=== PATIENT | female | born 1935 | race Caucasian/White ===

== ENCOUNTER 2024-04-04 09:19 | Outpatient (CLI) | payer MEDICARE, OTHER, SELFPAY | END 2024-04-04 09:20 | disposition home or self-care (01) | LOC: NFLDREF 04-08 02:47 | PROVIDERS: PCP Internal Medicine; Visit Provider Internal Medicine | DX: E78.5 Hyperlipidemia, unspecified (principal); I10 Essential (primary) hypertension | CPT/HCPCS: 80053; 80061 ==

== ENCOUNTER 2024-04-14 15:39 | Emergency (ER) | payer MEDICARE, OTHER, SELFPAY ==
--- OUTSIDE RECORDS SUMMARY | 2024-04-14 15:43 | XMS_ITS | Encounter Summary ---
Author Organization [facility] [employer] Formerly [facility] work Address [address] [place] [address] Care Team Providers Care Administrative Staff Supervisor Name Role Phone Marv Mcclendon MD Primary Care Provider + Encounter Details Date Type Department Care Team (Late st Contact Info) Description 06/25/2010 Logician Conversion V [facility] INFO MGT [address] [place] [phone] Social History Tobacco Use Types Packs/Day Years Used Date Smoking Tobacco: Never Assessed Comments Unknown Sex and Gender Information Value Date Recorded Sex Assigned at Not on file Legal Sex Female 12:19 PM EST Gender Identity Not on file Sexual Orientation Not on file documented as of this encounter Last Filed Vital Signs Vital Sign Reading Time Taken Comments Blood Pressure - - Pulse 60 06/25/2010 11:28 AM EDT Temperature - - Respiratory Rate - - Oxygen Saturation - - Inhaled Oxygen Concentration - - Weight 97.5 kg (215 lb) 06/25/2010 11:28 AM EDT Height - - Body Mass Index 35.78 01/30/2010 10:50 AM EST documented in this encounter Plan of Treatment Not on file documented as of this encounter Visit Diagnoses Not on filedocumented in this encounter Care Teams Administrative Staff Supervisor Relationship Specialty Start Date End Date Marv Mcclendon MD [address] [place] [address] PCP - General Internal Medicine 10/11/11 documented as of this encounter
--- OUTSIDE RECORDS SUMMARY | 2024-04-14 15:43 | XMS_ITS | Encounter Summary ---
Author Organization [facility] [employer] [facility] work Address [address] [place] [address] Care Team Providers Care Supervisor Chassis Assembly Name Role Phone Marv Mcclendon MD Primary Care Provider + Encounter Details Date Type Department Care Team (Late st Contact Info) Description 06/12/2011 Logician Conversion V [facility] INFO MGT [address] [place] [phone] Social History Tobacco Use Types Packs/Day Years [...] Taken Comments Blood Pressure - - Pulse 63 06/12/2011 11:32 AM EDT Temperature - - Respiratory Rate - - Oxygen Saturation - - Inhaled Oxygen Concentration - - Weight 96.7 kg (213 lb 1.6 oz) 06/12/2011 11:32 AM EDT Height - - Body Mass Index 35.46 01/30/2010 10:50 AM EST documented in this encounter Plan of Treatment Not on file documented as of this encounter Visit Diagnoses Not on filedocumented in this encounter Care Teams Supervisor Chassis Assembly Relationship Specialty Start Date End Date Marv Mcclendon MD [address] [place] [address] PCP - General Internal Medicine 10/11/11 documented as of this encounter
--- OUTSIDE RECORDS SUMMARY | 2024-04-14 15:44 | XMS_ITS | Encounter Summary ---
Author Organization [facility] [employer] [facility] work Address [address] [place] [address] Care Team Providers Care Health Care Facilities Inspector Name Role Phone Marv Mcclendon MD Primary Care Provider + Encounter Details Date Type Department Care Team (Late st Contact Info) Description 12/18/2010 Logician Conversion V [facility] INFO MGT [address] [place] [phone] Social History Tobacco Use Types Packs/Day Years [...] Taken Comments Blood Pressure - - Pulse 72 12/18/2010 8:19 AM EDT Temperature - - Respiratory Rate - - Oxygen Saturation - - Inhaled Oxygen Concentration - - Weight 94.3 kg (208 lb) 12/18/2010 8:19 AM EDT Height - - Body Mass Index 34.61 01/30/2010 10:50 AM EST documented in this encounter Plan of Treatment Not on file documented as of this encounter Visit Diagnoses Not on filedocumented in this encounter Care Teams Health Care Facilities Inspector Relationship Specialty Start Date End Date Marv Mcclendon MD [address] [place] [address] PCP - General Internal Medicine 10/11/11 documented as of this encounter
--- OUTSIDE RECORDS SUMMARY | 2024-04-14 15:44 | XMS_ITS | Encounter Summary ---
Author Organization [facility] Formerly [facility] work Address [address] [place] [address] Care Team Providers Care Manager Infrastructure Name Role Phone Marv Mcclendon MD Primary Care Provider + Encounter Details Date Type Department Care Team (Late st Contact Info) Description 01/30/2010 Logician Conversion V [facility] INFO MGT [address] [place] [phone] Social History Tobacco Use Types Packs/Day Years [...] Taken Comments Blood Pressure - - Pulse 98 01/30/2010 10:50 AM EST Temperature - - Respiratory Rate - - Oxygen Saturation - - Inhaled Oxygen Concentration - - Weight 99.3 kg (219 lb) 01/30/2010 10:50 AM EST Height 165.1 cm (5' 5) 01/30/2010 10:50 AM EST Body Mass Index 36.44 01/30/2010 10:50 AM EST documented in this encounter Plan of Treatment Not on file documented as of this encounter Visit Diagnoses Not on filedocumented in this encounter Care Teams Manager Infrastructure Relationship Specialty Start Date End Date Marv Mcclendon MD [address] [place] [address] PCP - General Internal Medicine 10/11/11 documented as of this encounter
--- OUTSIDE RECORDS SUMMARY | 2024-04-14 15:45 | XMS_ITS | Encounter Summary ---
Author Organization [facility] work Address [address] [place] [address] Care Team Providers Care Miller Helper Name Role Phone Marv Mcclendon MD Primary Care Provider + Reason for Visit * Reason Comments Medication Refill Encounter Details Date Type Department Care Team (Late st Contact Info) Description 01/25/2016 Refill [facility] [address] [place] [phone] Saira Norwood NP [address] [place] [address] [place] [phone] Medication Refill Social History Tobacco Use Types Packs/Day Years Used Date Smoking Tobacco: Never Smokeless Tobacco: Never Alcohol Use Standard Drinks/Week Comments Yes 0 (1 standard drink = 0.6 oz pur e alcohol) 1 drink a day Comments No Sex and Gender Information Value Date Recorded Sex Assigned at Not on file Legal Sex Female 12:19 PM EST Gender Identity Not on file Sexual Orientation Not on file documented as of this encounter Plan of Treatment Not on file documented as of this encounter Visit Diagnoses Diagnosis Essential hypertension, benign documented in this encounter Care Teams Miller Helper Relationship Specialty Start Date End Date Marv Mcclendon MD [address] [facility] [place] [address] PCP - General Internal Medicine 10/11/11 documented as of this encounter
--- OUTSIDE RECORDS SUMMARY | 2024-04-14 15:45 | XMS_ITS | Encounter Summary ---
Author Organization [employer] work Address [address] [place] [address] [place] [address] Care Team Providers Care Conveyor Feeder Offbearer Name Role Phone Marv Mcclendon MD Primary Care Provider + Encounter Details Date Type Department Care Team (Latest Contact Info) Description 01/26/2018 IHIE Encounter HILLARY Ochoa Doctor No Address on File Social History Tobacco Use Types Packs/Day Years [...] on file documented as of this encounter Procedure Notes * Doctor Don - 01/26/2018 6:27 PM ESTAssociated Order(s): HIE LABORATORY RESULT This final report originated from an external system. Edits and Signatures are only valid in the legal medical record. IHIE: Ammonia ORDERED BY: DANGELO TORREZ (BiiCode) Lab Result Units Range Ammonia 27 umol/L 18-72 * Doctor Don - 01/26/2018 6:27 PM ESTAssociated Order(s): HIE LABORATORY RESULT This final report originated from an external system. Edits and Signatures are only valid in the legal medical record. IHIE: TSH ORDERED BY: DANGELO [employer] (BiiCode) Lab Result Units Range TSH 0.40 uIU/mL 0.30-4.20 * Doctor Don - 01/26/2018 6:27 PM ESTAssociated Order(s): HIE LABORATORY RESULT This final report originated from an external system. Edits and Signatures are only valid in the legal medical record. IHIE: Vit B12 ORDERED BY: DANGELO [employer] (BiiCode) Lab Result Units Range Vitamin B12 Lvl 385 pg/mL 213-816 documented in this encounter Plan of Treatment Not on file documented as of this encounter Procedures Procedure Name Priority Date/Time Associated Diagnosis Comments HIE LABORATORY RESULT 01/26/2018 6:27 PM EST HIE LABORATORY RESULT 01/26/2018 6:27 PM EST HIE LABORATORY RESULT 01/26/2018 6:27 PM EST documented in this encounter Results * HIE LABORATORY RESULT (01/26/2018 6:27 PM EST) Narrative Procedure Note [facility] mattie - 01/26/2018 6:27 PM EST This final report originated from an external system. Edits and Signatures are only valid in the legal medical record. IHIE: Vit B12 ORDERED BY: DANGELO TORREZ (BiiCode) Lab Result Units Range Vitamin B12 Lvl 385 pg/mL 213-816 Doctor [employer] [id number] Final Result * HIE LABORATORY RESULT (01/26/2018 6:27 PM EST) Narrative Procedure Note [employer] mattie - 01/26/2018 6:27 PM EST This final report originated from an external system. Edits and Signatures are only valid in the legal medical record. IHIE: TSH ORDERED BY: DANGELO TORREZ (BiiCode) Lab Result Units Range TSH 0.40 uIU/mL 0.30-4.20 us Doctor [employer] [id number] Final Result * HIE LABORATORY RESULT (01/26/2018 6:27 PM EST) Narrative Procedure Note Doctor Don - 01/26/2018 6:27 PM EST This final report originated from an external system. Edits and Signatures are only valid in the legal medical record. IHIE: Ammonia ORDERED BY: DANGELO TORREZ (EPIC) Lab Result Units Range Ammonia 27 umol/L 18-72 us Doctor [employer] [id number] Final Result documented in this encounter Visit Diagnoses Not on filedocumented in this encounter Care Teams Conveyor Feeder Offbearer Relationship Specialty Start Date End Date Marv Mcclendon MD [address] [address] PCP - General Internal Medicine 10/11/11 documented as of this encounter
--- OUTSIDE RECORDS SUMMARY | 2024-04-14 15:45 | XMS_ITS | Clinical Summary ---
Author Organization [facility] Address [address] [place] [address] Care Team Providers Care Electronic Parts Designer Name Role Phone Malia Mcclendon MD Primary Care Provider Aide Anguiano MD Unavailable [phone] Colby Christopher MD Unavailable [phone] Allergies No known active allergies Medications pravastatin (PRAVACHOL) 40 mg tablet Take 40 mg by mouth nightly Active carvedilol (COREG) 6.25 mg tablet Take 6.25 mg by mouth 2 (two) times daily with meals. Active tolterodine (DETROL LA) 4 mg ER capsule Take 4 mg by mouth daily Active CRANBERRY FRUIT EXTRACT (CRANBERRY EXTRACT, BULK,) by Does not apply route daily Active Cislc-0-DVD-EPA -Fish Oil (FISH OIL) 1,000 mg (120 mg-180 mg) cap Take 1,000 mg by mouth daily Active cholecalciferol (VITAMIN D3) 400 unit tab Take 400 Units by mouth daily Active BENEFIBER, WHEAT DEXTRIN, PO Take by mouth Active zoledronic acid (ZOMETA IV) Inject into the vein once Active acetaminophen (TYLENOL) 500 mg tablet Take 500 mg by mouth every 6 (six) hours as needed for Pain Active naproxen sodium (ALEVE PO) Take by mouth Active sertraline (ZOLOFT) 100 mg tablet Take 100 mg by mouth daily 11/07/2020 Active Meclizine (ANTIVERT) 25 mg tablet 11/05/2020 Active traZODone (DESYREL) 50 mg tab tablet Take by mouth at bedtime daily 12/14/2020 Active Active Problems Problem Noted Date Diagnosed Date Status post parathyroidectomy 07/03/2019 Primary hyperparathyroidism 05/05/2018 Right thyroid nodule 05/05/2018 Osteopenia of hip 05/05/2018 Essential hypertension 05/05/2018 Postmenopausal osteoporosis 04/16/2016 History of invasive breast cancer 10/02/2010 Cancer Staging:Clinical stage from 03/18/2008:Stage IA(T1c, N0, M0) - Signed by Nate Olivarez MD on 04/16/2016 Assessment & Plan (10/02/2010 12:12 PM EDT): 2007 Hypercalcemia 10/02/2010 Nodular goiter 10/02/2010 Family History Medical History Relation Name Comments Cancer Brother 1X Hx prostate can cer Clotting Disorder Brother 1X Pacemaker Brother 1X Cancer Sister 2X Hx breast cance r Skin Cancer Sister 2X No Known Problems Son 3X Relation Name Status Comments Brother 1X Alive Father (Age 97) Age Maternal Grandfather Maternal Grandmother Mother (Age 77) Defibrilat ion Paternal Grandfather Paternal Grandmother Sister 2X Alive Son 3X Alive Social History Tobacco Use Types Packs/Day Years Used Date Smoking Tobacco: Never Smokeless Tobacco: Never Alcohol Use Standard Drinks/Week Comments Yes 0.8 (1 standard drink = 0.6 oz p ure alcohol) 1 DRINK PER DAY AUDIT-C Answer Date Recorded Frequency of Alcohol Consumption 4 or more times a week 05/02/2018 Average Number of Drinks Not on file 019 Frequency of Binge Drinking Not on file 04/15 Comments No Sex and Gender Information Value Date Recorded Sex Assigned at Not on file Legal Sex Female 10:01 PM EST Gender Identity Not on file Sexual Orientation Not on file Last Filed Vital Signs Vital Sign Reading Time Taken Comments Blood Pressure 138/61 12/27/2020 1:55 PM EST Pulse 84 12/27/2020 1:55 PM EST Temperature 37 C (98.6 F) 12/27/2020 1:55 PM EST Respiratory Rate 18 01/03/2020 1:04 PM EST Oxygen Saturation 100% 12/27/2020 1:55 PM EST Inhaled Oxygen Concentration - - Weight 77.1 kg (170 lb) 12/27/2020 1:55 PM EST Height 162.6 cm (5' 4) 12/27/2020 1:55 PM EST Body Mass Index 29.18 12/27/2020 1:55 PM EST Plan of Treatment Health Maintenance Due Date Last Done Comments Well Visit 1940 Depression Screening 06/01/1955 Tdap/Td Vaccination (1 - Tdap) 1958 Pneumococcal Vaccination (1 of 1 - PCV) 06/01/1987 Zoster (Shingrix) Vaccinatio n (1 of 2) 06/01/1987 RSV Vaccination (1 - 1-dose 75+ series) 2012 Lab-Diabetes Screening (Gluc ose or HgA1c) 12/27/2021 12/27/2020, 01/03/2020, 06/29/2019, Additional history exists Influenza Vaccination (#1) 2023 COVID-19 Vaccine (1 - 2023-2 5 season) 2023 Lab-Lipid Screening 08/30/2025 08/30/2020, 9 Procedures Procedure Name Priority Date/Time Associated Diagnosis Comments COMPREHENSIVE METABOLIC PANEL Routine 12/27/2020 1:46 PM EST Postmenopausal osteoporosis LIPID PROFILE WITH REFLEX TO LDL, DIRECT Routine 11/11/2018 11:11 AM EDT from Last 3 Months or Most Recently Relevant to Health Maintenance Results * (ABNORMAL) COMPREHENSIVE METABOLIC PANEL (12/27/2020 1:46 PM EST) GLUCOSE 122(H) 70 - 99 mg/dL [facility] BUN 21 7 - 25 mg/dL [facility] CREATININE 0.8 0.6 - 1.2 mg/dL [facility] SODIUM 136 133 - 144 meq/L [facility] POTASSIUM 3.7 3.5 - 5.2 meq/L [facility] CHLORIDE 99 98 - 107 meq/L [facility] CARBON DIOXIDE 30.0 21.0 - 31.0 meq/L [facility] CALCIUM 9.8 8.6 - 10.3 mg/dL [facility] ALBUMIN 4.2 3.5 - 5.7 g/dL [facility] PROTEIN, TOTAL 7.1 6.4 - 8.9 g/dL [facility] ALKALINE PHOSPHATASE (ALP) 52 34 - 104 U/L [facility] AST (SGOT) 16 13 - 39 U/L [facility] ALT (SGPT) 15 7 - 52 U/L [facility] BILIRUBIN TOTAL 0.8 0.3 - 1.0 mg/dL [facility] ANION GAP 7.0 6.2 - 14.7 meq/L [facility] Plasma Venipuncture / Unknown 12/27/2020 1:46 PM EST 12/27/2020 1:58 PM EST Nate Olivarez MD LAB BLOOD ORDERABLES Final R esult [facility] * LIPID PANEL (11/11/2018 11:11 AM EDT) TRIGLYCERIDES 96 0 - 150 EXTERNAL LAB CHOLESTEROL 183 0 - 200 EXTERNAL LAB HDL CHOLESTEROL 66 >39 EXTERNAL LAB LDL CHOLESTEROL 98 0 - 100 EXTERNAL LAB NON-HDL CHOLESTEROL 117.10 0.00 - 130.00 EXTERNAL LAB VLDL Calculated 19 5 - 35 EXTERNAL LAB CHOL HDLC RATIO 2.8 2.5 - 5.0 EXTERNAL LAB Blood Historical Provider LAB BLOOD ORDERABLES Edited Result - Final EXTERNAL LAB from Last 3 Months or Most Recently Relevant to Health Maintenance Insurance MEDICARE FOR LIFE WPS Advance Directives Documents on File Type Date Recorded Patient Meeting Planner Expl anation Advanced Directives 07/05/2019 4:12 PM Advanced Directives 07/05/2019 7:39 AM Power of Fitting Supervisor 02/19/2015 9:52 AM [place]eru scan, Living will Power of Fitting Supervisor 02/19/2015 9:52 AM [place]eru scan, Living will pg 2 * Full Code (Latest Code Status on File) Date Activated Date Inactivated Comments 07/03/2019 2:46 PM 07/04/2019 5:25 PM A code statu s order for Full Code means all appropriate CPR measures as defined in Code Status policy will be initiated in the event of cardiac and/or pulmonary arrest. Care Teams Electronic Parts Designer Relationship Specialty Start Date End Date Malia Mcclendon MD PCP - General 10/03/10 Aide Anguiano MD [address] [place] [address] Hematology and Oncology 10/03/10 Colby Christopher MD [address] [place] [address] 10/03/10
--- OUTSIDE RECORDS SUMMARY | 2024-04-14 15:45 | XMS_ITS | Clinical Summary ---
Author Organization [employer] Address [address] [place] [address] [place] [address] Care Team Providers Care Chief Human Resources Officer Name Role Phone Marv Mcclendon MD Primary Care Provider + Allergies No known active allergies Medications pravastatin (PRAVACHOL) 40 MG tablet Take 1 tablet by mouth daily. 5 08/27/2014 Active cranberry extract 500 mg Tab Take 1 tablet by mouth Daily after dinner. 02/19/2018 Active tolterodine (DETROL LA) 4 MG 24 hr capsule Take 4 mg by mouth daily. Active omega 6-cph-sfa-fish oil (FISH OIL) 1,000 mg (120 mg-180 mg) Cap Take 1 tablet by mouth as needed. 02/19/2018 Active aspirin 81 MG enteric coated tablet Take ONE tablet (81 mg total) by mouth daily with breakfast. 30 tablet 2 02/05/2018 Active carvedilol (COREG) 6.25 MG tablet Take 6.25 mg by mouth 2 (two) times daily with meals. Active Active Problems Problem Noted Date Diagnosed Date Heart murmur 01/05/2014 Carotid bruit 01/05/2014 Obesity (BMI 30.0-34.9) 01/05/2014 Metabolic syndrome 01/05/2014 Dyslipidemia 06/10/2012 High risk medication use with drug - drug intera ction 06/10/2012 ASHD (arteriosclerotic heart disease) 12/11/2011 Arthritis 12/11/2011 Encounter for long-term (cur rent) use of high-risk medication 12/11/2011 Hypercholesterolemia 10/11/2011 Primary hyperparathyroidism 10/11/2011 Essential hypertension, benign 10/11/2011 Sleep apnea 10/11/2011 Overview (03/11/2015): Updated VIA IMO REplacement Resolved Problems Problem Noted Date Diagnosed Date Resolved Date Weakness generalized 01/28/2018 019 [place] (dyspnea on exertion) 12/11/2011 Malaise and fatigue 10/11/2011 04/23/19 19 Overview (03/13/2015): Updated by IMO Diagnosis Update Type 2 diabetes mellitus wit hout complications 10/11/2011 10/20/2011 Overview (03/13/2015): Updated by IMO Diagnosis Update Immunizations Name Administration Dates Next Due Fluzone Intramuscular 12/29/2012 Family History Medical History Relation Comments Dementia Brother Relation Status Comments Brother Alive Father Mother Social History Tobacco Use Types Packs/Day Years [...] Sign Reading Time Taken Comments Blood Pressure 119/75 09/07/2019 9:16 AM EDT Pulse 72 05/25/2018 10:47 AM EDT Temperature 36.9 C (98.5 F) 02/13/2018 2:39 PM EST Respiratory Rate 18 02/08/2018 7:42 AM EST Oxygen Saturation 98% 05/25/2018 10:47 AM EDT Inhaled Oxygen Concentration - - Weight 90.7 kg (200 lb) 09/07/2019 9:16 AM EDT Height 162.6 cm (5' 4) 09/07/2019 9:16 AM EDT Body Mass Index 34.33 09/07/2019 9:16 AM EDT Plan of Treatment Health Maintenance Due Date Last Done Comments Diabetes Foot Exam 1935 Diabetes Ophthalmology Exam 1937 SDOH 1935 Tetanus/Pertussis Adult Vacc ine (One-time Booster) 1956 Pneumococcal Vaccine Series (Ages 65+) (1 of 1 - PCV) 06/01/1987 Zoster Vaccines (1 of 2) 06/01/1987 Annual Medicare Wellness Exam 01/05/2014 Hemoglobin A1c 08/14/2018 02/13/2018, 12/19/2009 COVID-19 Vaccine ( season) 2023 Influenza Vaccine (#1) 2023 12/29/2012 Annual Adult Depression Screen 02/16/2024 Medical Devices Implanted Type Area Felt Hat Pouncing Operator Hand Device Identifier Shelf Expiration Date Model / Serial / Lot Lens Toric Iq 22.0 Iol ([id number]) - [id number] Implanted:Qty: 1 on 10/20/2011 by Filipe Monique MD at [facility] 01/16/2016 / [id number] / Implant Inj 1ml Syr Coaptite ([id number]) - [id number] Implanted:Qty: 1 on 05/04/2017 [facility] N/A: Urethra [employer] [facility] [id number] 06/18/2019 [id number] / / [id number] Procedures Procedure Name Priority Date/Time Associated Diagnosis Comments HEMOGLOBIN A1C WITH EAG Routine 02/13/2018 1:30 PM EST from Last 3 Months or Most Recently Relevant to Health Maintenance Results * (ABNORMAL) Hemoglobin A1c (02/13/2018 1:30 PM EST) Hemoglobin A1C 5.8(H) <5.7% % MACL Comment: < 5.7 % Decreased risk of diabetes 5.7 - 6.4 % Increased risk of diabetes > or = 6.5 % Consistent with diabetes >> These Reference Intervals are supported by the current Standards of Medical Care in Diabetes published in February 2016 in the Diabetes Care, the Journal of the [place] [employer] Association. Care must be taken when interpreting Hemoglobin A1C results from patients with hemoglobin variants/abnormalities. Falsely elevated or decreased results may occur. Estimated Average Glucose 120 MG/DL (CALC) MACL Comment: Test Performed at: [facility] [employer] [address] [place] [address] [place] [address] CROW MUNOZ MD Blood specimen (specimen) 02/13/2018 1:30 PM EST 02/13/2018 10:13 PM EST Narrative Resulting Agency Comment Performing Organization Information: Site ID: [id number] Name: Address: , Director: us Not On Staff LAB BLOOD ORDERABLES Final Resul t MACL [address] from Last 3 Months or Most Recently Relevant to Health Maintenance Insurance MEDICARE PART A AND B [employer] MEDICARE PART A AND B FOR LIFE MEDICARE PART A AND B [facility] Malia [facility] Rolling Address: [address] [place] [id number] FOR LIFE MEDICARE PART A AND B FOR LIFE Advance Directives For more information, please contact: [phone] [phone] * Full Code (Latest Code Status on File) Date Activated Date Inactivated Comments 01/28/2018 10:50 PM 02/08/2018 1:23 PM Care Teams Chief Human Resources Officer Relationship Specialty Start Date End Date Marv Mcclendon MD [address] [facility] [address] [place] [phone] PCP - General Internal Medicine 10/11/11
--- OUTSIDE RECORDS SUMMARY | 2024-04-14 15:45 | XMS_ITS | Encounter Summary ---
Author Organization [facility] Address [address] [place] [address] Phone Care Team Providers Care Licensed Audiologist Name Role Phone Malia Mcclendon MD Primary Care Provider [phone] Aide Anguiano MD Unavailable [phone] Colby Christopher MD Unavailable [phone] Encounter Details Date Type Department Care Team (Late st Contact Info) Description 12/20/2019 Orders Only Pharmacy - [facility] [address] [place] [address] Nolvia Zimmerman RPh Postmenopausal osteoporosis (Primary Dx) Social History Smoking Status as of 07/03/2019 Tobacco Use Types Packs/Day Years Used Date Smoking Tobacco: Never Smokeless Tobacco: Never Smoking Status as of 05/01/2016 Tobacco Use Types Packs/Day Years Used Date Smoking Tobacco: Never Alcohol Use as of 07/03/2019 Alcohol Use Standard Drinks/Week Comments Yes 0.8 [...] as of this encounter Visit Diagnoses Diagnosis Postmenopausal osteoporosis- Primary Senile osteoporosis documented in this encounter Care Teams Licensed Audiologist Relationship Specialty Start Date End Date Malia Mcclendon MD PCP - General 10/03/10 Aide Anguiano MD [address] [place] [address] Hematology and Oncology 10/03/10 Colby Christopher MD [address] [place] [address] 10/03/10 documented as of this encounter
--- OUTSIDE RECORDS SUMMARY | 2024-04-14 15:45 | XMS_ITS | Encounter Summary ---
Author Organization [employer] work Address [address] [place] [address] [place] [address] Care Team Providers Care Telecommunications Network Engineer Name Role Phone Marv Mcclendon MD Primary Care Provider + Encounter Details Date Type Department Care Team (Latest Contact Info) Description 08/15/2017 IHIE Encounter IHIE [employer], Doctor No Address on File Social History [...] as of this encounter Procedure Notes * Don Doctor - 08/15/2017 10:55 AM EDTAssociated Order(s): HIE RADIOLOGY REPORT This final report originated from an external system. Edits and Signatures are only valid in the legal medical record. IHIE: MRI Brain w/ + w/o Contrast ORDERED BY: TABBY LOAIZA ([facility]) [id number] Report: Radiology ([place]) Pt: MICHAEL CHESTER : 1935 MR#: [id number] Acct: [id number] Procedure: MRI Brain w/ + w/o Contrast Procedure Date: 08/15/2017 10:55:07 Location: [facility] Attending Physician: Ordering Physician: Tabby Loaiza EXAM: MRI BRAIN WITH AND WITHOUT CONTRAST INDICATION: TIA rule out ; TIA & new acute headache TECHNIQUE: Multiplanar multisequence magnetic resonance imaging of the brain was performed with and without IVcontrast. COMPARISON: Head CT 08/14/2017 FINDINGS: VENTRICLES AND CISTERNAL SPACES: The ventricles and sulci are within normal limits for age. CEREBELLUM AND BRAINSTEM: There is patchy T2 signal within the kieran. No abnormal T2 signal is notedin the cerebellum. CEREBRAL PARENCHYMA: On long TR images, there is no abnormal cortical signal.There is severe white matter disease. There is confluent abnormal T2 signal in the periatrial white matter. There are multiple T2 lesions in the basal ganglia. Multiple T2 lesions are seen scattered in the subcortical white matter. Diffusion/GRE imaging: On diffusion weighting, there is question of a very tiny area of interim immediate restricted diffusion in the posterior aspect of the insular cortex. Question if this could represent a tiny focus of incomplete or subacute ischemia. No other areas of acute ischemia are evident.No acute parenchymal hemorrhage is noted. CONTRAST: With administration of contrast, there is no abnormal enhancement. MIDLINE STRUCTURES: The pituitary gland is not enlarged. There is no Chiari malformation. There is some a super it pannus formation at C1-2. This is presumably all degenerative related change. ARTERIAL FLOW VOIDS: There are expected flow voids in the carotid and basilar arteries.. DURAL VENOUS SINUSES: The dural venous sinuses are grossly patent. CALVARIUM, SKULL BASE: The calvarium and skull base are grossly unremarkable. PARANASAL SINUSES AND MASTOIDS: The sinuses and mastoids are grossly clear. There is deformity of the medial wall of the left orbit consistent with an old injury. IMPRESSION: There is a very small focus of intermediate signal alteration on diffusion weighting in the right insular cortex posteriorly. Question if this could represent an area of incomplete ischemia or subacute ischemia. No other areas of definitive acute ischemia are noted. 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 No abnormal enhancement is noted. There are no findings to indicate intracranial metastatic disease. Electronically Signed By: Saira Arora M.D. On: 08/16/2017 9:58:16 AM * Doctor Don - 08/15/2017 10:10 AM EDTAssociated Order(s): HIE RADIOLOGY REPORT This final report originated from an external system. Edits and Signatures are only valid in the legal medical record. IHIE: CT Angio Head w/ + w/o Contrast ORDERED BY: TABBY LOAIZA ([facility]) [id number] Report: Radiology ([place]) Pt: MICHAEL CHESTER : 1935 MR#: [id number] Acct: [id number] Procedure: CT Angio Head w/ + w/o Contras Procedure Date: 08/15/2017 10:10:43 Location: [facility] Attending Physician: Ordering Physician: Tabby Loaiza EXAM: CT ANGIOGRAPHY HEAD WITH AND WITHOUT CONTRAST INDICATION: TIA rule out ; TIA TECHNIQUE: Low dose, multichannel computerized tomography of the intracranial vessels was performed with and without IV contrast. Multiplanar reformats and 3D MIP images were reviewed. COMPARISON: None FINDINGS: CT angiography is performed of the head and neck without and with bolus IV contrast. Acquisition ismade utilizing the CT angiography protocol. 2D and 3D reformatted images of the vessels are reviewed. Soft tissue analysis: Apices of the lungs are unremarkable. Thyroid bed is unremarkable. Airway is patent. There is streak artifact from dental fillings. Parotid beds are unremarkable. Parapharyngealspaces are clear. Submandibular glands are unremarkable. Globes are intact. Paranasal sinuses and mastoid air cells are unremarkable. Calvarial vault is unremarkable. There is degenerative change of the cervical spine. There is a large pannusassociated with C1-C2. Is there history of rheumatoid arthritis? 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 Bovine origin is patent. Right brachiocephalic artery is patent. Right subclavian artery is patent. Left subclavian artery is patent. Right common carotid artery is patent. Right carotid bifurcation is patent. Right cervical internal carotid artery is patent without significant stenosis based uponNASCET criteria. There are patent right M1 and A1 segments. There is no significant right posteriorcommunicating artery. The left common carotid artery is patent. The left carotid bifurcation is patent. However, there is felt to be up to approximately 50% stenosis of the distal left common carotid artery. There is no significant left internalcarotid artery stenosis based upon NASCET criteria. However, there is short segment occlusion of the proximal left external carotid artery. There are patent left M1 and A1 segments. There is significant left posterior communicating artery.The vertebral arteries are patent. There is a right vertebral dominant system. Basilar artery is patent. Posterior cerebral arteries are patent. There is no abrupt intracranial vascular cut off. IMPRESSION: Bovine aortic arch. No significant right internal carotid occlusive disease based upon NASCET criteria. 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 No significant left internal carotid occlusive disease based upon NASCET criteria. No abrupt intracranial vascular cut off. Patent vertebral arteries. Large pannus set C1-C2. Is there history of rheumatoid arthritis. Degenerative changecervical spine. No significant lymphadenopathy. Electronically Signed By: Julien Loaiza M.D. On: 08/16/2017 9:33:01 AM * Doctor Don - 08/15/2017 4:01 AM EDTAssociated Order(s): HIE LABORATORY RESULT This final report originated from an external system. Edits and Signatures are only valid in the legal medical record. IHIE: Vit B12 ORDERED BY: TABBY LOAIZA ([facility]) Lab Result Units Range Vitamin B12 Lvl 335 pg/mL 213-816 * Doctor Don - 08/15/2017 4:01 AM EDTAssociated Order(s): HIE LABORATORY RESULT This final report originated from an external system. Edits and Signatures are only valid in the legal medical record. IHIE: TSH ORDERED BY: TABBY LOAIZA ([facility]) Lab Result Units Range TSH 1.40 uIU/mL 0.30-4.20 * Don Doctor - 08/15/2017 4:01 AM EDTAssociated Order(s): HIE LABORATORY RESULT This final report originated from an external system. Edits and Signatures are only valid in the legal medical record. IHIE: Free T4 ORDERED BY: TABBY [employer] ([facility]) Lab Result Units Range T4 Free 1.03 ng/mL 0.70-1.50 * Doctor Don - 08/15/2017 4:01 AM EDTAssociated Order(s): HIE LABORATORY RESULT This final report originated from an external system. Edits and Signatures are only valid in the legal medical record. IHIE: Lipid Panel Standard ORDERED BY: [employer] ([facility]) Lab Result Units Range Cholesterol Total 154 mg/dL 120-200 HDL Cholesterol 43 mg/dL 40-85 LDL Calculated 95 mg/dL 0-130 NOTE: RLDL LDL CALCULATION MAY BE INACCURATE WHEN TRIGLYCERIDES NOTE: ARE >400 MG/DL. IF INACCURATE CALCULATED LDL RESULTS ARE NOTE: SUSPECTED, PLEASE REQUEST DIRECT LDL MEASUREMENT. Trig 82 mg/dL 0-150 Chol/HDL Ratio 4 NOTE: RRISK RISK RATIO INTERPRETATION: NOTE: MALE FEMALE LOWEST <3.9 NOTE: <3.0 LOW 3.9-4.7 3.0-3.6 NOTE: MODERATE 4.8-5.9 3.7-4.6 HIGH NOTE: 6.0-6.9 4.7-5.6 HIGHEST >6.9 NOTE: >5.6 Breakpoint documented in this encounter Plan of Treatment Not on file documented as of this encounter Procedures Procedure Name Priority Date/Time Associated Diagnosis Comments [facility] RADIOLOGY REPORT 08/15/2017 10:55 AM EDT [facility] RADIOLOGY REPORT 08/15/2017 10:10 AM EDT [facility] LABORATORY RESULT 08/15/2017 4:01 AM EDT [facility] LABORATORY RESULT 08/15/2017 4:01 AM EDT HIE LABORATORY RESULT 08/15/2017 4:01 AM EDT HIE LABORATORY RESULT 08/15/2017 4:01 AM EDT documented in this encounter Results * [facility] RADIOLOGY REPORT (08/15/2017 10:55 AM EDT) Anatomical Region Laterality Modality Other Narrative Procedure Note Doctor Don - 08/15/2017 10:55 AM EDT This final report originated from an external system. Edits and Signatures are only valid in the legal medical record. IHIE: MRI Brain w/ + w/o Contrast ORDERED BY: TABBY LOAIZA ([facility]) [id number] Report: Radiology ([place]) Pt: MICHAEL CHESTER : 1935 MR#: [id number] Acct: [id number] Procedure: MRI Brain w/ + w/o Contrast Procedure Date: 08/15/201710:55:07 Location: [facility] Attending Physician: Ordering Physician: Tabby Loaiza EXAM: MRI BRAIN WITH AND WITHOUT CONTRAST INDICATION: TIA rule out ; TIA & new acute headache TECHNIQUE: Multiplanar multisequence magnetic resonance imaging of the brain wasperformed with and without IV contrast. COMPARISON: Head CT 08/14/2017 FINDINGS: VENTRICLES AND CISTERNAL SPACES: The ventricles and sulci are withinnormal limits for age. CEREBELLUM AND BRAINSTEM: There is patchy T2 signal within the kieran. Noabnormal T2 signal is noted in the cerebellum. CEREBRAL PARENCHYMA: On long TR images, there is no abnormal corticalsignal.There is severe white matter disease. There is confluent abnormalT2 signal in the periatrial white matter. There are multiple T2 lesionsin the basal ganglia. Multiple T2 lesions are seen scattered in the subcortical white matter. Diffusion/GRE imaging: On diffusion weighting, there is question of a verytiny area of interim immediate restricted diffusion in the posterioraspect of the insular cortex. Question if this could represent a tinyfocus of incomplete or subacute ischemia. No other areas of acute ischemia are evident.No acuteparenchymal hemorrhage is noted. CONTRAST: With administration of contrast, there is no abnormalenhancement. MIDLINE STRUCTURES: The pituitary gland is not enlarged. There is noChiari malformation. There is some a super it pannus formation at C1-2.This is presumably all degenerative related change. ARTERIAL FLOW VOIDS: There are expected flow voids in the carotid andbasilar arteries.. DURAL VENOUS SINUSES: The dural venous sinuses are grossly patent. CALVARIUM, SKULL BASE: The calvarium and skull base are grosslyunremarkable. PARANASAL SINUSES AND MASTOIDS: The sinuses and mastoids are grosslyclear. There is deformity of the medial wall of the left orbit consistentwith an old injury. IMPRESSION: There is a very small focus of intermediate signal alteration on diffusionweighting in the right insular cortex posteriorly. Question if this couldrepresent an area of incomplete ischemia or subacute ischemia. No otherareas of definitive acute ischemia are noted. There is fairly severe white matter disease presumably due to small vesselischemic disease. No abnormal enhancement is noted. There are no findings to indicateintracranial metastatic disease. Electronically Signed By: Saira Arora M.D. On: 08/16/2017 9:58:16 AM us Doctor [employer] [id number] Final Result * HIE RADIOLOGY REPORT (08/15/2017 10:10 AM EDT) Anatomical Region Laterality Modality Other Narrative Procedure Note Doctor Don - 08/15/2017 10:10 AM EDT This final report originated from an external system. Edits and Signatures are only valid in the legal medical record. IHIE: CT Angio Head w/ + w/o Contrast ORDERED BY: TABBY LOAIZA ([facility]) [id number] Report: Radiology ([place]) Pt: MICHAEL CHESTER : 1935 MR#: [id number] Acct: [id number] Procedure: CT Angio Head w/ + w/o Contras Procedure Date: 08/15/201710:10:43 Location: [facility] Attending Physician: Ordering Physician: Tabby Loaiza EXAM: CT ANGIOGRAPHY HEAD WITH AND WITHOUT CONTRAST INDICATION: TIA rule out ; TIA TECHNIQUE: Low dose, multichannel computerized tomography of the intracranial vesselswas performed with and without IV contrast. Multiplanar reformats and 3DMIP images were reviewed. COMPARISON: None FINDINGS: CT angiography is performed of the head and neck without and with bolus IVcontrast. Acquisition is made utilizing the CT angiography protocol. 2Dand 3D reformatted images of the vessels are reviewed. Soft tissue analysis: Apices of the lungs are unremarkable. Thyroid bedis unremarkable. Airway is patent. There is streak artifact from dentalfillings. Parotid beds are unremarkable. Parapharyngeal spaces areclear. Submandibular glands are unremarkable. Globes are intact. Paranasal sinuses and mastoid air cellsare unremarkable. Calvarial vault is unremarkable. There is degenerativechange of the cervical spine. There is a large pannus associated withC1-C2. Is there history of rheumatoid arthritis? 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 Bovine origin ispatent. Right brachiocephalic artery is patent. Right subclavian arteryis patent. Left subclavian artery is patent. Right common carotid arteryis patent. Right carotid bifurcation is patent. Right cervical internal carotid artery is patent withoutsignificant stenosis based upon NASCET criteria. There are patent rightM1 and A1 segments. There is no significant right posterior communicatingartery. The left common carotid artery is patent. The left carotid bifurcation is patent. However, thereis felt to be up to approximately 50% stenosis of the distal left commoncarotid artery. There is no significant left internal carotid arterystenosis based upon NASCET criteria. However, there is short segment occlusion of the proximal left externalcarotid artery. There are patent left M1 and A1 segments. There is significant leftposterior communicating artery. The vertebral arteries are patent. Thereis a right vertebral dominant system. Basilar artery is patent.Posterior cerebral arteries are patent. There is no abrupt intracranial vascular cut off. IMPRESSION: Bovine aortic arch. No significant right internal carotid occlusivedisease based upon NASCET criteria. 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 Nosignificant left internal carotid occlusive disease based upon NASCET criteria. No abrupt intracranialvascular cut off. Patent vertebral arteries. Large pannus set C1-C2. Isthere history of rheumatoid arthritis. Degenerative change cervicalspine. No significant lymphadenopathy. Electronically Signed By: Julien Loaiza M.D. On: 08/16/2017 9:33:01 AM Doctor [employer] [id number] Final Result * HIE LABORATORY RESULT (08/15/2017 4:01 AM EDT) Narrative Procedure Note Automattie, Doctor - 08/15/2017 4:01 AM EDT This final report originated from an external system. Edits and Signatures are only valid in the legal medical record. IHIE: Lipid Panel Standard ORDERED BY: TABBY LOAIZA ([facility]) Lab Result Units Range Cholesterol Total 154 mg/dL 120-200 HDL Cholesterol 43 mg/dL 40-85 LDL Calculated 95 mg/dL 0-130 NOTE: RLDL LDL CALCULATION MAY BE INACCURATE WHENTRIGLYCERIDES NOTE: ARE >400 MG/DL. IF INACCURATE CALCULATED LDL RESULTSARE NOTE: SUSPECTED, PLEASE REQUEST DIRECT LDL MEASUREMENT. Trig 82 mg/dL 0-150 Chol/HDL Ratio 4 NOTE: RRISK RISK RATIO INTERPRETATION: NOTE: MALE FEMALE LOWEST<3.9 NOTE: <3.0 LOW 3.9-4.73.0-3.6 NOTE: MODERATE 4.8-5.9 3.7-4.6HIGH NOTE: 6.0-6.9 4.7-5.6 HIGHEST>6.9 NOTE: >5.6 Breakpoint Doctor [employer] [id number] Final Result * HIE LABORATORY RESULT (08/15/2017 4:01 AM EDT) Narrative Procedure Note Don Doctor - 08/15/2017 4:01 AM EDT This final report originated from an external system. Edits and Signatures are only valid in the legal medical record. IHIE: Free T4 ORDERED BY: TABBY [employer] ([facility]) Lab Result Units Range T4 Free 1.03 ng/mL 0.70-1.50 Doctor [employer] [id number] Final Result * HIE LABORATORY RESULT (08/15/2017 4:01 AM EDT) Narrative Procedure Note Don Doctor - 08/15/2017 4:01 AM EDT This final report originated from an external system. Edits and Signatures are only valid in the legal medical record. IHIE: TSH ORDERED BY: TABBY [employer] ([facility]) Lab Result Units Range TSH 1.40 uIU/mL 0.30-4.20 Doctor [employer] [id number] Final Result * HIE LABORATORY RESULT (08/15/2017 4:01 AM EDT) Narrative Procedure Note [employer], Doctor - 08/15/2017 4:01 AM EDT This final report originated from an external system. Edits and Signatures are only valid in the legal medical record. IHIE: Vit B12 ORDERED BY: TABBY LOAIZA ([facility]) Lab Result Units Range Vitamin B12 Lvl 335 pg/mL 213-816 Doctor [employer] [id number] Final Result documented in this encounter Visit Diagnoses Not on filedocumented in this encounter Care Teams Telecommunications Network Engineer Relationship Specialty Start Date End Date Marv Mcclendon MD [address] [place] [phone] PCP - General Internal Medicine 10/11/11 documented as of this encounter
--- OUTSIDE RECORDS SUMMARY | 2024-04-14 15:45 | XMS_ITS | Referral Summary ---
Author Organization [facility] Address [address] [place] [address], [place] [address] Care Team Providers Care Plant Cytologist Name Role Phone Marv Mcclendon Primary Care Provider + Allergies No known active allergies Social History Tobacco Use Types Packs/Day Years Used Date Smoking Tobacco: Never Assessed Comments Unknown Sex and Gender Information Value Date Recorded Sex Assigned at Not on file Legal Sex Female 6:32 PM EDT Gender Identity Not on file Sexual Orientation Not on file Last Filed Vital Signs Vital Sign Reading Time Taken Comments Blood Pressure 136/92 11/05/2020 6:59 AM EDT Pulse 64 11/05/2020 6:59 AM EDT Temperature 36.6 C (97.8 F) 11/05/2020 2:57 AM EDT Respiratory Rate 14 11/05/2020 2:57 AM EDT Oxygen Saturation 99% 11/05/2020 6:59 AM EDT Inhaled Oxygen Concentration - - Weight 83.3 kg (183 lb 10.3 oz) 11/05/2020 2:57 AM EDT Height 163.8 cm (5' 4.5) 01/23/2009 12 :00 AM EST Body Mass Index - - Plan of Treatment Not on file Insurance MEDICARE PART A & B [facility] MEDICARE Care Teams Plant Cytologist Relationship Specialty Start Date End Date Marv Mcclendon [address] [facility] [address] [place] [phone] PCP - General Internal Medicine 11/05/20
--- OUTSIDE RECORDS SUMMARY | 2024-04-14 15:45 | XMS_ITS | Encounter Summary ---
Author Organization [facility] work Address [address] [place] [address] Care Team Providers Care Video Game Maker Name Role Phone Marv Mcclendon MD Primary Care Provider + Encounter Details Date Type Department Care Team (Late st Contact Info) Description 02/26/2014 Orders Only [facility] [address] [facility] [address] [place] [phone] Colby Christopher MD [address] [facility] [address] [place] [address] CHESTER (dyspnea on exertion) (Primary Dx) Social History Tobacco Use Types Packs/Day Years [...] as of this encounter Visit Diagnoses Diagnosis CHESTER (dyspnea on exertion)- Primary Other dyspnea and respiratory abnormality documented in this encounter Care Teams Video Game Maker Relationship Specialty Start Date End Date Marv Mcclendon MD [address] [place] [phone] PCP - General Internal Medicine 10/11/11 documented as of this encounter
--- OUTSIDE RECORDS SUMMARY | 2024-04-14 15:45 | XMS_ITS | Clinical Summary ---
Author Organization [facility] Address [address] [place] [address], [place] [address] Care Team Providers Care Email Production Specialist Name Role Phone Marv Mcclendon Primary Care [...] Mass Index - - Plan of Treatment Health Maintenance Due Date Last Done Comments Dexa Scan 1935 DTaP,Tdap,and Td Vaccines (1 - Tdap) 1954 RSV 60+ years or (1 - 1-dose 75+ series) 2012 COVID-19 Vaccine ( - season) 2023 02/25/2021, 04/12/2020, 03/15/2020 Influenza Vaccine (#1) 2023 , 12/06/2019, 12/26/2018, Additional history exists Zoster Vaccines Completed 09/16/2017, 06/14/2017 Pneumococcal Vaccine: 50+ Years Completed 06/17/2018, 06/14/2017 Meningococcal B Vaccine Aged Out No l onger eligible based on patient's age to complete this topic Insurance MEDICARE PART A & B [employer] MEDICARE Care Teams Email Production Specialist Relationship Specialty Start Date End Date Marv Mcclendon [address] [place] [phone] PCP - General Internal Medicine 11/05/20
[2024-04-14 15:47] VITALS: BP 155/94; PULSE 68; RESP 18; TEMP 36.4; O2SAT 98
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
[2024-04-14 17:00] VITALS: BP 172/87
--- OUTSIDE RECORDS SUMMARY | 2024-04-14 17:15 | XMS_ITS | Clinical Summary ---
Author Organization [facility] Address [address] [place] [address] Care Team Providers Care Broadcast Checker Name Role Phone Maila Mcclendon MD Primary Care Provider [phone] Aide Anguiano MD Unavailable [phone] Colby Christopher MD Unavailable [phone] Allergies No known active allergies Medications pravastatin (PRAVACHOL) 40 mg tablet Take 40 mg by mouth nightly Active carvedilol (COREG) 6.25 mg tablet Take 6.25 mg by mouth 2 (two) times daily with meals. Active tolterodine (DETROL LA) 4 mg ER capsule Take 4 mg by mouth daily Active CRANBERRY FRUIT EXTRACT (CRANBERRY EXTRACT, BULK,) by Does not apply route daily Active [id number] -Fish Oil (FISH OIL) 1,000 mg (120 [...] ALT (SGPT) 15 7 - 52 U/L [facility] BILIRUBIN TOTAL 0.8 0.3 [...] Documents on File Type Date Recorded Patient Zigzag Topstitcher Expl anation Advanced Directives 07/05/2019 4:12 PM Advanced Directives 07/05/2019 7:39 AM Power of Automatic Trimming Sewer 02/19/2015 9:52 AM [place] scan, Living will Power of Automatic Trimming Sewer 02/19/2015 9:52 AM [facility] scan, Living will pg 2 * Full Code (Latest Code Status on File) Date Activated Date Inactivated Comments 07/03/2019 2:46 PM 07/04/2019 5:25 PM A code statu s order for Full Code means all appropriate CPR measures as defined in Code Status policy will be initiated in the event of cardiac and/or pulmonary arrest. Care Teams Broadcast Checker Relationship Specialty Start Date End Date Malia Mcclendon MD PCP - General 10/03/10 Aide Anguiano MD [address] [place] [address] Hematology and Oncology 10/03/10 Colby Christopher MD [address] [place] [address] 10/03/10
--- OUTSIDE RECORDS SUMMARY | 2024-04-14 17:15 | XMS_ITS | Encounter Summary ---
Author Organization [employer] work Address [address] [place] [address] [place] [address] Care Team Providers Care Financial Planning Consultant Name Role Phone Marv Mcclendon MD Primary [...] + w/o Contrast ORDERED BY: TABBY LOAIZA ([facility]) [id number] Report: Radiology ([place]) Pt: MICHAEL CHESTER : 1935 MR#: [id number] Acct: [id number] Procedure: MRI Brain w/ + w/o Contrast Procedure Date: 08/15/2017 10:55:07 Location: [facility] Attending Physician: Ordering Physician: Tabby Loaiza EXAM: [...] + w/o Contrast ORDERED BY: TABBY LOAIZA ([employer]) [id number] Report: Radiology ([place]) Pt: MICHAEL CHESTER : 1935 MR#: [id number] Acct: [id number] Procedure: CT Angio Head w/ + w/o Contras Procedure Date: 08/15/2017 10:10:43 Location: [facility] Attending Physician: Ordering Physician: Tabby Loaiza EXAM: [...] IHIE: Vit B12 ORDERED BY: TABBY LOAIZA ([employer]) Lab Result Units Range Vitamin B12 Lvl 335 pg/mL 213-816 * Doctor Don - 08/15/2017 4:01 AM EDTAssociated Order(s): HIE LABORATORY RESULT This final report originated from an external system. Edits and Signatures are only valid in the legal medical record. IHIE: TSH ORDERED BY: TABBY LOAIZA ([employer]) Lab Result Units Range TSH 1.40 uIU/mL 0.30-4.20 * Don Doctor - 08/15/2017 4:01 AM EDTAssociated Order(s): HIE LABORATORY RESULT This final report originated from an external system. Edits and Signatures are only valid in the legal medical record. IHIE: Free T4 ORDERED BY: TABBY Nanoogo ([employer]) Lab Result Units Range T4 Free 1.03 ng/mL 0.70-1.50 * Doctor Don - 08/15/2017 4:01 AM EDTAssociated Order(s): HIE LABORATORY RESULT This final report originated from an external system. Edits and Signatures are only valid in the legal medical record. IHIE: Lipid Panel Standard ORDERED BY: AutoUncle ([employer]) Lab Result Units Range Cholesterol Total 154 [...] Procedure Name Priority Date/Time Associated Diagnosis Comments [facility] RAD[facility] REPORT 08/15/2017 10:55 AM EDT [facility] REPORT 08/15/2017 10:10 AM EDT [facility] LABORAT[facility] RESULT 08/15/2017 4:01 AM EDT PAE LABORATORY RESULT 08/15/2017 4:01 AM EDT [facility]IE LABORATORY RESULT 08/15/2017 4:01 AM EDT HIE LABORATORY RESULT 08/15/2017 4:01 AM EDT documented in this encounter Results * [facility] RAD[facility] REPORT (08/15/2017 10:55 AM EDT) Anatomical Region Laterality Modality Other Narrative Procedure Note Doctor Don - 08/15/2017 10:55 AM EDT This final report originated from an external system. Edits and Signatures are only valid in the legal medical record. IHIE: MRI Brain w/ + w/o Contrast ORDERED BY: TABBY LOAIZA ([facility]) [id number] Report: Radiology ([place]) Pt: MICHAEL CHESTER : 1935 MR#: [id number] Acct: [id number] Procedure: MRI Brain w/ + w/o Contrast Procedure Date: 08/15/201710:55:07 Location: [facility] Attending Physician: Ordering Physician: Tabby Loaiza EXAM: [...] On: 08/16/2017 9:58:16 AM us Doctor [employer] [id number] Final Result * HIE RADIOLOGY REPORT (08/15/2017 10:10 AM EDT) Anatomical Region Laterality Modality Other Narrative Procedure Note Doctor Don - 08/15/2017 10:10 AM EDT This final report originated from an external system. Edits and Signatures are only valid in the legal medical record. IHIE: CT Angio Head w/ + w/o Contrast ORDERED BY: TABBY LOAIZA ([facility]) [id number] Report: Radiology ([place]) Pt: MICHAEL CHESTER : 1935 MR#: [id number] Acct: [id number] Procedure: CT Angio Head w/ + w/o Contras Procedure Date: 08/15/201710:10:43 Location: [facility] Attending Physician: Ordering Physician: Tabby Loaiza EXAM: [...] M.D. On: 08/16/2017 9:33:01 AM Doctor [employer] [id number] Final Result * [facility]IE LABORATORY RESULT (08/15/2017 4:01 AM EDT) Narrative Procedure Note Automattie, Doctor - 08/15/2017 4:01 AM EDT This final report originated from an external system. Edits and Signatures are only valid in the legal medical record. IHIE: Lipid Panel Standard ORDERED BY: TABBY LOAIZA ([employer]) Lab Result Units Range Cholesterol Total 154 [...] 4.7-5.6 HIGHEST>6.9 NOTE: >5.6 Breakpoint Doctor [employer] [id number] Final Result * HIE LABORATORY RESULT (08/15/2017 4:01 AM EDT) Narrative Procedure Note Don Doctor - 08/15/2017 4:01 AM EDT This final report originated from an external system. Edits and Signatures are only valid in the legal medical record. IHIE: Free T4 ORDERED BY: TABBY Nanoogo ([employer]) Lab Result Units Range T4 Free 1.03 ng/mL 0.70-1.50 Doctor [employer] [id number] Final Result * [facility]IE LABORATORY RESULT (08/15/2017 4:01 AM EDT) Narrative Procedure Note Don Doctor - 08/15/2017 4:01 AM EDT This final report originated from an external system. Edits and Signatures are only valid in the legal medical record. IHIE: TSH ORDERED BY: TABBY Nanoogo ([employer]) Lab Result Units Range TSH 1.40 uIU/mL 0.30-4.20 Doctor [employer] [id number] Final Result * HIE LABORATORY RESULT (08/15/2017 4:01 AM EDT) Narrative Procedure Note [employer], Doctor - 08/15/2017 4:01 AM EDT This final report originated from an external system. Edits and Signatures are only valid in the legal medical record. IHIE: Vit B12 ORDERED BY: TABBY LOAIZA ([employer]) Lab Result Units Range Vitamin B12 Lvl 335 pg/mL 213-816 Doctor [employer] [id number] Final Result documented in this encounter Visit Diagnoses Not on filedocumented in this encounter Care Teams Financial Planning Consultant Relationship Specialty Start Date End Date Marv Mcclendon MD [address] [place] [phone] PCP - General Internal Medicine 10/11/11 documented as of this encounter
--- OUTSIDE RECORDS SUMMARY | 2024-04-14 17:15 | XMS_ITS | Encounter Summary ---
Author Organization Replaced By [facility] work Address [address] [facility] [place] [address] Care Team Providers Care Composite Mechanic Name Role Phone Marv Mcclendon MD Primary Care Provider + Reason for Visit * Reason Comments Medication Refill Encounter Details Date Type Department Care Team (Late st Contact Info) Description 01/25/2016 Refill [facility] [address] [place] [phone] Saira Norwood NP [address] [place] [address] [place] [phone] Medication Refill Social History Tobacco Use Types [...] benign documented in this encounter Care Teams Composite Mechanic Relationship Specialty Start Date End Date Marv Mcclendon MD [address] [place] [address] PCP - General Internal Medicine 10/11/11 documented as of this encounter
--- OUTSIDE RECORDS SUMMARY | 2024-04-14 17:15 | XMS_ITS | Encounter Summary ---
Author Organization [facility] [employer] [facility] work Address [address] [place] [address] Care Team Providers Care Mallet Cutter Name Role Phone Marv Mcclendon MD Primary Care Provider + Encounter Details Date Type Department Care Team (Late st Contact Info) Description 05/01/2010 Logician Conversion V [facility] INFO MGT [address] [place] [phone] Social History Tobacco Use Types Packs/Day Years [...] Taken Comments Blood Pressure - - Pulse 70 05/01/2010 11:19 AM EDT Temperature - - Respiratory Rate - - Oxygen Saturation - - Inhaled Oxygen Concentration - - Weight - - Height - - Body Mass Index - - documented in this encounter Plan of Treatment Not on file documented as of this encounter Visit Diagnoses Not on filedocumented in this encounter Care Teams Mallet Cutter Relationship Specialty Start Date End Date Marv Mcclendon MD [address] [place] [address] PCP - General Internal Medicine 10/11/11 documented as of this encounter
--- OUTSIDE RECORDS SUMMARY | 2024-04-14 17:15 | XMS_ITS | Encounter Summary ---
Author Organization [facility] Address [address] [place] [address] Phone Care Team Providers Care Farmworker Pullet Farm Name Role Phone Malia Mcclendon MD Primary Care Provider [phone] Aide Anguiano MD Unavailable [phone] Colby Christopher MD Unavailable [phone] Encounter Details Date Type Department Care Team (Late st Contact Info) Description 12/20/2019 [facility] [place] [address] [place] [address] Nolvia Zimmerman RPh Postmenopausal osteoporosis (Primary Dx) [...] osteoporosis documented in this encounter Care Teams Farmworker Pullet Farm Relationship Specialty Start Date End Date Malia Mcclendon MD PCP - General 10/03/10 Aide Anguiano MD [address] [place] [address] Hematology and Oncology 10/03/10 Colby Christopher MD [address] [place] [address] 10/03/10 documented as of this encounter
--- OUTSIDE RECORDS SUMMARY | 2024-04-14 17:15 | XMS_ITS | Encounter Summary ---
Author Organization [facility] [employer] [facility] work Address [address] [place] [address] Care Team Providers Care Material Combiner Name Role Phone Marv Mcclendon MD Primary Care Provider + Encounter Details Date Type Department Care Team (Late st Contact Info) Description 12/19/2009 Logician Conversion V [facility] HE[facility] INFO MGT [address] [place] [phone] Social History Tobacco Use Types Packs/Day Years [...] Taken Comments Blood Pressure - - Pulse 76 12/19/2009 11:22 AM EDT Temperature - - Respiratory Rate - - Oxygen Saturation - - Inhaled Oxygen Concentration - - Weight 99.7 kg (219 lb 11.2 oz) 010 11:22 AM EDT Height - - Body Mass Index - - documented in this encounter Plan of Treatment Not on file documented as of this encounter Visit Diagnoses Not on filedocumented in this encounter Care Teams Material Combiner Relationship Specialty Start Date End Date Marv Mcclendon MD [address] [place] [address] PCP - General Internal Medicine 10/11/11 documented as of this encounter
--- OUTSIDE RECORDS SUMMARY | 2024-04-14 17:15 | XMS_ITS | Referral Summary ---
Author Organization [facility] Address [address] [place] [address], [place] [address] Care Team Providers Care Project Construction Assistant Manager Name Role Phone Marv Mcclendon Primary Care [...] file Insurance MEDICARE PART A & B [facility] MEDICARE Care Teams Project Construction Assistant Manager Relationship Specialty Start Date End Date Marv Mcclendon [address] [facility] [address] [place] [phone] PCP - General Internal Medicine 11/05/20
--- OUTSIDE RECORDS SUMMARY | 2024-04-14 17:15 | XMS_ITS | Encounter Summary ---
Author Organization [facility] work Address [address] [facility] [place] [address] Care Team Providers Care Process Equipment Operator Name Role Phone Marv Mcclendon MD Primary Care Provider + Encounter Details Date Type Department Care Team (Late st Contact Info) Description 02/26/2014 Orders Only [facility] [address] [place] [address] Colby Christopher MD [address] [facility] [address] [place] [address] [place] (dyspnea on exertion) (Primary Dx) Social [...] abnormality documented in this encounter Care Teams Process Equipment Operator Relationship Specialty Start Date End Date Marv Mcclendon MD [address] [place] [address] PCP - General Internal Medicine 10/11/11 documented as of this encounter
--- OUTSIDE RECORDS SUMMARY | 2024-04-14 17:15 | XMS_ITS | Encounter Summary ---
Author Organization [facility] [employer] [facility] work Address [address] [place] [address] Care Team Providers Care Key Bed Installer Name Role Phone Marv Mcclendon MD Primary Care Provider + Encounter Details Date Type Department Care Team (Late st Contact Info) Description 12/18/2010 Logician Conversion V [facility] INFO MGT [address] [place] [phone] Social History Tobacco Use Types Packs/Day Years [...] on filedocumented in this encounter Care Teams Key Bed Installer Relationship Specialty Start Date End Date Marv Mcclendon MD [address] [place] [address] PCP - General Internal Medicine 10/11/11 documented as of this encounter
--- OUTSIDE RECORDS SUMMARY | 2024-04-14 17:15 | XMS_ITS | Encounter Summary ---
Author Organization [employer] work Address [address] [place] [address] [place] [address] Care Team Providers Care Polishing Machine Operator Name Role Phone Marv Mcclendon MD [...] record. IHIE: Ammonia ORDERED BY: DANGELO TORREZ ([facility]) Lab Result Units Range Ammonia 27 umol/L 18-72 * Doctor Don - 01/26/2018 6:27 PM ESTAssociated Order(s): HIE LABORATORY RESULT This final report originated from an external system. Edits and Signatures are only valid in the legal medical record. IHIE: TSH ORDERED BY: DANGELO [employer] ([facility]) Lab Result Units Range TSH 0.40 uIU/mL 0.30-4.20 * Doctor Don - 01/26/2018 6:27 PM ESTAssociated Order(s): HIE LABORATORY RESULT This final report originated from an external system. Edits and Signatures are only valid in the legal medical record. IHIE: Vit B12 ORDERED BY: DANGELO [employer] ([facility]) Lab Result Units Range Vitamin B12 Lvl [...] IHIE: Vit B12 ORDERED BY: DANGELO TORREZ ([facility]) Lab Result Units Range Vitamin B12 Lvl 385 pg/mL 213-816 Doctor [employer] [id number] Final Result * HIE LABORATORY RESULT (01/26/2018 6:27 PM EST) Narrative Procedure Note [employer] mattie - 01/26/2018 6:27 PM EST This final report originated from an external system. Edits and Signatures are only valid in the legal medical record. IHIE: TSH ORDERED BY: DANGELO TORREZ ([facility]) Lab Result Units Range TSH 0.40 uIU/mL 0.30-4.20 us Doctor [employer] [id number] Final Result * HIE LABORATORY RESULT (01/26/2018 6:27 PM EST) Narrative Procedure Note Doctor Don - 01/26/2018 6:27 PM EST This final report originated from an external system. Edits and Signatures are only valid in the legal medical record. IHIE: Ammonia ORDERED BY: DANGELO TORREZ ([facility]) Lab Result Units Range Ammonia 27 umol/L 18-72 us Doctor [employer] [id number] Final Result documented in this encounter Visit Diagnoses Not on filedocumented in this encounter Care Teams Polishing Machine Operator Relationship Specialty Start Date End Date Marv Mcclendon MD [address] [address] PCP - General Internal Medicine 10/11/11 documented as of this encounter
--- OUTSIDE RECORDS SUMMARY | 2024-04-14 17:15 | XMS_ITS | Clinical Summary ---
Author Organization [facility] Address [address] [place] [address], [place] [address] Care Team Providers Care Granulator Machine Operator Name Role Phone Marv Mcclendon Primary Care [...] & B [employer] MEDICARE Care Teams Granulator Machine Operator Relationship Specialty Start Date End Date Marv Mcclendon [address] [facility] [address] [place] [address] PCP - General Internal Medicine 11/05/20
--- OUTSIDE RECORDS SUMMARY | 2024-04-14 17:15 | XMS_ITS | Clinical Summary ---
Author Organization [email or web address] work Address [address] [place] [address] [place] [address] Care Team Providers Care Zoogler Name Role Phone Marv Mcclendon MD Primary Care Provider + Allergies No known active allergies Medications pravastatin (PRAVACHOL) 40 MG tablet Take 1 tablet by mouth daily. 5 08/27/2014 Active cranberry extract 500 mg Tab Take 1 tablet by mouth Daily after dinner. 02/19/2018 Active tolterodine (DETROL LA) 4 MG 24 hr capsule Take 4 mg by mouth daily. Active omega 5-dfl-koj-fish oil (FISH OIL) 1,000 mg (120 mg-180 [...] Screen 02/16/2024 Medical Devices Implanted Type Area Foundation Director Device Identifier Shelf Expiration Date Model / Serial / Lot Lens Toric Iq 22.0 Iol (88416) - [id number] Implanted:Qty: 1 on 10/20/2011 by Filipe Monique MD at [facility] 01/16/2016 / [id number] / Implant Inj 1ml Syr Coaptite ([id number]) - [id number] Implanted:Qty: 1 on 05/04/2017 [facility] N/A: Urethra [facility] [id number] 06/18/2019 [id number] / / [id number] Procedures Procedure Name Priority Date/Time Associated Diagnosis [...] the Diabetes Care, the Journal of the [place] [employer]. Care must be taken when interpreting Hemoglobin A1C results from patients with hemoglobin variants/abnormalities. Falsely elevated or decreased results may occur. Estimated Average Glucose 120 MG/DL (CALC) MACL Comment: Test Performed at: [facility] [employer] [address] [place] [address] [place] [address] CROW MUNOZ MD Blood specimen (specimen) 02/13/2018 1:30 PM EST 02/13/2018 10:13 PM EST Narrative Resulting Agency Comment Performing Organization Information: Site ID: [id number] Name: Address: , Director: us Not On Staff LAB BLOOD ORDERABLES Final Resul t MACL [address] from Last 3 Months or Most Recently Relevant to Health Maintenance Insurance MEDICARE PART A AND B [employer] MEDICARE PART A AND B FOR LIFE MEDICARE PART A AND B HOSPITAL Mal[facility] Rolling Address: [address] [place] [id number] FOR LIFE MEDICARE PART A AND B FOR LIFE Advance Directives For more information, please contact: [phone] x2 * Full Code (Latest Code Status on File) Date Activated Date Inactivated Comments 01/28/2018 10:50 PM 02/08/2018 1:23 PM Care Teams Zoogler Relationship Specialty Start Date End Date Marv Mcclnedon MD [address] [facility] [address] [place] [phone] PCP - General Internal Medicine 10/11/11
--- OUTSIDE RECORDS SUMMARY | 2024-04-14 17:15 | XMS_ITS | Encounter Summary ---
Author Organization [facility] [employer] [facility] work Address [address] [place] [address] Care Team Providers Care Underground Heavy Equipment Operator Name Role Phone Marv Mcclendon MD Primary Care Provider + Encounter Details Date Type Department Care Team (Late st Contact Info) Description 01/30/2010 Logician Conversion V [facility] HEALTH INFO MGT [address] [place] [phone] Social History Tobacco Use Types Packs/Day Years [...] on filedocumented in this encounter Care Teams Underground Heavy Equipment Operator Relationship Specialty Start Date End Date Marv Mcclendon MD [address] [place] [address] PCP - General Internal Medicine 10/11/11 documented as of this encounter
[2024-04-14 18:00] VITALS: BP 192/87
[2024-04-14] MEDS: BUPIVACAINE 0.25% 30 ML INJECTION (18:26)
== END 2024-04-14 18:26 | disposition home or self-care (01) ==
PROVIDERS: Emergency Provider Emergency Medicine; PCP Internal Medicine
DX: S01.111A Laceration without foreign body of right eyelid and periocular area, initial encounter (principal); S61.212A Laceration without foreign body of right middle finger without damage to nail, initial encounter; W01.0XXA Fall on same level from slipping, tripping and stumbling without subsequent striking against object, initial encounter
CPT/HCPCS: 12001; 70450; 73140; 99284; J0665

== ENCOUNTER 2024-09-26 12:51 | Emergency (ER) | payer MEDICARE, OTHER, SELFPAY ==
--- NOTE | 2024-09-26 12:54 | ED.GENADULT ---
HPI - General Adult General Date Seen: 09/26/24 Chief complaint: Fall/Minor Trauma Stated complaint: fall Time Seen by Provider: 09/26/24 12:53 History of Present Illness HPI narrative: 89 yo F with a h/o of HTN, hyperlipidemia, and a history of poor balance ( I saw her in Mar for a fall). She is not anticoagulated. She presents to the ER today for right arm pain. She had a trip and near fall yesterday. She reached out and used her right hand against the wall to stop her from actually falling all the way to the floor. She says she ?punched? the wall but does not have any pain in her ankles or abrasions on her hand. This sounds like this was a fall onto her outstretched hand. She has been having pain from her wrist all the way up to her shoulder of her arm. Difficult for to really localize it but it seems to be the worst right at the proximal forearm/radial head area of the. Does not hurt if she hold her arm still but does hurt a lot when she moves it. She notes that she has pain with pronation and supination of her forearm, flexion of her elbow. When the pain is severe it radiates all the way up to her shoulder. No associated numbness or weakness in her hand. No pain in her collarbone. No abrasions or bruising. She did not hit her head. No other injuries from this incident Related Data Home Medications ?Medication ?Instructions ?Recorded ?Confirmed aspirin 81 mg chewable tablet 81 mg PO QDAY 02/22/24 09/26/24 cholecalciferol (vitamin D3) 25 25 mcg PO QDAY 02/22/24 09/26/24 mcg (1,000 unit) capsule acetaminophen 325 mg tablet 325 mg PO Q4-8H PRN 06/21/24 09/26/24 (Tylenol) Previous Rx's ?Medication ?Instructions ?Recorded carvedilol 6.25 mg tablet 6.25 mg PO BID #180 tabs 04/06/24 pravastatin 40 mg tablet 40 mg PO QDAY #90 tabs 04/06/24 sertraline 100 mg tablet (Zoloft) 100 mg PO QDAY #90 tabs 08/25/24 naproxen 500 mg tablet (Naprosyn) 500 mg PO BID #30 tabs 09/05/24 Allergies Allergy/AdvReac Type Severity Reaction Status Date / Time No Known Drug Allergies Allergy Verified 09/08/24 09:46 [facility] Medical History (Updated 09/26/24 @ 15:31 by Oral Perez MD) Cataract ?H26.9 - Unspecified cataract (ICD-10) Urinary incontinence ?R32 - Unspecified urinary incontinence (ICD-10) Joint pain ?M25.50 - Pain in unspecified joint (ICD-10) Trouble walking ?R26.2 - Difficulty in walking, not elsewhere classified (ICD-10) Hypertension ?I10 - Essential (primary) hypertension (ICD-10) Hyperlipidemia ?E78.5 - Hyperlipidemia, unspecified (ICD-10) Depression ?F32.A - Depression, unspecified (ICD-10) Urinary frequency ?R35.0 - Frequency of micturition (ICD-10) Surgical History (Updated 08/14/24 @ 16:24 by Estrella Rice) History of tonsillectomy ?Z90.89 - Acquired absence of other organs (ICD-10) H/O bilateral mastectomy ?Z90.13 - Acquired absence of bilateral breasts and nipples (ICD-10) Family History (Updated 08/14/24 @ 16:24 by Estrella Faulkner) Other Family history unknown Social History (Updated 06/21/24 @ 16:19 by Norma Campos ~ [facility]) What is your current living situation?: declined to answer Problems where you live: declined to answer In the past 12 months, utilities in danger of being shut off: declined to answer In past 12 months, lack of transportation kept you from medical appts, meetings, work, or getting things needed for daily living: unable to answer How hard is it for you to pay for the very basics like food, housing, medical care, and heating: not very hard In the past 12 mos, have been you worried that your food would run out before you had money to buy more?: declined to answer In the past 12 mos, the food you bought just didn't last and you didn't have money to buy more?: declined to answer Smoking Status: Never smoker Do you use any of these nicotine containing products: None Second hand tobacco smoke exposure: No How often do you have a drink containing alcohol: 4 or more times a week AUDIT-C Alcohol total score: 4 Non-prescribed substance use: denies use How often does anyone, including family, friends and others, physically hurt you: decline to answer How often does anyone, including family, friends and others, insult or talk down to you: decline to answer How often does anyone, including family, friends and others, threaten you with harm: decline to answer How often does anyone, including family, friends and others, scream or curse at you: decline to answer Health Related Social Needs: unsheltered homelessness (Z59.02) Exam Narrative: Exam Narrative: Constitutional: Appears well-developed and well-nourished. Active. Non-toxic appearing. Polite. She recalls me from previous ER visit about 6 months ago HENT: Head: Atraumatic. No signs of injury. Nose: No nasal discharge. Mouth/Throat: Mucous membranes are moist. Pharynx is normal. Tonsils symmetric. Uvula midline. Airway patent. Eyes: Conjunctivae normal and EOM are normal. Pupils are equal, round, and reactive to light. Right eye exhibits no discharge. Left eye exhibits no discharge. No icterus. Neck: Normal range of motion. Neck supple. No adenopathy. No stridor. Cardiovascular: Regular rate and rhythm. Brisk cap refill. Strong radial pulse. Pulmonary/Chest: Effort normal. No stridor. No respiratory distress. Musculoskeletal: Uninjured except for right upper extremity. Right upper extremity: Clavicle nontender. No crepitus. Proximal humerus is nontender. No deformity. She is able to flex her elbow up to about 90? and abduct to about 90?. Palpation of the humeral shaft, biceps, triceps is nontender. No deformity. No swelling. There is perhaps subtle swelling on the anterior elbow but she says she has a ?cyst? there is been there chronically. She is tender over the anterior elbow and proximal radius/radial head. No tenderness over the olecranon, medial epicondyle, lateral epicondyle. She is also tender over the midshaft ulna. She is able to fully extend her elbow and flex it beyond 90?, but does have pain with flexion. She also notes pain and grimaces when she tries to supinate her forearm. Distal radius and ulna are nontender. Wrist is nontender. Normal flexion and extension of the wrist. Thumb, fingers, body of the hand nontender. Intact radial, median, ulnar sensory function. Brisk distal cap refill. Normal display fabricator strength. She has a bracelet on her right wrist which I helped her removed and move to her left wrist Left upper extremity in both lower extremities are uninjured- Normal range of motion. No edema. No tenderness. No deformity. Neurological: Alert. Normal strength. No cranial nerve deficit or sensory deficit. Coordination normal. GCS eye subscore is 4. GCS verbal subscore is 5. GCS motor subscore is 6. Skin: Skin is warm. No rash noted. Const: Vital Signs, click to edit/add: Vital Signs - 24 hr 09/26/24 12:55 Temperature 98.7 F Pulse Rate [Pulse Oximeter] 84 Respiratory Rate 16 Blood Pressure [Ri ght Upper Arm] 159/83 H Pulse Oximetry 94 Oxygen Delivery Me thod Room Air Course Course ED Course: Seen and examined in ER bed 1. Patient already taken Addison prior to arrival. She politely declines offered pain medications at this time. Vital Signs Vital signs: Initial Vital Signs Temperature 98.7 F 09/26/24 12:55 Temperature Source Temporal Artery Scan 09/26/24 12:55 Pulse Rate 84 09/26/24 12:55 Respiratory Rate 16 09/26/24 12:55 Blood Pressure 159/83 H 09/26/24 12:55 Blood Pressure Mean 108 H 09/26/24 12:55 Blood Pressure Position Sitting 09/26/24 12:55 Pulse Oximetry 94 09/26/24 12:55 Oxygen Delivery Method Room Air 09/26/24 12:55 Vital Signs Temperature 98.7 F 09/26/24 12:55 Pulse Rate 84 09/26/24 12:55 Respiratory Rate 16 09/26/24 12:55 Blood Pressure 159/83 H 09/26/24 12:55 Pulse Oximetry 94 09/26/24 12:55 Oxygen Delivery Method Room Air 09/26/24 12:55 Temperature 98.7 F 09/26/24 12:55 Pulse Rate 84 09/26/24 12:55 Respiratory Rate 16 09/26/24 12:55 Blood Pressure 159/83 H 09/26/24 12:55 Pulse Oximetry 94 09/26/24 12:55 Oxygen Delivery Method Room Air 09/26/24 12:55 Medical Decision Making MDM Narrative Medical decision making narrative: Very pleasant 89-year-old lady presenting to the ER today with right arm pain after she had a trip and fall yesterday and caught herself with a FOOSH mechanism to her right hand. She is endorsing arm pain from the wrist all the way to the shoulder but really her pain seems to localize to the elbow and in the area of the proximal humerus. X-rays of the patient's forearm and elbow are obtained. They show no definite acute fracture but they do show a couple of loose bodies in the elbow joint. Based on my clinical exam I am suspicious that she may have an occult radial head fracture. She is otherwise neurovascularly intact in the arm. No evidence for any glenohumeral joint dislocation, humerus fracture. No evidence for a neck injury or a cervical radiculopathy. No sign of compartment syndrome, acute limb ischemia, infection, or other nontraumatic cause for her arm pain. She took Addison prior to arrival and pain is now tolerable for her and she has pretty good range of motion. She has an adequate supply of pain medications at home and does not need a today Although x-rays are negative, I am suspicious for a radial head fracture. Typically would manage this with immobilization or at least sling. However with the patient's baseline balance, we think that a sling would probably put her at risk for more falls. Therefore will not immobilize her arm. She will restrict her own movement and stick to light duty with that right arm. Would recommend close outpatient follow-up with [facility] within 5-7 days for recheck. Imaging Data XR Right elbow: Attestation: I have reviewed the pertinent imaging results. Radiologist's impression: Findings/Impression: No acute fracture or dislocation. No elbow joint effusion or localized soft tissue swelling. Few loose bodies at the lateral humeral condyle. Vascular calcification is suspected. Olecranon enthesophyte. XR Right forearm: Attestation: I have reviewed the pertinent imaging results. Radiologist's impression: Impression: No sign of acute injury. Discharge Plan Discharge Clinical Impression: Elbow pain, right Patient Disposition: Home, Self-Care Condition: Stable Instructions: Elbow Fracture (ED), Arm Pain (ED) Additional Instructions: As we discussed, your x-rays do not show any sign of broken bones the day. However, I am concerned that you probably have a hairline fracture through 1 of the bones had your elbow (a fracture through the radial head). Sometimes his injury is not visible on x-rays. It is very important for you to follow-up with the orthopedic clinic within 5-7 days for recheck. To arrange your ER follow-up visit with the [facility] call [phone] For pain you can use Tylenol or your prescription pain killer as needed. You can use ice for 20 minutes every 2-3 hours. Try to keep you are resting and elevated to the level of your heart. As we discussed, If you have worsening pain or any problems, please come back to the ER right away. Prescriptions: No Action naproxen [Naprosyn] 500 mg tablet 500 mg PO BID Qty: 30 0RF aspirin 81 mg tablet,chewable 81 mg PO QDAY cholecalciferol (vitamin D3) 25 mcg (1,000 unit) capsule 25 mcg PO QDAY acetaminophen [Tylenol] 325 mg tablet 325 mg PO Q4-8H PRN carvedilol 6.25 mg tablet 6.25 mg PO BID Qty: 180 3RF Rx Instructions: must administer with a meal/food pravastatin 40 mg tablet 40 mg PO QDAY Qty: 90 3RF sertraline [Zoloft] 100 mg tablet 100 mg PO QDAY Qty: 90 1RF Follow Up/Referrals: Yovani Salgado MD [Primary Care Provider, Internal Medicine] Stand Alone Forms: [employer] Info Instructions
--- OUTSIDE RECORDS SUMMARY | 2024-09-26 12:54 | XMS_ITS | Encounter Summary ---
Author Organization [facility] Address [address] [place] [address] Phone Care Team Providers Care Health Care Marketing Manager Name Role Phone Malia Mcclendon MD Primary Care Provider [phone] Aide Anguiano MD Unavailable [phone] Colby Christopher MD Unavailable [phone] Encounter Details Date Type Department Care Team (Late st Contact Info) Description 12/20/2019 Orders Only [place] [address] [place] [address] Nolvia Zimmerman RPh Postmenopausal osteoporosis (Primary Dx) [...] osteoporosis documented in this encounter Care Teams Health Care Marketing Manager Relationship Specialty Start Date End Date Malia Mcclendon MD PCP - General 10/03/10 Aide Anguiano MD [address] [place] [address] Hematology and Oncology 10/03/10 Colby Christopher MD [address] [place] [address] 10/03/10 documented as of this encounter
--- OUTSIDE RECORDS SUMMARY | 2024-09-26 12:54 | XMS_ITS | Clinical Summary ---
Author Organization [facility] Address [address] [place] [address] Care Team Providers Care Care Partner Name Role Phone Malia Mcclendon MD Primary Care Provider [phone] Aide Anguiano MD Unavailable [phone] Colby Christopher MD Unavailable [phone] Allergies No known active allergies Medications pravastatin (PRAVACHOL) 40 mg tablet Take 40 mg by mouth nightly Active carvedilol (COREG) 6.25 mg tablet Take 6.25 mg by mouth 2 (two) times daily with meals. Active tolterodine (DETROL LA) 4 mg ER capsule Take 4 mg by mouth daily Active CRANBERRY FRUIT EXTRACT (CRANBERRY EXTRACT, BULK,) by Does not apply route daily Active Lwjit-4-JPV-EPA -Fish Oil (FISH OIL) 1,000 mg (120 [...] Active Problems Problem Noted Date Diagnosed Date Primary hyperparathyroidism 05/05/2018 Right thyroid nodule 05/05/2018 Osteopenia of hip 05/05/2018 Essential hypertension 05/05/2018 Postmenopausal osteoporosis 04/16/2016 History of invasive breast cancer 10/02/2010 Cancer Staging:Clinical stage from 03/18/2008:Stage IA(T1c, N0, M0) - Signed by Nate Olivarez MD on 04/16/2016 Assessment & Plan (10/02/2010 12:12 PM EDT): 2007 Hypercalcemia 10/02/2010 Nodular goiter 10/02/2010 Resolved Problems Problem Noted Date Diagnosed Date Resolved Date Status post parathyroidectomy 07/03/2019 09/09/2024 Family History Medical History Relation Name Comments Cancer Natural brother 1X Hx prostate cancer Clotting Disorder Natural brother 1X Pacemaker Natural brother 1X Cancer Natural sister 2X Hx breast can cer Skin Cancer Natural sister 2X No Known Problems Natural son 3X Relation Name Status Comments Maternal grandfather Maternal grandmother Natural brother 1X Alive Natural father (Age 97) Age Natural mother (Age 77) Defibril ation Natural sister 2X Alive Natural son 3X Alive Paternal grandfather Paternal grandmother Social History Tobacco Use Types Packs/Day Years [...] 12/27/2021 12/27/2020, 01/03/2020, 06/29/2019, Additional history exists COVID-19 Vaccine (1 - 2023-2 5 season) 2023 Influenza Vaccination (#1) 2024 Lab-Lipid Screening 08/30/2025 08/30/2020, 9 Procedures Procedure Name Priority Date/Time Associated Diagnosis Comments COMPREHENSIVE METABOLIC PANEL Routine 12/27/2020 1:46 PM EST Postmenopausal osteoporosis LIPID PROFILE WITH REFLEX TO LDL, DIRECT Routine 11/11/2018 11:11 AM EDT from Last 3 Months or Most Recently Relevant to Health Maintenance Results * (ABNORMAL) COMPREHENSIVE METABOLIC PANEL (12/27/2020 1:46 PM EST) GLUCOSE 122(H) 70 - 99 mg/dL [facility] BUN 21 7 - 25 mg/dL [facility] CREATININE 0.8 0.6 - 1.2 mg/dL [facility] SODIUM 136 133 - 144 meq/L [facility] POTASSIUM 3.7 3.5 - 5.2 meq/L [facility] CHLORIDE 99 98 - 107 meq/L [facility] CARBON DIOXIDE 30.0 21.0 - 31.0 meq/L [facility] CALCIUM 9.8 8.6 - 10.3 mg/dL [facility] ALBUMIN 4.2 3.5 - 5.7 g/dL [facility] PROTEIN, TOTAL 7.1 6.4 - 8.9 g/dL [facility] ALKALINE PHOSPHATASE (ALP) 52 34 - 104 U/L [facility] AST (SGOT) 16 13 - 39 U/L [facility] ALT (SGPT) 15 7 - 52 U/L [facility] BILIRUBIN TOTAL 0.8 0.3 - 1.0 mg/dL [facility] ANION GAP 7.0 6.2 - 14.7 meq/L [facility] Plasma Venipuncture / Unknown 12/27/2020 1:46 PM EST 12/27/2020 1:58 PM EST Nate Olivarez MD LAB BLOOD ORDERABLES Final R esult [facility] * LIPID PANEL (11/11/2018 11:11 AM [...] Documents on File Type Date Recorded Patient Air Battle Manager Expl anation Advanced Directives 07/05/2019 4:12 PM Advanced Directives 07/05/2019 7:39 AM Power of Fretted Instruments Inspector 02/19/2015 9:52 AM Neeru scan, Living will Power of Fretted Instruments Inspector 02/19/2015 9:52 AM Neeru scan, Living will pg 2 * Full Code (Latest Code Status on File) Date Activated Date Inactivated Comments 07/03/2019 2:46 PM 07/04/2019 5:25 PM A code statu s order for Full Code means all appropriate CPR measures as defined in Code Status policy will be initiated in the event of cardiac and/or pulmonary arrest. Care Teams Care Partner Relationship Specialty Start Date End Date Malia Mcclendon MD PCP - General 10/03/10 Aide Anguiano MD [address] [place] [address] Hematology and Oncology 10/03/10 Colby Christopher MD [address] [place] [address] 10/03/10
--- OUTSIDE RECORDS SUMMARY | 2024-09-26 12:54 | XMS_ITS | Clinical Summary ---
Author Organization [facility] Address [address] [place] [address] Care Team Providers Care [employer] Multimedia Sales Name Role Phone Marv Mcclendon Primary Care [...] Date Last Done Comments Dexa Scan 1937 Depression Screening 1949 RSV 60+ years or (1 - 1-dose 75+ series) 2012 COVID-19 Vaccine ( season) 2023 02/25/2021, 04/12/2020, 03/15/2020 Influenza Vaccine (#1) 2024 , 12/06/2019, 12/26/2018, Additional history exists DTaP,Tdap,and Td Vaccines (2 - Td or Tdap) 07/20/2028 07/20/2018 Zoster Vaccines Completed 09/16/2017, 06/14/2017 Pneumococcal Vaccine: 50+ Years Completed 06/17/2018, 06/14/2017 Meningococcal B Vaccine Aged Out No l onger eligible based on patient's age to complete this topic Insurance MEDICARE PART A & B [facility] MEDIC[facility] Care Teams [employer]p [employer] Mult[employer] Sales Relationship Specialty Start Date End Date Marv Mcclendon [address] [address] [facility] [address] [place] [address] PCP - General Internal Medicine 11/05/20
[2024-09-26 12:55] VITALS: BP 159/83; PULSE 84; RESP 16; TEMP 37.1; O2SAT 94; BMI 32.4
--- NOTE | 2024-09-26 13:18 | CRLHL7_ITS ---
For Patients: As a result of the Cures Act, medical imaging exams and procedure reports are released immediately into your electronic medical record. You may view this report before your referring provider. If you have questions, please contact your health care provider. Indication: Elbow pain Technique: Right elbow 3 views Comparison: None Findings/Impression: No acute fracture or dislocation. No elbow joint effusion or localized soft tissue swelling. Few loose bodies at the lateral humeral condyle. Vascular calcification is suspected. Olecranon enthesophyte. Dictated by Cintia Bolivar MD @ 09/26/2024 1:59:20 PM (Electronically Signed)
--- NOTE | 2024-09-26 13:18 | CRLHL7_ITS ---
For Patients: As a result of the Cures Act, medical imaging exams and procedure reports are released immediately into your electronic medical record. You may view this report before your referring provider. If you have questions, please contact your health care provider. Indication: FOOSH, elbow and forearm pain. Technique: Right forearm, 2 views. Comparison: None. Findings: Bones: Alignment is normal. No fractures.. Osseous irregularity at the proximal diaphysis of the radius with benign features. This may be related to prior trauma. Consider correlation with prior imaging if available. Joint spaces: Moderate to severe degenerative changes of the wrist.. Soft tissues: Unremarkable. Impression: No sign of acute injury. Dictated by Mike Phelps MD @ 09/26/2024 2:05:30 PM (Electronically Signed)
== END 2024-09-26 15:46 | disposition home or self-care (01) ==
PROVIDERS: Emergency Provider Emergency Medicine; PCP Internal Medicine
DX: M25.521 Pain in right elbow (principal)
CPT/HCPCS: 73080; 73090; 99282; 99283

== ENCOUNTER 2024-11-07 09:50 | Outpatient (CLI) | payer MEDICARE, OTHER, SELFPAY | END 2024-11-07 09:51 | disposition home or self-care (01) | LOC: AMB 11-08 12:07 | PROVIDERS: PCP Internal Medicine; Visit Provider Emergency Medicine | DX: R41.82 Altered mental status, unspecified (principal); R47.81 Slurred speech | CPT/HCPCS: A0425; A0427 ==

== ENCOUNTER 2024-11-07 10:16 | Emergency (ER) | payer MEDICARE, OTHER, SELFPAY ==
--- OUTSIDE RECORDS SUMMARY | 2023-12-18 04:00 | XMS_ITS ---
Author Organization [facility] Address [address] [place] [address] Care Team Providers Care Block Trimmer Name Role Phone Migration, Provider Unavailable Unavailable REASON FOR VISIT EMR-Rodrigue Encounters Encounter Location Date Provider Diagnosis Vascular [facility] [address] [facility] [place] [address] 12/18/2023 Provider Migration Plan Of Treatment Medication [...] * MICHAEL CHESTER HDOB:[birth year] (89 yo F)Acc No.[id number]:12/18/2023 Patient: AALIYAH MARIOINE Navi :1935 A ge:88 Y S ex:Female Address:[address] [facility] [place], [place] [address] * Refills Stop Multiple Vitamin Tablet, Oral, [...]
--- OUTSIDE RECORDS SUMMARY | 2023-12-19 04:00 | XMS_ITS ---
Author Organization [facility] Address [address] [place] [address] Care Team Providers Care Pensionholder Information Clerk Name Role Phone Migration, Provider Unavailable Unavailable Allergies No Known Allergies REASON FOR VISIT EMR-Rodrigue Encounters Encounter Location Date Provider Diagnosis [facility] [address] [place] [address] 12/19/2023 Provider Migration Plan Of Treatment No Information Progress Notes * MICHAEL CHESTER HDOB:[birth year] (89 yo F)Acc No.[id number]:12/19/2023 Patient: GISELL MARIOKIMANI Mcelroy :1935 A ge:88 Y S ex:Female Address:[address] [facility] [place], [address] Subjective: * Chief Complaints: * E MR-Rodrigue * Allergies: N .K.D.A. * * Date:
[2024-11-07] VITALS (9 sets, daily range): BP systolic 127–154; BP diastolic 68–85; PULSE 58–76; RESP 11–27; O2SAT 89–99; BMI 32.1
--- OUTSIDE RECORDS SUMMARY | 2024-11-07 10:19 | XMS_ITS | Encounter Summary ---
Author Organization [employer] work Address [address] [place] [address] [place] [address] Care Team Providers Care Hospice Administrator Name Role Phone Marv Mcclendon MD Primary [...] record. IHIE: Ammonia ORDERED BY: DANGELO TORREZ ([employer]) Lab Result Units Range Ammonia 27 umol/L 18-72 * Doctor Don - 01/26/2018 6:27 PM ESTAssociated Order(s): HIE LABORATORY RESULT This final report originated from an external system. Edits and Signatures are only valid in the legal medical record. IHIE: TSH ORDERED BY: DANGELO [employer] ([employer]) Lab Result Units Range TSH 0.40 uIU/mL 0.30-4.20 * Doctor Don - 01/26/2018 6:27 PM ESTAssociated Order(s): HIE LABORATORY RESULT This final report originated from an external system. Edits and Signatures are only valid in the legal medical record. IHIE: Vit B12 ORDERED BY: DANGELO [employer] ([employer]) Lab Result Units Range Vitamin B12 Lvl [...] IHIE: Vit B12 ORDERED BY: DANGELO TORREZ ([employer]) Lab Result Units Range Vitamin B12 Lvl 385 pg/mL 213-816 Doctor [employer] [id number] Final Result * HIE LABORATORY RESULT (01/26/2018 6:27 PM EST) Narrative Procedure Note [employer] mattie - 01/26/2018 6:27 PM EST This final report originated from an external system. Edits and Signatures are only valid in the legal medical record. IHIE: TSH ORDERED BY: DANGELO TORREZ ([employer]) Lab Result Units Range TSH 0.40 uIU/mL 0.30-4.20 us Doctor [employer] [id number] Final Result * HIE LABORATORY RESULT (01/26/2018 6:27 PM EST) Narrative Procedure Note Doctor Don - 01/26/2018 6:27 PM EST This final report originated from an external system. Edits and Signatures are only valid in the legal medical record. IHIE: Ammonia ORDERED BY: DANGELO TORREZ ([employer]) Lab Result Units Range Ammonia 27 umol/L 18-72 us Doctor [employer] [id number] Final Result documented in this encounter Visit Diagnoses Not on filedocumented in this encounter Care Teams Hospice Administrator Relationship Specialty Start Date End Date Marv Mcclendon MD [address] [address] PCP - General Internal Medicine 10/11/11 documented as of this encounter
--- OUTSIDE RECORDS SUMMARY | 2024-11-07 10:19 | XMS_ITS | Encounter Summary ---
Author Organization [facility] [employer] [facility] work Address [address] [place] [address] Care Team Providers Care Hide Dyer Name Role Phone Marv Mcclendon MD Primary Care Provider + Encounter Details Date Type Department Care Team (Late st Contact Info) Description 01/30/2010 Logician Conversion V [facility] HEALTH INFO MGT [address] [phone] Social History Tobacco Use Types Packs/Day Years [...] on filedocumented in this encounter Care Teams Hide Dyer Relationship Specialty Start Date End Date Marv Mcclendon MD [address] [place] [address] PCP - General Internal Medicine 10/11/11 documented as of this encounter
--- OUTSIDE RECORDS SUMMARY | 2024-11-07 10:19 | XMS_ITS | Encounter Summary ---
Author Organization [facility] [employer] [facility] work Address [address] [place] [address] Care Team Providers Care Shipping Room Supervisor Name Role Phone Marv Mcclendon MD Primary Care Provider + Encounter Details Date Type Department Care Team (Late st Contact Info) Description 06/25/2010 Logician Conversion V [facility] INFO MGT [address] [phone] Social History Tobacco Use Types Packs/Day Years [...] on filedocumented in this encounter Care Teams Shipping Room Supervisor Relationship Specialty Start Date End Date Marv Mcclendon MD [address] [place] [address] PCP - General Internal Medicine 10/11/11 documented as of this encounter
--- OUTSIDE RECORDS SUMMARY | 2024-11-07 10:19 | XMS_ITS | Encounter Summary ---
Author Organization [facility] [employer] [facility] work Address [address] [place] [address] Care Team Providers Care Architect Naval Name Role Phone Marv Mcclendon MD Primary Care Provider + Encounter Details Date Type Department Care Team (Late st Contact Info) Description 12/19/2009 Logician Conversion V [facility] HEALTH INFO MGT [address] [phone] Social History Tobacco Use Types Packs/Day Years [...] on filedocumented in this encounter Care Teams Architect Naval Relationship Specialty Start Date End Date Marv Mcclendon MD [address] [place] [address] PCP - General Internal Medicine 10/11/11 documented as of this encounter
--- OUTSIDE RECORDS SUMMARY | 2024-11-07 10:19 | XMS_ITS | Patient Health Record ---
Author Organization [facility] Address [address] [place] [address] Care Team Providers Care Computer Applications Developer Name Role Phone Migration, Provider Unavailable Unavailable Allergies No Known Allergies Reason For Referral No Information Encounters Encounter Location Date Provider Diagnosis [facility] [address] [place] [address] 12/18/2023 Provider Migration [facility] [address] [place] [address] 12/19/2023 Provider Migration Plan Of Treatment No Information Insurance Providers Payer Name Payer Address Payer Phone Subscriber Number Group Number Insured Name Patient Relationship to Insured Coverage Start Date Coverage End Date [place] Medicare Part [place] J8 [address] [place] [address] [id number] MICHAEL CHESTER Self - patient is the insured 3 for Life [address] [place] [id number] IMANI CHESTER Spouse - patient is the spouse of the insured
--- OUTSIDE RECORDS SUMMARY | 2024-11-07 10:19 | XMS_ITS | Encounter Summary ---
Author Organization [facility] Address [address] [place] [address] Phone Care Team Providers Care Bulk Clerk Name Role Phone Malia Mcclendon MD Primary Care Provider [phone] Aide Anguiano MD Unavailable [phone] Colby Christopher MD Unavailable [phone] Encounter Details Date Type Department Care Team (Late st Contact Info) Description 12/20/2019 Orders Only [facility] [place] [address] [place] [address] Nolvia Zimmerman RPh Postmenopausal osteoporosis (Primary Dx) [...] osteoporosis documented in this encounter Care Teams Bulk Clerk Relationship Specialty Start Date End Date Malia Mcclendon MD PCP - General 10/03/10 Aide Anguiano MD [address] [place] [address] Hematology and Oncology 10/03/10 Colby Christopher MD [address] [place] [place] [address] 10/03/10 documented as of this encounter
--- OUTSIDE RECORDS SUMMARY | 2024-11-07 10:19 | XMS_ITS | Clinical Summary ---
Author Organization [facility] Address [address] [place] [address], [place] [address] Care Team Providers Care Director Specialty Name Role Phone Marv Mcclendon Primary Care [...] Comments Dexa Scan 1937 Depression Screening 1947 Medicare Initial AWV [id number] 05/17/2003 RSV 60+ years or (1 - 1-dose 75+ series) 2012 COVID-19 Vaccine ( season) 2024 02/25/2021, 04/12/2020, 03/15/2020 Influenza Vaccine (#1) 2024 , 12/26/2018, 12/15/2016, Additional history exists DTaP,Tdap,and Td Vaccines (2 - Td or Tdap) 07/20/2028 07/20/2018 Zoster Vaccines Completed 09/16/2017, 06/14/2017 Pneumococcal Vaccine: 50+ Years Completed 06/17/2018, 06/14/2017 Meningococcal B Vaccine Aged Out No l onger eligible based on patient's age to complete this topic Insurance MEDICARE PART A & B [facility] MEDICARE Care Teams Director Specialty Relationship Specialty Start Date End Date Marv Mcclendon [address] [place] [address] PCP - General Internal Medicine 11/05/20
--- OUTSIDE RECORDS SUMMARY | 2024-11-07 10:19 | XMS_ITS | Clinical Summary ---
Author Organization [facility] Address [address] [place] [address] Care Team Providers Care Seo Assistant Name Role Phone Yovani Salgado MD Primary Care Provider Encounters Date Type Department Care Team Description 10/27/2024 10:30 AM CDT Office Visit [facility] [address] [place] [address] Jerrod Rodriguez, AuD Hearing Aid 10/27/2024 Telephone [facility] [address] [place] [address] Jerrod Rodriguez AuD Follow Up (Hearing aids) 10/26/2024 Travel 10/18/2024 Telephone [facility] [address] [place] [address] Jerrod Rodriguez, AuD Hearing Aid 09/29/2024 2:30 PM CDT Office Visit [address] [address] Jerrod Rodriguez AuD Hearing Aid (Consultation) 09/29/2024 1:30 PM CDT Office Visit [address] [address] Jerrod Rodriguez, AuD Hearing Problem 09/29/2024 Travel from Last 3 Months Social History Tobacco Use Types Packs/Day Years Used Date Smoking Tobacco: Never Assessed Comments Unknown Sex and Gender Information Value Date Recorded Sex Assigned at Not on file Legal Sex Female 12:46 PM CDT Gender Identity Not on file Sexual Orientation Not on file Plan of Treatment Upcoming Encounters Date Type Department Care Team (Late st Contact Info) Description 11/17/2024 10:30 AM CDT Office Visit [facility] [address] [place] [address] Jerrod Rodriguez AuD [address] [place] [id number] Health Maintenance Due Date Last Done Comments Tetanus booster 1946 Depression screening for age 12+ 1949 BMI (ht and wt on same day) for age 18+ 06/01/1955 Pneumococcal series for age 50+ (1 of 1 - PCV) 06/01/1987 Zoster (shingles) series for age 50+ (1 of 2) 06/01/1987 DEXA/DXA scan for age 65+ 2002 Medicare Wellness for age 65+ 2002 RSV vaccine for adults or (1 - 1-dose 75+ series) 2012 COVID-19 vaccine series (2 - season) 2024 01/03/2024 Influenza Vaccine (#1) 2024 Hepatitis B series for 19+ Aged Out N o longer eligible based on patient's age to complete this topic Insurance MEDICARE [facility] ONLY Care Teams Seo Assistant Relationship Specialty Start Date End Date Yovani Salgado MD [address] [place] [address] PCP - General Internal Medicine 09/18/24
--- OUTSIDE RECORDS SUMMARY | 2024-11-07 10:19 | XMS_ITS | Clinical Summary ---
Author Organization [employer] work Address [address] [place] [address] [place] [address] Care Team Providers Care Senior Gamemaster Name Role Phone Marv Mcclendon MD Primary Care Provider + Allergies No known active allergies Medications pravastatin (PRAVACHOL) 40 MG tablet Take 1 tablet by mouth daily. 5 08/27/2014 Active cranberry extract 500 mg Tab Take 1 tablet by mouth Daily after dinner. 02/19/2018 Active tolterodine (DETROL LA) 4 MG 24 hr capsule Take 4 mg by mouth daily. Active omega 3-cpm-jhh-fish oil (FISH OIL) 1,000 mg (120 mg-180 [...] (03/13/2015): Updated by IMO Diagnosis Update Immunizations Immunization Administration Dates Next Due Fluzone Intramuscular 12/29/2012 [...] Ophthalmology Exam 1935 SDOH 1937 Tetanus/Pertussis Adult Vaccine (One-time Booster) 1956 Pneumococcal Vaccine: 50+ Years (1 of 1 - PCV) 06/01/1987 Zoster Vaccines (1 of 2) 06/01/1987 RSV Vaccine (1 - 1-dose 75+ series) 2012 Annual Medicare Wellness Exam 01/05/2014 Diabetes Hemoglobin A1c Screening 08/14/2018 02/13/2018, 12/19/2009 Annual Adult Depression Screen 02/16/2024 COVID-19 Vaccine (1 - 2023-2 5 season) 2024 Influenza Vaccine (#1) 2024 12/29/2012 Meningococcal Vaccine (MCV4) Aged Out No longer eligible based on patient's age to complete this topic Medical Devices Implanted Type Area General Office Clerk Device Identifier Shelf Expiration Date Model / Serial / Lot Lens Toric Iq 22.0 Iol (59988) - [id number] Implanted:Qty: 1 on 10/20/2011 by Filipe Monique MD at [facility] SURGERY [facility] 01/16/2016 / [id number] / Implant Inj 1ml Syr Coaptite ([id number]) - [id number] Implanted:Qty: 1 on 05/04/2017 by Yifan Aponte MD at [facility] N/A: Urethra [facility] UROLOGY GENECOLOGY [id number] 06/18/2019 [id number] / / [id number] Procedures Procedure Name Priority Date/Time Associated Diagnosis [...] the Diabetes Care, the Journal of the [place] Diabetes Association. Care must be taken when interpreting Hemoglobin A1C results from patients with hemoglobin variants/abnormalities. Falsely elevated or decreased results may occur. Estimated Average Glucose 120 MG/DL (CALC) MACL Comment: Test Performed at: [facility] [address] [place] [address] CROW MUNOZ MD Blood specimen (specimen) 02/13/2018 1:30 PM EST 02/13/2018 10:13 PM EST Narrative Resulting Agency Comment Performing Organization Information: Site ID: [id number] Name: Address: , Director: us Not On Staff LAB BLOOD ORDERABLES Final Resul t [facility] [address] from Last 3 Months or Most Recently Relevant to Health Maintenance Insurance MEDICARE PART A AND B [facility] Kranem Rolling Address: [facility] [address] [place] [address] [place] MEDICARE PART A AND B [facility] G VEI Rolling Address: [address] [place] [address] [facility] MEDICARE PART A AND B [facility] Malia LUNA Rolling Address: [address] [place] [address] [employer] [facility] MEDICARE PART A AND B FOR LIFE Advance Directives For more information, please contact: [phone] [phone] * Full Code (Latest Code Status on File) Date Activated Date Inactivated Comments 01/28/2018 10:50 PM 02/08/2018 1:23 PM Care Teams Senior Gamemaster Relationship Specialty Start Date End Date Marv Mcclendon MD [address] [place] [phone] PCP - General Internal Medicine 10/11/11
--- OUTSIDE RECORDS SUMMARY | 2024-11-07 10:19 | XMS_ITS | Encounter Summary ---
Author Organization [facility] [employer] [facility] work Address [address] [place] [address] Care Team Providers Care Bottom Presser Name Role Phone Marv Mcclendon MD Primary Care Provider + Encounter Details Date Type Department Care Team (Late st Contact Info) Description 12/18/2010 Logician Conversion V [facility] INFO MGT [address] [place] [phone] Social History Tobacco Use Types Packs/Day Years [...] on filedocumented in this encounter Care Teams Bottom Presser Relationship Specialty Start Date End Date Marv Mcclendon MD [address] [place] [address] PCP - General Internal Medicine 10/11/11 documented as of this encounter
--- OUTSIDE RECORDS SUMMARY | 2024-11-07 10:19 | XMS_ITS | Encounter Summary ---
Author Organization [employer] work Address [address] [place] [address] [place] [address] Care Team Providers Care Supervisor Airplane Flight Attendant Name Role Phone Marv Mcclendon MD Primary [...] + w/o Contrast ORDERED BY: TABBY LOAIZA ([facility]) [id number] Report: Radiology ([place]) Pt: MICHAEL CHESTER : 1935 MR#: [id number] Acct: [id number] Procedure: MRI Brain w/ + w/o Contrast Procedure Date: 08/15/2017 10:55:07 Location: [facility] Attending Physician: Ordering Physician: Tabby Loaiza EXAM: [...] + w/o Contrast ORDERED BY: TABBY LOAIZA ([facility]) [id number] Report: Radiology ([place]) Pt: MICHAEL CHESTER : 1935 MR#: [id number] Acct: [id number] Procedure: CT Angio Head w/ + w/o Contras Procedure Date: 08/15/2017 10:10:43 Location: [facility] Attending Physician: Ordering Physician: Tabby Loaiza EXAM: [...] IHIE: Vit B12 ORDERED BY: TABBY LOAIZA ([facility]) Lab Result Units Range Vitamin B12 Lvl 335 pg/mL 213-816 * Doctor Don - 08/15/2017 4:01 AM EDTAssociated Order(s): HIE LABORATORY RESULT This final report originated from an external system. Edits and Signatures are only valid in the legal medical record. IHIE: TSH ORDERED BY: ATBBY LOAIZA ([facility]) Lab Result Units Range TSH 1.40 uIU/mL 0.30-4.20 * Don Doctor - 08/15/2017 4:01 AM EDTAssociated Order(s): HIE LABORATORY RESULT This final report originated from an external system. Edits and Signatures are only valid in the legal medical record. IHIE: Free T4 ORDERED BY: TABBY Monkeysee ([facility]) Lab Result Units Range T4 Free 1.03 ng/mL 0.70-1.50 * Doctor Don - 08/15/2017 4:01 AM EDTAssociated Order(s): HIE LABORATORY RESULT This final report originated from an external system. Edits and Signatures are only valid in the legal medical record. IHIE: Lipid Panel Standard ORDERED BY: WAFU ([facility]) Lab Result Units Range Cholesterol Total 154 [...] Procedure Name Priority Date/Time Associated Diagnosis Comments [facility] RADIOLOGY REPORT 08/15/2017 10:55 AM EDT [facility] RADIOLOGY REPORT 08/15/2017 10:10 AM EDT [facility] RESULT 08/15/2017 4:01 AM EDT [facility] LAB[facility]AT[facility] RESULT 08/15/2017 4:01 AM EDT [facility] LABORAT[facility] RESULT 08/15/2017 4:01 AM EDT [facility] LABORAT[facility] RESULT 08/15/2017 4:01 AM EDT documented in this encounter Results * [facility] RADIOLOGY REPORT (08/15/2017 10:55 AM EDT) Anatomical Region Laterality Modality Other Narrative Procedure Note Doctor Don - 08/15/2017 10:55 AM EDT This final report originated from an external system. Edits and Signatures are only valid in the legal medical record. IHIE: MRI Brain w/ + w/o Contrast ORDERED BY: TABBY LOAIZA ([facility]) [id number] Report: Radiology ([place]) Pt: MICHAEL CHESTER : 1935 MR#: [id number] Acct: [id number] Procedure: MRI Brain w/ + w/o Contrast Procedure Date: 08/15/201710:55:07 Location: [facility] Attending Physician: Ordering Physician: Tabby Loaiza EXAM: [...] On: 08/16/2017 9:58:16 AM us Doctor [employer] [id number] Final Result * [facility] RADIOLOGY REPORT (08/15/2017 10:10 AM EDT) Anatomical Region Laterality Modality Other Narrative Procedure Note Doctor Don - 08/15/2017 10:10 AM EDT This final report originated from an external system. Edits and Signatures are only valid in the legal medical record. IHIE: CT Angio Head w/ + w/o Contrast ORDERED BY: TABBY LOAIZA ([facility]) [id number] Report: Radiology ([place]) Pt: MICHAEL CHESTER : 1935 MR#: [id number] Acct: [id number] Procedure: CT Angio Head w/ + w/o Contras Procedure Date: 08/15/201710:10:43 Location: [facility] Attending Physician: Ordering Physician: Tabby Loaiza EXAM: [...] M.D. On: 08/16/2017 9:33:01 AM Doctor [employer] [id number] Final Result * [facility] LABORATORY RESULT (08/15/2017 4:01 AM EDT) Narrative Procedure Note Automattie, Doctor - 08/15/2017 4:01 AM EDT This final report originated from an external system. Edits and Signatures are only valid in the legal medical record. IHIE: Lipid Panel Standard ORDERED BY: TABBY LOAIZA ([facility]) Lab Result Units Range Cholesterol Total 154 [...] 4.7-5.6 HIGHEST>6.9 NOTE: >5.6 Breakpoint Doctor [employer] [id number] Final Result * [facility] LABORATORY RESULT (08/15/2017 4:01 AM EDT) Narrative Procedure Note Don Doctor - 08/15/2017 4:01 AM EDT This final report originated from an external system. Edits and Signatures are only valid in the legal medical record. IHIE: Free T4 ORDERED BY: TABBY Monkeysee ([facility]) Lab Result Units Range T4 Free 1.03 ng/mL 0.70-1.50 Doctor [employer] [id number] Final Result * [facility] LABORATORY RESULT (08/15/2017 4:01 AM EDT) Narrative Procedure Note Don Doctor - 08/15/2017 4:01 AM EDT This final report originated from an external system. Edits and Signatures are only valid in the legal medical record. IHIE: TSH ORDERED BY: TABBY Monkeysee ([facility]) Lab Result Units Range TSH 1.40 uIU/mL 0.30-4.20 Doctor [employer] [id number] Final Result * [facility]IE LABORATORY RESULT (08/15/2017 4:01 AM EDT) Narrative Procedure Note [employer], Doctor - 08/15/2017 4:01 AM EDT This final report originated from an external system. Edits and Signatures are only valid in the legal medical record. IHIE: Vit B12 ORDERED BY: TABBY LOAIZA ([facility]) Lab Result Units Range Vitamin B12 Lvl 335 pg/mL 213-816 Doctor [employer] [id number] Final Result documented in this encounter Visit Diagnoses Not on filedocumented in this encounter Care Teams Supervisor Airplane Flight Attendant Relationship Specialty Start Date End Date Marv Mcclendon MD [address] [place] [phone] PCP - General Internal Medicine 10/11/11 documented as of this encounter
--- OUTSIDE RECORDS SUMMARY | 2024-11-07 10:19 | XMS_ITS | Encounter Summary ---
Author Organization [facility] work Address [address] [facility] [place] [address] Care Team Providers Care Retail Warehouse Supervisor Name Role Phone Marv Mcclendon MD Primary Care Provider + Encounter Details Date Type Department Care Team (Late st Contact Info) Description 02/26/2014 Orders Only [facility] [address] [place] [address] Colby Christopher MD [address] [facility] [address] [place] [address] CHESTER (dyspnea on exertion) (Primary Dx) Social [...] abnormality documented in this encounter Care Teams Retail Warehouse Supervisor Relationship Specialty Start Date End Date Marv Mcclendon MD [address] [place] [address] PCP - General Internal Medicine 10/11/11 documented as of this encounter
--- OUTSIDE RECORDS SUMMARY | 2024-11-07 10:19 | XMS_ITS | Encounter Summary ---
Author Organization [facility] [employer] [facility] work Address [address] [place] [address] Care Team Providers Care Contact Lens Manufacturer Name Role Phone Marv Mcclendon MD Primary Care Provider + Encounter Details Date Type Department Care Team (Late st Contact Info) Description 06/12/2011 Logician Conversion V [facility] HE[facility] INFO MGT [address] [place] [phone] Social History Tobacco Use Types Packs/Day Years [...] on filedocumented in this encounter Care Teams Contact Lens Manufacturer Relationship Specialty Start Date End Date Marv Mcclendon MD [address] [place] [address] PCP - General Internal Medicine 10/11/11 documented as of this encounter
--- OUTSIDE RECORDS SUMMARY | 2024-11-07 10:19 | XMS_ITS | Encounter Summary ---
Author Organization [facility] [employer] [facility] work Address [address] [place] [address] Care Team Providers Care Medical Operations Supervisor Name Role Phone Marv Mcclendon MD Primary Care Provider + Encounter Details Date Type Department Care Team (Late st Contact Info) Description 05/01/2010 Logician Conversion V [facility] HE[facility] INFO MGT [address] [place] [phone] Social History Tobacco Use Types Packs/Day Years [...] on filedocumented in this encounter Care Teams Medical Operations Supervisor Relationship Specialty Start Date End Date Marv Mcclendon MD [address] [place] [address] PCP - General Internal Medicine 10/11/11 documented as of this encounter
--- OUTSIDE RECORDS SUMMARY | 2024-11-07 10:19 | XMS_ITS | Encounter Summary ---
Author Organization Replaced By [facility] work Address [address] [place] [address] Care Team Providers Care Set Designer Name Role Phone Marv Mcclendon MD Primary Care Provider + Reason for Visit * Reason Comments Medication Refill Encounter Details Date Type Department Care Team (Late st Contact Info) Description 01/25/2016 Refill [facility] [address] [place] [phone] Saira Norwood NP [address] [place] [address] [place] [phone] Medication Refill Social History Tobacco Use Types [...] benign documented in this encounter Care Teams Set Designer Relationship Specialty Start Date End Date Marv Mcclendon MD [address] [facility] [place] [address] PCP - General Internal Medicine 10/11/11 documented as of this encounter
--- OUTSIDE RECORDS SUMMARY | 2024-11-07 10:19 | XMS_ITS | Clinical Summary ---
Author Organization [facility] Address [address] [place] [address] Care Team Providers Care Forest Pathology Associate Professor Name Role Phone Malia Mcclendon MD Primary Care Provider [phone] Aide Anguiano MD Unavailable [phone] Colby Christopher MD Unavailable [phone] Allergies No known active allergies Medications pravastatin (PRAVACHOL) 40 mg tablet Take 40 mg by mouth nightly Active carvedilol (COREG) 6.25 mg tablet Take 6.25 mg by mouth 2 (two) times daily with meals. Active tolterodine (DETROL LA) 4 mg ER capsule Take 4 mg by mouth daily Active CRANBERRY FRUIT EXTRACT (CRANBERRY EXTRACT, BULK,) by Does not apply route daily Active Csvrk-0-OKJ-EPA -Fish Oil (FISH OIL) 1,000 mg (120 [...] 06/29/2019, Additional history exists Influenza Vaccination (#1) 2024 COVID-19 Vaccine (1 - 2023-2 5 season) 2024 Lab-Lipid Screening 08/30/2025 08/30/2020, 9 Procedures Procedure Name Priority Date/Time Associated Diagnosis Comments COMPREHENSIVE METABOLIC PANEL Routine 12/27/2020 1:46 PM EST Postmenopausal osteoporosis LIPID PROFILE WITH REFLEX TO LDL, DIRECT Routine 11/11/2018 11:11 AM EDT from Last 3 Months or Most Recently Relevant to Health Maintenance Results * (ABNORMAL) COMPREHENSIVE METABOLIC PANEL (12/27/2020 1:46 PM EST) GLUCOSE 122(H) 70 - 99 mg/dL [facility] [employer] [facility] BUN 21 7 - 25 mg/dL [facility] CREATININE 0.8 0.6 - 1.2 mg/dL [facility] SODIUM 136 133 - 144 meq/L [facility] POTASSIUM 3.7 3.5 - 5.2 meq/L [facility] CHLORIDE 99 98 - 107 meq/L [facility] CARBON DIOXIDE 30.0 21.0 - 31.0 meq/L [facility] CALCIUM 9.8 8.6 - 10.3 mg/dL [facility] ALBUMIN 4.2 3.5 - 5.7 g/dL [facility] PROTEIN, TOTAL 7.1 6.4 - 8.9 g/dL [facility] ALKALINE PHOSPHATASE (ALP) 52 34 - 104 U/L [facility] AST (SGOT) 16 13 - 39 U/L [facility] ALT (SGPT) 15 7 - 52 U/L [facility] BILIRUBIN TOTAL 0.8 0.3 - 1.0 mg/dL [facility] ANION GAP 7.0 6.2 - 14.7 meq/L [facility] Plasma Venipuncture / Unknown 12/27/2020 1:46 PM EST 12/27/2020 1:58 PM EST Nate Olivarez MD LAB BLOOD ORDERABLES Final R esult [facility] * LIPID PANEL (11/11/2018 11:11 [...] Documents on File Type Date Recorded Patient Police Artist Expl anation Advanced Directives 07/05/2019 4:12 PM Advanced Directives 07/05/2019 7:39 AM Power of Student Liaison Officer 02/19/2015 9:52 AM [place] scan, Living will Power of Student Liaison Officer 02/19/2015 9:52 AM [facility] scan, Living will pg 2 * Full Code (Latest Code Status on File) Date Activated Date Inactivated Comments 07/03/2019 2:46 PM 07/04/2019 5:25 PM A code statu s order for Full Code means all appropriate CPR measures as defined in Code Status policy will be initiated in the event of cardiac and/or pulmonary arrest. Care Teams Forest Pathology Associate Professor Relationship Specialty Start Date End Date Malia Mcclendon MD PCP - General 10/03/10 Aide Anguiano MD [address] [place] [address] Hematology and Oncology 10/03/10 Colby Christopher MD [address] [place] [address] 10/03/10
--- NOTE | 2024-11-07 12:08 | CRLHL7_ITS ---
For Patients: As a result of the Century Cures Act, medical imaging exams and procedure reports are released immediately into your electronic medical record. You may view this report before your referring provider. If you have questions, please contact your health care provider. INDICATION: Transient ischemic attack, arm weakness. TECHNIQUE: Multisequence multiplanar MRI of the brain without the use of intravenous contrast. COMPARISON: Correlated with CT head dated 04/14/2024. FINDINGS: No evidence of acute ischemia. Scattered as well as confluent T2 prolongation within the supratentorial white matter typical for moderate chronic small-vessel ischemic changes. No focus of abnormal susceptibility artifact. Moderate diffuse parenchymal volume loss. The ventricles are proportional to the sulci. Flow voids of the larger intracranial arteries are preserved. Normal calvarial bone marrow signal intensity. Bilateral pseudophakia. The paranasal sinuses and mastoid air cells are predominantly clear. IMPRESSION: 1. No acute intracranial abnormality. Specifically, no evidence of acute ischemia. 2. Moderate diffuse parenchymal volume loss and chronic small vessel ischemic changes. Dictated by Jose Manuel Santoro MD @ 11/07/2024 1:08:05 PM (Electronically Signed)
--- NOTE | 2024-11-07 12:09 | CRLHL7_ITS ---
For Patients: As a result of the Cures Act, medical imaging exams and procedure reports are released immediately into your electronic medical record. You may view this report before your referring provider. If you have questions, please contact your health care provider. INDICATION: TIAs. TECHNIQUE: CT of the head without contrast. Coronal and sagittal reformats are included. COMPARISON: None. FINDINGS: No CT evidence of acute cortical infarct. No loss of trujillo white matter differentiation. No hyperdense vessels to suggest intracranial thrombus. No acute intracranial hemorrhage. No mass effect or midline shift. No hydrocephalus or extra-axial collections. Patchy white matter hypoattenuation, typical for chronic microvascular ischemic change. Mild generalized parenchymal volume loss. No acute osseous abnormalities. Mastoid air cells and paranasal sinuses are clear. Normal soft tissues. IMPRESSION: IMPRESSION:1. No CT evidence of acute cortical infarct. No acute intracranial hemorrhage. No other acute intracranial findings. Please note that all CT scans at this facility use dose modulation, iterative reconstruction, and/or weight-based dosing when appropriate to reduce radiation dose to as low as reasonably achievable. Dictated by Mulugeta Beasley MD @ 11/07/2024 2:07:49 PM (Electronically Signed)
--- NOTE | 2024-11-07 12:09 | CRLHL7_ITS ---
For Patients: As a result of the Century Cures Act, medical imaging exams and procedure reports are released immediately into your electronic medical record. You may view this report before your referring provider. If you have questions, please contact your health care provider. INDICATION: Acute stroke. TECHNIQUE: CTA head using intravenous contrast with bolus tracking, 3D angiographic rendering using maximum intensity projection (MIP) and images permanently archived. CTA neck using intravenous contrast with bolus tracking, 3D angiographic rendering using maximum intensity projection (MIP) and images permanently archived. FINDINGS: Examination is markedly limited by motion artifact. CTA head: There is grossly normal opacification of the intracranial vasculature. There is no obvious large vessel occlusion. No large aneurysm is identified. CTA neck: There is carotid and vertebral artery atherosclerosis bilaterally. There is probably at least a moderate stenosis of the left ICA origin. IMPRESSION: Motion limited study. No obvious large vessel occlusion. 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 Please note that all CT scans at this facility use dose modulation, iterative reconstruction, and/or weight-based dosing when appropriate to reduce radiation dose to as low as reasonably achievable. Dictated by Travis Smiley MD @ 11/07/2024 4:31:50 PM (Electronically Signed)
--- NOTE | 2024-11-07 12:19 | ED.NURSE ---
Patient to MRI.
--- NOTE | 2024-11-07 12:57 | ED.NEUROSD ---
HPI - Neuro Symptoms/Deficit General Date Seen: 11/07/24 Chief Complaint: Neuro Symptoms/Altered Deficit Stated Complaint: Poss TIA Time Seen by Provider: 11/07/24 11:49 Source: patient Mode of arrival: EMS Limitations: no limitations History of Present Illness HPI Narrative: Patient is an 89-year-old female presenting to the emergency department for concern of TIA. Patient went to bed last night feeling normal but then woke up today stating she felt off. Staff checked on the patient around 8 or 09:00. At that time they thought they noticed slurred speech. Patient states she she did not notice any slurred speech herself. Does states she felt confused this morning. She has chronic numbness in her right arm but felt like she was having difficulty moving it the way she wanted this morning. States she had difficulty getting her clothes on. She then noticed he was having difficulty brushing her teeth with her left hand. Symptoms have fully resolved now she states. States she feels back to normal. Denies fevers, chills, chest pain, shortness of breath, headache, lightheadedness, dizziness, abdominal pain, diarrhea, constipation. No other concerns noted at this time. Related Data Home Medications ?Medication ?Instructions ?Recorded ?Confirmed cholecalciferol (vitamin D3) 25 25 mcg PO QDAY 02/22/24 10/17/24 mcg (1,000 unit) capsule Previous Rx's ?Medication ?Instructions ?Recorded carvedilol 6.25 mg tablet 6.25 mg PO BID #180 tabs 04/06/24 pravastatin 40 mg tablet 40 mg PO QDAY #90 tabs 04/06/24 sertraline 100 mg tablet (Zoloft) 100 mg PO QDAY #90 tabs 08/25/24 naproxen 500 mg tablet (Naprosyn) 500 mg PO BID #30 tabs 10/05/24 Walker- 2 Wheels #1 ea 10/17/24 Allergies Allergy/AdvReac Type Severity Reaction Status Date / Time No Known Drug Allergies Allergy Verified 10/17/24 14:38 Review of Systems Status of ROS: Reports: 10 or more systems reviewed and unremarkable except as noted in History and below [facility] Medical History Cataract ?H26.9 - Unspecified cataract (ICD-10) Urinary incontinence ?R32 - Unspecified urinary incontinence (ICD-10) Joint pain ?M25.50 - Pain in unspecified joint (ICD-10) Trouble walking ?R26.2 - Difficulty in walking, not elsewhere classified (ICD-10) Hypertension ?I10 - Essential (primary) hypertension (ICD-10) Hyperlipidemia ?E78.5 - Hyperlipidemia, unspecified (ICD-10) Depression ?F32.A - Depression, unspecified (ICD-10) Urinary frequency ?R35.0 - Frequency of micturition (ICD-10) Surgical History History of tonsillectomy ?Z90.89 - Acquired absence of other organs (ICD-10) H/O bilateral mastectomy ?Z90.13 - Acquired absence of bilateral breasts and nipples (ICD-10) Family History Other Family history unknown Social History What is your current living situation?: declined to answer Problems where you live: declined to answer In the past 12 months, utilities in danger of being shut off: declined to answer In past 12 months, lack of transportation kept you from medical appts, meetings, work, or getting things needed for daily living: unable to answer How hard is it for you to pay for the very basics like food, housing, medical care, and heating: not very hard In the past 12 mos, have been you worried that your food would run out before you had money to buy more?: declined to answer In the past 12 mos, the food you bought just didn't last and you didn't have money to buy more?: declined to answer Smoking Status: Never smoker Do you use any of these nicotine containing products: None Second hand tobacco smoke exposure: No How often do you have a drink containing alcohol: 4 or more times a week AUDIT-C Alcohol total score: 4 Non-prescribed substance use: denies use How often does anyone, including family, friends and others, physically hurt you: decline to answer How often does anyone, including family, friends and others, insult or talk down to you: decline to answer How often does anyone, including family, friends and others, threaten you with harm: decline to answer How often does anyone, including family, friends and others, scream or curse at you: decline to answer Health Related Social Needs: unsheltered homelessness (Z59.02) Exam Narrative: Exam Narrative: Const: Well-nourished, Well-developed, in no distress Eyes: PERRL, no conjunctival injection, and symmetrical lids HENT: Atraumatic external nose and ears. Moist mucous membranes. Neck: Symmetric, trachea midline, No thyromegaly. CVS: RRR, No murmurs or gallops. Peripheral pulses 2+ and equal in all extremities RESP: Unlabored respiratory effort. Clear to auscultation bilaterally. GI: Nontender/Nondistended, No rebound or guarding. MSK:Extremities w/o deformity, Normal Active ROM Skin: Warm, Dry. No rashes or lesions. Neuro: Normal Muscle tone, Cranial nerves 2-12 grossly intact, normal wgqq-vc-vcor, normal cflyny-kq-ynsd, normal gait, normal strength 5/5 upper lower extremities bilaterally, normal sensation upper and lower extremities bilaterally, normal rapid alternating movements. Psych: Awake, Alert, & Oriented x3. Appropriate mood and affect. Const: Vital Signs, click to edit/add: Vital Signs - 24 hr 11/07/24 10:23 11/07/24 13:09 11/07/24 13:15 Pulse Rate 60 58 L Pulse Rate [Pulse Oximeter] 76 Respiratory Rate 16 12 15 Blood Pressure Blood Pressure [Ri ght Upper Arm] 127/85 Pulse Oximetry 96 98 97 [facility] 11/07/24 13:35 11/07/24 13:45 11/07/24 13:47 Pulse Rate 60 60 Pulse Rate [Pulse Oximeter] Respiratory Rate 18 13 12 Blood Pressure 154/68 H Blood Pressure [Ri ght Upper Arm] Pulse Oximetry 97 98 [facility] 11/07/24 13:47 11/07/24 14:00 11/07/24 14:15 Pulse Rate 63 60 66 Pulse Rate [Pulse Oximeter] Respiratory Rate 27 H 12 14 Blood Pressure 154/68 H Blood Pressure [Ri ght Upper Arm] Pulse Oximetry 89 99 97 [facility] 11/07/24 14:30 Pulse Rate Pulse Rate [Pulse Oximeter] Respiratory Rate 11 L Blood Pressure Blood Pressure [Ri ght Upper Arm] Pulse Oximetry Oxygen Delivery Me thod Course Vital Signs Vital signs: Initial Vital Signs Pulse Rate 76 11/07/24 10:23 Respiratory Rate 16 11/07/24 10:23 Blood Pressure 127/85 11/07/24 10:23 Blood Pressure Mean 99 11/07/24 10:23 Blood Pressure Position Sitting 11/07/24 10:23 Pulse Oximetry 96 11/07/24 10:23 Oxygen Delivery Method Room Air 11/07/24 10:23 Vital Signs Pulse Rate 76 11/07/24 10:23 Respiratory Rate 16 11/07/24 10:23 Blood Pressure 127/85 11/07/24 10:23 Pulse Oximetry 96 11/07/24 10:23 Oxygen Delivery Method Room Air 11/07/24 10:23 Pulse Rate 66 11/07/24 14:15 Respiratory Rate 11 L 11/07/24 14:30 Blood Pressure 154/68 H 11/07/24 13:47 Pulse Oximetry 97 11/07/24 14:15 Oxygen Delivery Method Room Air 11/07/24 10:23 Medications Administered Medications: Discontinued Medications Generic Name Dose Route Start Last Admin Trade Name Freq PRN Reason Stop Dose Admin Aspirin 324 mg 11/07/24 13:41 11/07/24 13:59 Aspirin 81 Mg Tab.Chew PO 11/07/24 13:42 324 mg ONCE ONE Administration MDM - Neuro Symptoms/Deficit MDM Narrative Medical decision making narrative: Patient is an 89-year-old female presenting to the emergency department for episode of slurred speech and weakness. The differential diagnosis of weakness is broad and includes TIA, infection, electrolyte abnormalities, ACS, arrhythmia, hypoglycemia, electrolyte abnormality, respiratory failure, anemia, hypothyroidism, dehydration, medication induced etc. do have concern about TA at this times will do a CT of her head lungs CTA head and neck. Will also do an MRI of her brain. Point of care glucose was 113 per per report. Will also order CBC, CMP, viral swabs, EKG, magnesium, urinalysis, troponin. EKG returned showing no concerning abnormalities. Patient's lab work returned showing no acute concerning abnormalities. Patient went straight to get the MRI of her brain. MRI returned showing no acute concerning abnormalities. All of her lab work returned showing no acute concerning abnormalities. CT scans reviewed by myself and the radiologist showed no acute concerning abnormalities. I spoke to Dr. Guerrero of [facility]. He recommends outpatient workup in states the patient is safe for discharge. Patient has been asymptomatic throughout her time in the emergency department. Neurology did recommend that she take an aspirin. This was ordered. They also recommend she uses a daily baby aspirin. She states she already takes this. no arrythmias were seen on satellite project site monitor. Lab Data Labs: Lab Results 11/07/24 11/07/24 11/07/24 Range/Units 13:00 13:03 13:05 WBC 10.51 (4.50-11.00) K/uL RBC 4.34 (4.00-5.20) m/uL Hgb 13.5 (12.0-16.0) gm/dL Hct 42.6 (33.0-51.0) % MCV 98 (80-100) fL MCH 31 (26-34) pg MCHC 32 (32-36) gm/dL RDW Coeff of Ana 13.2 (11.5-15.5) % Plt Count 273 (140-440) K/uL Neut % (Auto) 62.5 (42.0-72.0) % Lymph % (Auto) 26.7 (20-44) % [place] % (Auto) 8.8 (0.0-11.0) % Eos % (Auto) 1.6 (0.0-7.0) % Baso % (Auto) 0.3 (0.0-3.0) % Neut # (Auto) 6.56 (1.7-7.0) K/uL Lymph # (Auto) 2.81 (0.90-2.90) K/uL [place] # (Auto) 0.90 (0.00-0.90) K/UL Eos # (Auto) 0.17 (0.00-0.50) K/uL Baso # (Auto) 0.03 (0.00-0.30) K/uL Abs Immat Gran (auto) 0.01 (0.00-0.30) K/uL Imm/Tot Granulo (auto) 0.1 % Sodium 136 (135-149) mmol/L Potassium 4.3 (3.6-5.1) mmol/L Chloride 102 (96-114) mmol/L Carbon Dioxide 26 (20-32) mmol/L Anion Gap 8 (7-15) mEq/L BUN 14 (7-30) mg/dL Creatinine 0.8 (0.5-1.5) mg/dL Estimated Creat Clear 35.66 Estimated GFR 71 ml/min Glucose 101 (60-115) mg/dL Calcium 9.6 (8.4-10.6) mg/dL Magnesium 2.1 (1.5-2.6) mg/dL Total Bilirubin 1.2 (0.1-1.5) mg/dL AST 25 (12-35) U/L ALT 15 (4-35) U/L Alkaline Phosphatase 76 (40-150) U/L Troponin I < 0.01 (0.01-0.04) ng/mL Total Protein 7.2 (6.0-8.3) g/dL Albumin 4.1 (3.3-5.0) g/dL Urine Color Magaly A (Yellow) Urine Appearance Clear (Clear) Urine pH 6.0 (5.0-8.5) Ur Specific [place] 1.020 (1.000-1.030) Urine Protein Negative (Negative) Urine Glucose (UA) Negative (Negative) Urine Ketones Negative (Negative) Urine Blood Negative (Negative) Urine Nitrite Negative (Negative) Urine Bilirubin Negative (Negative) Urine Urobilinogen 1.0 (0.2-1.0) Ur Leukocyte Esterase Negative (Negative) Urine RBC 0-2 (0-2) Urine WBC 0-2 (0-5) Ur Squamous Epith Cells None (None-Few) Urine Bacteria None (None) SARS-CoV-2 (PCR) Negative SARS-CoV-2 (Negative) Influenza Type A (PCR) Negative PCR FLU A (Negative) Influenza Type B (PCR) Negative PCR FLU B (Negative) RSV (PCR) Negative PCR RSV (Negative) POC Creatinine 0.9 (0.6-1.3) mg/dl Imaging Data CT scan - head: Attestation: I have reviewed the pertinent imaging results. Radiologist's impression: 1. No CT evidence of acute cortical infarct. No acute intracranial hemorrhage. No other acute intracranial findings. Please note that all CT scans at this facility use dose modulation, iterative reconstruction, and/or weight-based dosing when appropriate to reduce radiation dose to as low as reasonably achievable. Dictated by Mulugeta Beasley MD @ 11/07/2024 2:07:49 PM CTA head and neck: Attestation: I have reviewed the pertinent imaging results. Radiologist's impression: Preliminary Report: FINDINGS: CTA head: No emergent large vessel occlusion or high-grade intracranial arterial stenosis. CTA neck: Motion artifact degrades the exam. Accounting for this, atherosclerotic plaque contributes to stenosis of the left internal carotid artery origin, at least mild likely moderate in degree. Dictated by Mulugeta Beasley MD @ 11/07/2024 2:10:53 PM MR Brain: Radiologist's impression: 1. No acute intracranial abnormality. Specifically, no evidence of acute ischemia. 2. Moderate diffuse parenchymal volume loss and chronic small vessel ischemic changes. Dictated by Jose Manuel Santoro MD @ 11/07/2024 1:08:05 PM ECG Data Attestation: I personally reviewed and interpreted this ECG as follows: Prior ECG tracings: not available for review Interpretation: Normal sinus rhythm rate 60 beats per minute, normal intervals, left axis, no ST or T-wave abnormalities. Discharge Plan Discharge Clinical Impression: Transient cerebral ischemia Patient Disposition: Home, Self-Care Condition: Stable Instructions: Transient Ischemic Attack (ED) Additional Instructions: I cannot say exactly what occurred but it may have been a transient ischemic attack. This is when there was an episode decreased blood flow to a certain part of your brain that then spontaneously improves. All your workup was unremarkable and it is recommended you follow-up with your primary care provider for possible outpatient echocardiogram. Return to emergency department for new or worsening symptoms. Her also some mild to moderate plaques noted in the left internal carotid artery. Follow-up with your primary care provider for this too. Prescriptions: No Action cholecalciferol (vitamin D3) 25 mcg (1,000 unit) capsule 25 mcg PO QDAY carvedilol 6.25 mg tablet 6.25 mg PO BID Qty: 180 3RF Rx Instructions: must administer with a meal/food pravastatin 40 mg tablet 40 mg PO QDAY Qty: 90 3RF (DME) Walker- 2 Wheels [facility] See Rx Instructions .Route Qty: 1 0RF Rx Instructions: As directed sertraline [Zoloft] 100 mg tablet 100 mg PO QDAY Qty: 90 1RF naproxen [Naprosyn] 500 mg tablet 500 mg PO BID Qty: 30 0RF Follow Up/Referrals: Yovani Salgado MD [Primary Care Provider, Internal Medicine] Stand Alone Forms: [employer] Info Instructions
[2024-11-07 13:14] LABS: Hematocrit* 42.6 % (33.0-51.0); Hemoglobin* 13.5 gm/dL (12.0-16.0); Immature Granulocytes Abs Auto 0.01 K/uL (0.00-0.30); Immature Granulocytes Pct Auto 0.1 %; Lymphocytes Absolute Auto 2.81 K/uL (0.90-2.90); Mean Corpuscular HGB Conc 32 gm/dL (32-36); Mean Corpuscular Hemoglobin 31 pg (26-34); Mean Corpuscular Volume 98 fL (80-100); RDW Coefficient of Variation % 13.2 % (11.5-15.5); Red Blood Count* 4.34 m/uL (4.00-5.20); White Blood Count* 10.51 K/uL (4.50-11.00)
[2024-11-07 13:17] LABS: Slide Review Reflex No
[2024-11-07 13:25] LABS: Appearance Urine Clear (Clear)
[2024-11-07 13:30] LABS: Creatinine, Point-of-Care* 0.9 mg/dl (0.6-1.3)
[2024-11-07 13:33] LABS: Albumin* 4.1 g/dL (3.3-5.0); Chloride* 102 mmol/L (96-114); Potassium* 4.3 mmol/L (3.6-5.1); Sodium* 136 mmol/L (135-149)
[2024-11-07 13:35] LABS: Blood Urea Nitrogen* 14 mg/dL (7-30); Creatinine* 0.8 mg/dL (0.5-1.5); Est. Creatinine Clearance* 35.66; Estimated Glomerular Filt Rate 71 ml/min
[2024-11-07 13:36] LABS: Alanine Aminotransferase* 15 U/L (4-35); Alkaline Phosphatase* 76 U/L (40-150); Anion Gap 8 mEq/L (7-15); Aspartate Amino Transferase* 25 U/L (12-35); Bilirubin Total* 1.2 mg/dL (0.1-1.5); Calcium* 9.6 mg/dL (8.4-10.6); Carbon Dioxide* 26 mmol/L (20-32); Glucose* 101 mg/dL (60-115); Total Protein* 7.2 g/dL (6.0-8.3)
[2024-11-07 13:50] LABS: PCR FLU A Negative PCR FLU A (Negative); PCR FLU B Negative PCR FLU B (Negative); PCR RSV Negative PCR RSV (Negative); SARS PCR* Negative SARS-CoV-2 (Negative)
[2024-11-07] MEDS: ASPIRIN 81 MG TAB.CHEW 324 MG PO (13:59)
== END 2024-11-07 15:04 | disposition home or self-care (01) ==
PROVIDERS: Emergency Provider Student in an Organized Health Care Education/Training Program; PCP Internal Medicine
DX: G45.9 Transient cerebral ischemic attack, unspecified (principal)
CPT/HCPCS: 36415; 70450; 70496; 70498; 70551; 80053; 81001; 82565; 83735; 84484; 85025; 87631; 93005; 99284; 99285; A9270; Q9967

== ENCOUNTER 2024-12-28 15:56 | Outpatient (CLI) | payer MEDICARE, OTHER, SELFPAY | END 2024-12-28 15:57 | disposition home or self-care (01) | LOC: AMB 12-30 22:07 | PROVIDERS: PCP Internal Medicine; Visit Provider Emergency Medicine | DX: R53.1 Weakness (principal); U07.1 COVID-19 | CPT/HCPCS: A0425; A0427 ==

== ENCOUNTER 2024-12-28 16:36 | Observation (INO) | payer MEDICARE, OTHER, SELFPAY ==
--- OUTSIDE RECORDS SUMMARY | 2023-12-18 03:00 | XMS_ITS ---
Author Organization [facility] Address [address] [place] [address] Care Team Providers Care Wire Bender Hand Name Role Phone Migration, Provider Unavailable Unavailable REASON FOR VISIT EMR-Rodrigue Encounters Encounter Location Date Provider Diagnosis [facility] [address] [facility] [place] [address] 12/18/2023 Provider Migration Plan Of Treatment Medication Medication Name Sig Start Date Stop Date Notes Xanax 0.25 MG Tablet Oral as needed 02/02/2008 Lapsed Medication In Intergy. Spironolactone 50 MG Tablet Oral once a day 01/16/2008 02/02/2008 Lapsed Medicatio n In Intergy. Prempro 0.3-1.5 MG Tablet Oral once a day 01/16/200802/01 Lapsed Medication In Intergy. Multiple Vitamin Tablet Oral once a day 01/16/2008 008 Lapsed Medication In Intergy. Progress Notes * MICHAEL CHESTER HDOB:[birth year] (89 yo F)Acc No.[id number]:12/18/2023 Patient: AALIYAH MARIOINE Navi :1935 A ge:88 Y S ex:Female Address:[address] [facility] [place], [place] [address] * Refills Stop Multiple Vitamin Tablet, Oral, 30, once a day Stop Prempro Tablet, 0.3-1.5 MG, Oral, 30, once a day Stop Spironolactone Tablet, 50 MG, Oral, 30, once a day Stop Spironolactone Tablet, 50 MG, Oral, 30, once a day Stop Xanax Tablet, 0.25 MG, Oral, 0, as needed Subjective: * Chief Complaints: * E MR-Rodrigue * * Date:
--- OUTSIDE RECORDS SUMMARY | 2023-12-19 03:00 | XMS_ITS ---
Author Organization [facility] Address [address] [place] [address] Care Team Providers Care Shaping Machine Operator Name Role Phone Migration, Provider Unavailable Unavailable Allergies No Known Allergies REASON FOR VISIT EMR-Rodrigue Encounters Encounter Location Date Provider Diagnosis [facility] [address] [place] [address] 12/19/2023 Provider Migration Plan Of Treatment No Information Progress Notes * MICHAEL CHESTER HDOB:[birth year] (89 yo F)Acc No.[id number]:12/19/2023 Patient: GISELL MARIOKIMANI Mcelroy :1935 A ge:88 Y S ex:Female Address:[address] [facility] [place], [address] Subjective: * Chief Complaints: * E MR-Rodrigue * Allergies: N .K.D.A. * * Date:
[2024-12-28] VITALS (12 sets, daily range): BP systolic 121–146; BP diastolic 69–79; PULSE 80–103; RESP 16–24; TEMP 36.7–37.2; O2SAT 94–97; BMI 32.7
--- OUTSIDE RECORDS SUMMARY | 2024-12-28 16:38 | XMS_ITS | Clinical Summary ---
Author Organization [facility] Address [address] [place] [address] Care Team Providers Care Curriculum And Assessment Coordinator Name Role Phone Yovani Salgado MD Primary Care Provider [phone] Encounters Date Type Department Care Team Description 10/27/2024 10:30 AM CDT Office Visit [facility] [address] [place] [address] Jerrod Rodriguez, AuD Hearing Aid 10/27/2024 Telephone [facility] [address] [place] [address] Jerrod Rodriguez AuD Follow Up (Hearing aids) 10/26/2024 Travel 10/18/2024 Telephone [facility] [address] [place] [address] Jerrod Rodriguez, AuD Hearing Aid 09/29/2024 2:30 PM CDT Office Visit [address] [address] Jerrod Rodriguez AuD Hearing Aid (Consultation) 09/29/2024 1:30 PM CDT Office Visit [address] [address] Jerrod Rodriguez, AuD Hearing Problem 09/29/2024 Travel from Last 3 Months Social History Tobacco Use Types Packs/Day Years Used Date Smoking Tobacco: Never Assessed Comments Unknown Sex and Gender Information Value Date Recorded Sex Assigned at Not on file Legal Sex Female 12:46 PM CDT Gender Identity Not on file Sexual Orientation Not on file Plan of Treatment Health Maintenance Due Date [...] or (1 - 1-dose 75+ series) 2012 Influenza Vaccine (#1) 2024 Hepatitis B series for 19+ Aged Out N o longer eligible based on patient's age to complete this topic Insurance MEDICARE [facility] ONLY Care Teams Curriculum And Assessment Coordinator Relationship Specialty Start Date End Date Yovani Salgado MD [address] [place] [address] PCP - General Internal Medicine 09/18/24
--- OUTSIDE RECORDS SUMMARY | 2024-12-28 16:38 | XMS_ITS | Clinical Summary ---
Author Organization [facility] Address [address] [place] [address] Care Team Providers Care Bulldozer Mechanic Name Role Phone Malia Mcclendon MD Primary Care Provider [phone] Aide Anguiano MD Unavailable [phone] Colby Christopher MD Unavailable [phone] Allergies No known active allergies Medications pravastatin (PRAVACHOL) 40 mg tablet Take 40 mg by mouth nightly Active carvedilol (COREG) 6.25 mg tablet Take 6.25 mg by mouth 2 (two) times daily with meals. Active tolterodine (DETROL LA) 4 mg ER capsule Take 4 mg by mouth daily Active CRANBERRY FRUIT EXTRACT (CRANBERRY EXTRACT, BULK,) by Does not apply route daily Active [id number] -Fish Oil (FISH OIL) 1,000 mg (120 [...] Vaccination (#1) 2024 COVID-19 Vaccine (1 - 2024-2 6 season) 2024 Lab-Lipid Screening 08/30/2025 08/30/2020, 9 [...] EST) GLUCOSE 122(H) 70 - 99 mg/dL [facility] BUN 21 7 - 25 mg/dL [facility] CREATININE 0.8 0.6 - 1.2 mg/dL [facility] SODIUM 136 133 - 144 meq/L [facility] POTASSIUM 3.7 3.5 - 5.2 meq/L [facility] CHLORIDE 99 98 - 107 meq/L [facility] CARBON DIOXIDE 30.0 21.0 - 31.0 meq/L [facility] CALCIUM 9.8 8.6 - 10.3 mg/dL [facility] ALBUMIN 4.2 3.5 - 5.7 g/dL [facility] PROTEIN, TOTAL 7.1 6.4 - 8.9 g/dL [facility] ALKALINE PHOSPHATASE (ALP) 52 34 - 104 U/L [facility] AST (SGOT) 16 13 - 39 U/L [facility] ALT (SGPT) 15 7 - 52 U/L [facility] BILIRUBIN TOTAL 0.8 0.3 - 1.0 mg/dL [facility] ANION GAP 7.0 6.2 - 14.7 meq/L [facility] Plasma Venipuncture / Unknown 12/27/2020 1:46 PM EST 12/27/2020 1:58 PM EST Nate Olivarez MD LAB BLOOD ORDERABLES Final R esult [facility] * LIPID PANEL (11/11/2018 11:11 [...] Documents on File Type Date Recorded Patient Ict Systems Test Engineer Expl anation Advanced Directives 07/05/2019 4:12 PM Advanced Directives 07/05/2019 7:39 AM Power of Powder Cutting Operator 02/19/2015 9:52 AM Neeru scan, Living will Power of Powder Cutting Operator 02/19/2015 9:52 AM [facility] scan, Living will pg 2 * Full Code (Latest Code Status on File) Date Activated Date Inactivated Comments 07/03/2019 2:46 PM 07/04/2019 5:25 PM A code statu s order for Full Code means all appropriate CPR measures as defined in Code Status policy will be initiated in the event of cardiac and/or pulmonary arrest. Care Teams Bulldozer Mechanic Relationship Specialty Start Date End Date Malia Mcclendon MD PCP - General 10/03/10 Aide Anguiano MD [address] [place] [address] Hematology and Oncology 10/03/10 Colby Christopher MD [address] [place] [address] 10/03/10
--- OUTSIDE RECORDS SUMMARY | 2024-12-28 16:38 | XMS_ITS | Encounter Summary ---
Author Organization [facility] Address [address] [place] [address] Phone Care Team Providers Care Tetryl Nitrator Operator Name Role Phone Malia Mcclendon MD Primary Care Provider [phone] Aide Anguiano MD Unavailable [phone] Colby Christopher MD Unavailable [phone] Encounter Details Date Type Department Care Team (Late st Contact Info) Description 12/20/2019 Orders Only Pharmacy - [place] [address] [place] [address] Nolvia Zimmerman RPh Postmenopausal osteoporosis (Primary Dx) [...] osteoporosis documented in this encounter Care Teams Tetryl Nitrator Operator Relationship Specialty Start Date End Date Malia Mcclendon MD PCP - General 10/03/10 Aide Anguiano MD [address] [place] [address] Hematology and Oncology 10/03/10 Colby Christopher MD [address] [place] [address] 10/03/10 documented as of this encounter
--- OUTSIDE RECORDS SUMMARY | 2024-12-28 16:38 | XMS_ITS | Patient Health Record ---
Author Organization [facility] Address [address] [place] [address] Support Name Relationship Address Phone MICHAEL CHESTER Guarantor Unknown Allergies No Known Allergies Reason For Referral No Information Plan Of Treatment No Information Insurance Providers Payer Name Payer Address Payer Phone Subscriber Number Group Number Insured Name Patient Relationship to Insured Coverage Start Date Coverage End Date [place] Medicare Part [place] J8 [address] [place] [address] [phone] [id number] MICHAEL CHESTER Self - patient is the insured 3 for Life [address] [place] [address] [id number] IMANI CHESTER Spouse - patient is the spouse of the insured
--- OUTSIDE RECORDS SUMMARY | 2024-12-28 16:39 | XMS_ITS | Clinical Summary ---
Author Organization [facility] Address [address] [place] [address], [place] [address] Care Team Providers Care Carbon Dioxide Operator Name Role Phone Marv Mcclendon Primary [...] topic Insurance MEDICARE PART A & B [facility] MEDICARE Care Teams Carbon Dioxide Operator Relationship Specialty Start Date End Date Marv Mcclendon [address] [place] [address] PCP - General Internal Medicine 11/05/20
--- NOTE | 2024-12-28 16:53 | ED.GENADULT ---
HPI - General Adult General Time Seen by Provider: 16:54 Date Seen: 12/28/24 Chief complaint: Weakness Stated complaint: weakness Time Seen by Provider: 12/28/24 16:53 Source: patient, RN notes reviewed and old records reviewed Mode of arrival: EMS Limitations: no limitations History of Present Illness HPI narrative: Frannie is a very pleasant 89-year-old female looking younger than her stated age with a history of hypertension, hyperlipidemia who comes to the emergency room for evaluation regarding COVID and weakness. Patient notes the onset of some coughing at her home at [facility] last night. Today she has had less of a cough it seems to be weak. Been very weak and has had near falls but has not fallen. Staff has assisted her today. She denies fever, headache, sore throat, runny nose, shortness of breath, difficulty breathing. She has not had any vomiting or diarrhea. She does feel that she has had decreased urinary output. Related Data Home Medications ?Medication ?Instructions ?Recorded ?Confirmed cholecalciferol (vitamin D3) 25 25 mcg PO QDAY 02/22/24 12/28/24 mcg (1,000 unit) capsule naproxen 500 mg tablet (Naprosyn) 500 mg PO BID PRN 11/16/24 12/28/24 Previous Rx's ?Medication ?Instructions ?Recorded carvedilol 6.25 mg tablet 6.25 mg PO BID #180 tabs 04/06/24 pravastatin 40 mg tablet 40 mg PO QDAY #90 tabs 04/06/24 sertraline 100 mg tablet (Zoloft) 100 mg PO QDAY #90 tabs 08/25/24 Walker- 2 Wheels #1 ea 10/17/24 Allergies Allergy/AdvReac Type Severity Reaction Status Date / Time No Known Drug Allergies Allergy Verified 12/28/24 16:50 Review of Systems Status of ROS: Reports: 10 or more systems reviewed and unremarkable except as noted in History and below Const: Reports: fatigue; Denies: fever or chills Eyes: Denies: change in vision ENMT: Denies: throat pain, neck pain or nasal congestion Cardio: Reports: lightheadedness; Denies: chest pain, palpitations or shortness of breath with exertion Resp: Reports: cough; Denies: shortness of breath GI: Denies: abdominal pain, nausea, vomiting or diarrhea : Denies: painful urination or urinary frequency Musculo: Denies: back pain or neck pain Integ/Breast: Denies: rash Neuro: Reports: weakness in extremities; Denies: headache, numbness in extremities or lack of coordination Endo: Reports: fatigue PFSH PFSH Medical History Cataract ?H26.9 - Unspecified cataract (ICD-10) Urinary incontinence ?R32 - Unspecified urinary incontinence (ICD-10) Joint pain ?M25.50 - Pain in unspecified joint (ICD-10) Trouble walking ?R26.2 - Difficulty in walking, not elsewhere classified (ICD-10) Hypertension ?I10 - Essential (primary) hypertension (ICD-10) Hyperlipidemia ?E78.5 - Hyperlipidemia, unspecified (ICD-10) Depression ?F32.A - Depression, unspecified (ICD-10) Urinary frequency ?R35.0 - Frequency of micturition (ICD-10) Surgical History History of tonsillectomy ?Z90.89 - Acquired absence of other organs (ICD-10) H/O bilateral mastectomy ?Z90.13 - Acquired absence of bilateral breasts and nipples (ICD-10) Family History Other Family history unknown Social History What is your current living situation?: declined to answer Problems where you live: declined to answer In the past 12 months, utilities in danger of being shut off: declined to answer In past 12 months, lack of transportation kept you from medical appts, meetings, work, or getting things needed for daily living: unable to answer How hard is it for you to pay for the very basics like food, housing, medical care, and heating: not very hard In the past 12 mos, have been you worried that your food would run out before you had money to buy more?: declined to answer In the past 12 mos, the food you bought just didn't last and you didn't have money to buy more?: declined to answer Smoking Status: Never smoker Do you use any of these nicotine containing products: None Second hand tobacco smoke exposure: No How often do you have a drink containing alcohol: 4 or more times a week How many standard drinks containing alcohol do you have on a typical day: 1 or 2 AUDIT-C Alcohol total score: 4 Non-prescribed substance use: denies use How often does anyone, including family, friends and others, physically hurt you: decline to answer How often does anyone, including family, friends and others, insult or talk down to you: decline to answer How often does anyone, including family, friends and others, threaten you with harm: decline to answer How often does anyone, including family, friends and others, scream or curse at you: decline to answer Health Related Social Needs: unsheltered homelessness (Z59.02) Exam Narrative: Exam Narrative: Alert and oriented. Head is atraumatic normocephalic. Very pleasant well-spoken woman in no acute distress. Ears eyes nose clear. Oral cavity with moist mucous membranes. Neck is supple heart with regular rate and rhythm. Lungs are clear bilaterally. Abdomen soft nontender. Lower extremities with no edema. She is able to move all of her extremities. Const: Vital Signs, click to edit/add: Vital Signs - 24 hr 12/28/24 16:46 12/28/24 17:16 12/28/24 17:24 Temperature 98.7 F Pulse Rate 103 H Pulse Rate [Right Pulse Oximeter] 94 Respiratory Rate 22 16 Blood Pressure 121/69 Blood Pressure [Ri ght Upper Arm] 136/79 Pulse Oximetry 94 94 Oxygen Delivery Me thod Room Air 12/28/24 17:45 12/28/24 18:00 12/28/24 18:15 Temperature Pulse Rate 99 88 84 Pulse Rate [Right Pulse Oximeter] Respiratory Rate 24 21 Blood Pressure Blood Pressure [Ri ght Upper Arm] Pulse Oximetry 95 94 96 Oxygen Delivery Me thod 12/28/24 18:30 12/28/24 18:45 12/28/24 19:00 Temperature Pulse Rate 83 86 80 Pulse Rate [Right Pulse Oximeter] Respiratory Rate 22 20 23 Blood Pressure Blood Pressure [Ri ght Upper Arm] Pulse Oximetry 97 97 96 Oxygen Delivery Me thod 12/28/24 19:33 Temperature Pulse Rate Pulse Rate [Right Pulse Oximeter] Respiratory Rate 17 Blood Pressure Blood Pressure [Ri ght Upper Arm] Pulse Oximetry Oxygen Delivery Ok thod Documenting provider has reviewed patient's vital signs: yes Course Course ED Course: Patient had a positive COVID test at [facility]. He is presenting with near falls but no fall or trauma. She has oxygen levels at 94%. Blood pressure and recheck of pulse are all normal. At this time will check her electrolytes, do a chest x-ray and continue on pulse oximetry. Will give her 1 L of normal saline. Reevaluation(s) Reevaluation #1: Patient noted to be feeling better. Unfortunately after her fluids a recheck shows her to be even quite weak just standing up. Vital Signs Vital signs: Initial Vital Signs Temperature 98.7 F 12/28/24 16:46 Temperature Source Temporal Artery Scan 12/28/24 16:46 Pulse Rate 94 12/28/24 16:46 Pulse Rhythm Regular 12/28/24 16:46 Pulse Strength 3+ Normal 12/28/24 16:46 Respiratory Rate 22 12/28/24 16:46 Blood Pressure 136/79 12/28/24 16:46 Blood Pressure Mean 98 12/28/24 16:46 Blood Pressure Position Sitting 12/28/24 16:46 Pulse Oximetry 94 12/28/24 16:46 Oxygen Delivery Method Room Air 12/28/24 16:46 Vital Signs Temperature 98.7 F 12/28/24 16:46 Pulse Rate 94 12/28/24 16:46 Respiratory Rate 22 12/28/24 16:46 Blood Pressure 136/79 12/28/24 16:46 Pulse Oximetry 94 12/28/24 16:46 Oxygen Delivery Method Room Air 12/28/24 16:46 Temperature 98.7 F 12/28/24 16:46 Pulse Rate 80 12/28/24 19:00 Respiratory Rate 17 12/28/24 19:33 Blood Pressure 121/69 12/28/24 17:24 Pulse Oximetry 96 12/28/24 19:00 Oxygen Delivery Method Room Air 12/28/24 16:46 Medications Administered Medications: Discontinued Medications Generic Name Dose Route Start Last Admin Trade Name Freq PRN Reason Stop Dose Admin Sodium Chloride 500 mls @ 500 mls/hr 12/28/24 17:10 12/28/24 17:49 0.9 % Sodium Chloride 500 Ml IV 12/28/24 18:09 500 mls/hr .Q1H BERNARDO Administration Medical Decision Making MDM Narrative Medical decision making narrative: 1. COVID-positive COVID test at assisted living. No evidence of hypoxia, hypo tension or pneumonia on x-ray. Unfortunately patient unable to ambulate and does require increased cares. I did indicate to patient that she will be an observation admission and that she may half to cover part of the costs of her hospitalization. She states that she has for Life and likely will not be affected by this. I did tell her she does not meet criteria for inpatient admission. 2. Weakness-as above. Likely secondary to COVID. No evidence of UTI or secondary pneumonia. 3. Disposition-observation admission under the care of ALVARADO Connolly. Medical Records Medical records reviewed: Yes I reviewed the patient's medical records Lab Data Lab results reviewed: Yes I reviewed the patient's lab results Labs: Lab Results 12/28/24 12/28/24 Range/Units 17:20 17:47 WBC 10.24 (4.50-11.00) K/uL RBC 4.37 (4.00-5.20) m/uL Hgb 13.3 (12.0-16.0) gm/dL Hct 42.0 (33.0-51.0) % MCV 96 (80-100) fL MCH 30 (26-34) pg MCHC 32 (32-36) gm/dL RDW Coeff of Ana 13.4 (11.5-15.5) % Plt Count 258 (140-440) K/uL Neut % (Auto) 72.8 H (42.0-72.0) % Lymph % (Auto) 14.5 L (20-44) % [place] % (Auto) 11.9 H (0.0-11.0) % Eos % (Auto) 0.5 (0.0-7.0) % Baso % (Auto) 0.1 (0.0-3.0) % Neut # (Auto) 7.50 H (1.7-7.0) K/uL Lymph # (Auto) 1.50 (0.90-2.90) K/uL [place] # (Auto) 1.20 H (0.00-0.90) K/UL Eos # (Auto) 0.05 (0.00-0.50) K/uL Baso # (Auto) 0.01 (0.00-0.30) K/uL Abs Immat Gran (auto) 0.02 (0.00-0.30) K/uL Imm/Tot Granulo (auto) 0.2 % Sodium 133 L (135-149) mmol/L Potassium 4.2 (3.6-5.1) mmol/L Chloride 102 (96-114) mmol/L Carbon Dioxide 26 (20-32) mmol/L Anion Gap 5 L (7-15) mEq/L BUN 16 (7-30) mg/dL Creatinine 0.8 (0.5-1.5) mg/dL Estimated GFR 71 ml/min Glucose 112 (60-115) mg/dL Calcium 9.4 (8.4-10.6) mg/dL Total Bilirubin 0.7 (0.1-1.5) mg/dL AST 23 (12-35) U/L ALT 16 (4-35) U/L Alkaline Phosphatase 70 (40-150) U/L C-Reactive Protein 2.0 H (0.5-1.0) mg/dL Total Protein 7.4 (6.0-8.3) g/dL Albumin 3.9 (3.3-5.0) g/dL Urine Color Yellow (Yellow) Urine Appearance Clear (Clear) Urine pH 8.0 (5.0-8.5) Ur Specific [place] 1.015 (1.000-1.030) Urine Protein Trace A (Negative) Urine Glucose (UA) Negative (Negative) Urine Ketones Negative (Negative) Urine Blood Negative (Negative) Urine Nitrite Negative (Negative) Urine Bilirubin Negative (Negative) Urine Urobilinogen 2.0 A (0.2-1.0) Ur Leukocyte Esterase Negative (Negative) Urine RBC 0-2 (0-2) Urine WBC 2-5 (0-5) Ur Squamous Epith Cells Few (None-Few) Urine Bacteria Few A (None) Imaging Data Chest x-ray: Attestation: I have reviewed the pertinent imaging results. My impression: I do not note any acute infiltrates or widened mediastinum. Radiologist's impression: Findings/Impression: No focal consolidation, pleural effusion, or pneumothorax. The cardiac silhouette is normal. Hazy/cloudy calcifications overlying the bilateral acromioclavicular and glenohumeral joints, which could be reflective of calcific deposition. Discharge Plan Discharge Prescriptions: No Action cholecalciferol (vitamin D3) 25 mcg (1,000 unit) capsule 25 mcg PO QDAY carvedilol 6.25 mg tablet 6.25 mg PO BID Qty: 180 3RF Rx Instructions: must administer with a meal/food pravastatin 40 mg tablet 40 mg PO QDAY Qty: 90 3RF (DME) Walker- 2 Wheels Misc See Rx Instructions .Route Qty: 1 0RF Rx Instructions: As directed naproxen [Naprosyn] 500 mg tablet 500 mg PO BID PRN sertraline [Zoloft] 100 mg tablet 100 mg PO QDAY Qty: 90 1RF Follow Up/Referrals: Yovani Salgado MD [Primary Care Provider, Internal Medicine]
--- NOTE | 2024-12-28 17:09 | CRLHL7_ITS ---
For Patients: As a result of the Century Cures Act, medical imaging exams and procedure reports are released immediately into your electronic medical record. You may view this report before your referring provider. If you have questions, please contact your health care provider. Indication: COVID. Weakness. Technique: Chest 1 view. Comparison: None. Findings/Impression: No focal consolidation, pleural effusion, or pneumothorax. The cardiac silhouette is normal. Hazy/cloudy calcifications overlying the bilateral acromioclavicular and glenohumeral joints, which could be reflective of calcific deposition. Dictated by Bairon Borges MD @ 12/28/2024 6:04:22 PM (Electronically Signed)
[2024-12-28 17:37] LABS: Hematocrit* 42.0 % (33.0-51.0); Hemoglobin* 13.3 gm/dL (12.0-16.0); Immature Granulocytes Abs Auto 0.02 K/uL (0.00-0.30); Immature Granulocytes Pct Auto 0.2 %; Mean Corpuscular HGB Conc 32 gm/dL (32-36); Mean Corpuscular Hemoglobin 30 pg (26-34); Mean Corpuscular Volume 96 fL (80-100); RDW Coefficient of Variation % 13.4 % (11.5-15.5); Red Blood Count* 4.37 m/uL (4.00-5.20); White Blood Count* 10.24 K/uL (4.50-11.00)
[2024-12-28 17:46] LABS: Lymphocytes Absolute Auto 1.50 K/uL (0.90-2.90); Slide Review Reflex No
[2024-12-28] MEDS: 0.9 % SODIUM CHLORIDE 500 ML 500 ML IV (17:49)
[2024-12-28 17:53] LABS: Appearance Urine Clear (Clear)
[2024-12-28 18:01] LABS: Albumin* 3.9 g/dL (3.3-5.0); Chloride* 102 mmol/L (96-114)
[2024-12-28 18:02] LABS: Potassium* 4.2 mmol/L (3.6-5.1); Sodium* 133 mmol/L (135-149)
--- OUTSIDE RECORDS SUMMARY | 2024-12-28 18:02 | XMS_ITS | Data Portability ---
Author Organization [place] [facility], [facility] [address] [place] [address] Assessment Encounter Date Assessment Date Assessment LastModified by Organization Details LastModified Time 08/04/2022 08/04/2022 Medication reviewed and reconciled. Vital signs reviewed. Pertinent/avai lable labs reviewed. Progress notes reviewed at the facility. Discussed with staff at facility. The patient is responding well to the current regimen and tolerating without evidence of significant side effects. Recommend to continue the current regimen as ordered. [email or web address] Not available 08/06/2022 06:55:39 Plan of Treatment Reminders Order Date Submit Date Provider Last Modified By Organization Details Last Modified Time Details Appointments None recorded. Lab None recorded. Referral None recorded. Procedures None recorded. Surgeries None recorded. Imaging None recorded. Medication Orders tobramycin 0.3 % eye drops 2023 024 [id number], [address], [place], [place], [phone], 13:33:26 Patient TargetsNo targets recorded. Patient Instructions Encounter Date Encounter Id Patient Instructions Last Modified By Organization Details Last Modified Time 08/04/2022 [id number] For purposes of coding the following apply: Visit Type: Established Hospice No Reviewed medications in the facility EHR and/or resident chart at facility Reviewed most recent vitals signs in the facility EHR and/or resident chart at facility Reviewed progress notes in the facility EHR and/or resident chart at facility Discussed resident with the facility clinical team If an order is not placed in [facility] then the order has been placed ordered through the facility. [email or web address] Not available 08/05/2022 08:53:05 09/24/2022 [id number] For purposes of coding the following apply: Visit Type: Subsequent Hospice No Reviewed medications in the facility EHR and/or resident chart at facility Reviewed most recent vitals signs in the facility EHR and/or resident chart at facility Reviewed progress notes in the facility EHR and/or resident chart at facility Discussed resident with the facility clinical team If an order is not placed in [facility] then the order has been placed ordered through the facility. Total time spent caring for the patient today was 31 minutes. This includes time spent before the visit reviewing the chart, time spent during the visit, and time spent after the visit on documentation. Not available 09/28/2022 08:56:41 12/03/2022 [id number] For purposes of coding the following apply: Visit Type: Subsequent Hospice No Reviewed medications in the facility EHR and/or resident chart at facility Reviewed most recent vitals signs in the facility EHR and/or resident chart at facility Reviewed progress notes in the facility EHR and/or resident chart at facility Discussed resident with the facility clinical team If an order is not placed in [facility] then the order has been placed ordered through the facility. Not available 12/03/2022 16:02:28 04/06/2023 [id number] For purposes of coding the following apply: Visit Type: Established Hospice No Reviewed medications in the facility EHR and/or resident chart at facility Reviewed most recent vitals signs in the facility EHR and/or resident chart at facility Reviewed progress notes in the facility EHR and/or resident chart at facility Discussed resident with the facility clinical team If an order is not placed in [facility] then the order has been placed ordered through the facility. Not available 04/06/2023 13:31:12 04/20/2023 [id number] For purposes of coding the following apply: Visit Type: Subsequent Hospice No Reviewed medications in the facility EHR and/or resident chart at facility Reviewed most recent vitals signs in the facility EHR and/or resident chart at facility Reviewed progress notes in the facility EHR and/or resident chart at facility Discussed resident with the facility clinical team If an order is not placed in [facility] then the order has been placed ordered through the facility. Not available 04/20/2023 14:31:52 Reason for Referral None Reported. Results Created Date Observation Date Name Description Value Unit Range Abnormal Flag Note LastModifiedBy Organization Detail LastModifiedTime Result Notes None recorded. Problems Name Problem SNOMED Code Status Onset Date Resolution Date Notes Provider Name and Address Organization Details Recorded Time Insomnia 650216882 Active 2020 Insomnia; [id number] iption: Insomnia, unspecifie d Not Available [facility] 3 02:51:08 Depressiv e disorder 52914779 Active 2020 Depression ; [id number] iption: Depression , unspecifie d Not Available [facility] 3 02:51:10 Hyperlipi demia 18912844 Active 2020 HLD (hyperlipi demia); [id number] iption: Hyperlipid emia, unspecifie d Not Available [facility] 3 02:51:10 Essential hypertens ion 98919931 Active 2022 Oral [place], [place] [facility] 10:32:30 Acute gout 100973073 Active [address], [place], [address] , [place] [facility] 3 11:58:05 Gout 13327316 Active [address], [place], [address] , [place] [facility] 3 11:58:48 Blood in urine 85193966 Active [address], [place], [address] , [place] [facility] 3 16:01:05 Dysuria 36104768 Active [address], [place], [address] , [place] [facility] 3 09:02:05 Bacterial conjuncti vitis 107702008 Active [address], [place], [address] , [place] [facility] 4 13:28:33 Upper respirato ry infection 21287583 Active 2023 ARMANDO GUO NP [address], [place], [address] , [place] [facility] 4 13:28:39 Mukesh cmlain 451159424 Active 2023 ARMANDO GUO NP [address], [place], [address] , [place] [facility] 4 14:29:11 Problem Notes None recorded. Medical Equipment None Reported. Allergies No known drug allergies Medications Name Sig Start Date Stop Date Status Note LastModified by Organization Details LastModified Time carvedilol 6.25 mg tablet Take 1 tablet twice a day by oral route for 90 days. 2023 active Not Available Not Available Not Avai lable pravastatin 40 mg tablet Take 1 tablet every day by oral route for 90 days. 2023 active Not Available Not Available Not Avai lable Keflex 500 mg capsule Take 1 capsule twice a day by oral route as directed for 5 days. 2022 active Not Available Not Available Not Avai lable sertraline 100 mg tablet TAKE 1 TABLET BY MOUTH DAILY 2022 active Not Available Not Available Not Avai lable naproxen 250 mg tablet Take 1 tablet every 8 hours by oral route as directed for 2 days. 2022 active Not Available Not Available Not Avai lable tobramycin 0.3 % eye drops INSTILL 1 DROP INTO AFFECTED EYE(S) BY OPHTHALMIC ROUTE EVERY 4 HOURS 2023 active Not Available Not Available Not Avai lable aspirin 81 mg chewable tablet Chew 1 tablet every day by oral route. active Not Available Not Available No t Available Vitamin D3 25 mcg (1,000 unit) capsule Take by oral route. active Not Available Not Available Not Available Vitamin B12 active Not Available Not A vailable Not Available Vitals Date Recorded Body temperature Heart rate Respiratory rate Systolic And Diastolic Provider Name and Address Organization Details Last Updated DateTime 08/04/2022 97.6 [degF] 88 /min 20 /min 120/59 mm[Hg] Carmen [place] [facility] 08:52:37 Social History Question Answer Notes LastModified by Organizat ion Details LastModified Time Tobacco Smoking Status Unknown If Ever Smoked Chiquita Rodriguez [facility], [place] [facility] 04/02/2022 08:02:55 What Is Your Relationship Status? [email or web address] Information not available 04/02/2022 Sex: Unknown Functional Status None recorded. Mental Status None recorded. Family History Nothing Reported. Medical History No medical history recorded. Gynecological HistoryNo gynecological history recorded. Obstetrics History GPAL:G 0 P 0 0 0 0 Past Encounters Encounter ID Performer Location Encounter Start Date Encounter Closed Date Diagnosis/Indication Diagnosis SNOMED-CT Code Diagnosis ICD10 Code Diagnosis IMO Codes Diagnosis Note [id number] [facility] [address] [place] [address] 04/02/2022 10:29:59 04/05/2022 11:40:43 Acquired trigger finger 4350918 M65.30 [id number] Oral Cruz CNP [facility] [address] [place] [address] 05/20/2022 14:19:52 05/21/2022 17:18:24 Mild neurocognitive disorder 408714878 G31.84 Essential hypertension 34764373 I10 [id number] KOKI Snyder-Oz [facility] [address] [place] [address] 06/30/2022 12:25:39 07/04/2022 10:24:25 Essential hypertension 60469003 I10 Continue on carvedilol . Low sodium diet. Monitor BP, BMP. Depressive disorder 3548 9007 F32.A Continue on Zoloft. Monitor for homicidal or suicidal ideation. Continue with non-pharma cological interventi ons. Supportive care. Hyperlipidemia 46170033 E78.5 Continue on statin therapy. Monitor lipid panel. Low fat, heart, healthy diet. Insomnia 252991241 G47.0 0 Not currently on medication therapy. Practice good sleeping hygiene. Report continued symptoms. Pain in right arm 540376 004 M79.601 patient is agreeable to x-ray. Request to be scheduled at [facility]. Continue with ice as needed and Tylenol as needed. Pain of right wrist 3169 942273 38668 M25.531 patient is agreeable to x-ray. Request to be scheduled at [facility]. Continue with ice as needed and Tylenol as needed. [id number] ANTONIA Snyder [facility] [address] [place] [address] 08/05/2022 08:49:12 08/06/2022 06:55:57 Major depressive disorder 188514323 F32.9 Continue on Zoloft. Monitor pH Q9. Monitor for homicidal or suicidal ideation. Supportive care. Continue with non-pharma cological interventi ons. Anxiety 95729246 F41.9 Continue on Zoloft. Continue with non-pharma cological interventi ons. Supportive care. [id number] ARMANDO GUO NP [facility] [address] [place] [address] 09/24/2022 14:43:07 09/28/2022 09:03:46 Acute gout 234681207 M10.031 -history of gout-ate halibut and then started having right wrist pain-start naproxen 750mg x1 then 250mg q8 x 3 days [id number] [facility] [address] [place] [address] 12/03/2022 15:59:15 12/03/2022 22:55:41 Blood in urine 59850022 R31.9 -acute over the last few days however now has resolved-R eported by patient to start yesterday, she denies clots-She reports that she was having some mild dysuria with the hematuria however this has now resolved-S he reports that there is no longer bright red blood in her urine notes 1 with a dark luis color-She denies history of bladder cancer, kidney stones, hematuria- We will hold off on labs or imaging at this time-Instr ucted her to call me if she continues to have symptoms [id number] ARMANDO GUO NP [facility] [address] [place] [address] 04/06/2023 12:52:11 04/15/2023 08:35:50 Bacterial conjunctivitis 642731847 H10.9 -acute-tob ramycin drops given in ED yesterday, will continue for 7 days Upper resp iratory infection 33097677 J06.9 -acute-lee ann led our office and went to ED 04/05-has been having cough and upper respirator y congestion -CXR, flu, COVID negative 04/05-given doxycyclin e and tessalon perrles in ED, continue [id number] [facility] [place] [address] [place] [address] 04/20/2023 14:25:49 04/25/2023 08:24:45 Depressive disorder 02028149 F32.A -chronic-m ildly depressed after the recent passing of her who was on hospice-fa evita only has tele health psych and patient doesn't want that or outpatient referral-d enies SI/HI-she is coping well, going out more to do things in the community Essential hypertension 17816025 I10 -chronic stable illness-BP reviewed and below 130/80-cur rent regimen: carvedilol 6.25mg BID-contin ue meds, monitor BP Osteoarthritis 104352428 M19.90 -chronic-u ses tylenol for OA pain control-co nsulting PT/OT Health Concerns Section Related Observation LastModified by Organization Detai ls LastModified Time None Recorded Concern Status LastModified by Organization Details LastModified Time None Recorded Advance Directives Directive None Recorded Payers Insurance Date Sequence Insurance Name Policy Number Policy Foster Covered Member ID Foster Member ID Guarantor Name 08/31/2023 1 [place] Frannie Dubois [id number] Frannie Dubois 09/07/2022 2 FOR LIFE ( - MEDICARE SUPPLEMENT) Frannie Dubois [id number] Frannie Dubois 04/22/2023 2 FOR LIFE () Frannie Dubois [id number] Frannie Dubois Notes Date Note Type Note Provider Name and Address Organization Details Recorded Time 08/04/2022 text/html Patient seen in domiciliary in lieu of office as the patient has a medical condition that makes it a taxing effort to leave the home. P atient seen for an acute visit for MDD. she is pleasant and cooperative with exam. Her breathing is even and unlabored on room air. She denies chest pain or shortness of breath. She reports depressive and anxiety symptoms are controlled on current dosage of Zoloft. She request a refill be sent to [facility] pharmacy on [facility]. No other concerns reported. [place], [place] [facility] 08/06/2022 06:55:49 09/24/2022 text/html ROS as noted in the HPI Patient seen in [facility] in lieu of office as the patient has a medical condition that makes it a taxing effort to leave the home. Patient seen for an acute visit for wrist pain. Wrist pain started last night after eating halibut. Reports history of gout ARMANDO GUO NP [address], [place], [address], [place] [facility] 09/28/2022 08:57:25 12/03/2022 text/html Patient seen for an acute visit for reported hematuria that began yesterday. She reports that she was having some discomfort with urination but this has not resolved. She also reports that she no longer has blood in her urine and now its more like a dark color. She also denies there ever being clots. Patient denies history of hematuria, bladder cancer, kidney stones. I discussed with her that if her symptoms are resolving that I do not think that there is a need for urinalysis or KUB at this time. I instructed her to call me if the hematuria returns I can get a UA or further imaging . ARMANDO GUO NP [address], [place], [address], [place] [facility]: [facility] 12/11/2022 14:29:46 04/06/2023 text/html Patient seen in [facility] in lieu of office as the patient has a medical condition that makes it a taxing effort to leave the home. P atient seen today for follow-up of chronic conditions to decrease risk of hospitalization. Patient seen in her room. Her on March 26. Has been having some upper respiratory congestion, left eye itching, and drainage. Denies n/v/d and fever. Reports she has not been feeling depressed. She is considering moving to [place]. [address], [place], [address], [place] [facility] 04/06/2023 13:33:41 04/20/2023 text/html Patient seen in domiciliary in lieu of office as the patient has a medical condition that makes it a taxing effort to leave the home. P atient seen for an acute visit for therapy F2F. She just returned from having 3 teeth pulled today. She is currently icing her left cheek, Reports pain well controlled. [place] eye is resolved from our last visit 04/06. Also URI resolved. ARMANDO GUO NP [address], [place], [address], [place] [facility] 04/20/2023 14:33:59 OBGyn Episode No OBEpisode recorded.
[2024-12-28 18:04] LABS: Alanine Aminotransferase* 16 U/L (4-35); Alkaline Phosphatase* 70 U/L (40-150); Anion Gap 5 mEq/L (7-15); Aspartate Amino Transferase* 23 U/L (12-35); Bilirubin Total* 0.7 mg/dL (0.1-1.5); Carbon Dioxide* 26 mmol/L (20-32)
[2024-12-28 18:05] LABS: Calcium* 9.4 mg/dL (8.4-10.6); Glucose* 112 mg/dL (60-115); Total Protein* 7.4 g/dL (6.0-8.3)
[2024-12-28 18:17] LABS: Blood Urea Nitrogen* 16 mg/dL (7-30); Creatinine* 0.8 mg/dL (0.5-1.5); Estimated Glomerular Filt Rate 71 ml/min
--- NOTE | 2024-12-28 20:20 | PM.IMHP1 ---
Assessment and Plan Assessment and plan (1) COVID: Problem comment: -symptomatic with generalized weakness, cough, increased rhinorrhea. + test at home -no hypoxia, no supplemental oxygen requirements -received 500 mL NS bolus in ED, encouraging oral intake -could consider Paxlovid if family is able to pick it up from pharmacy tomorrow Status: Acute (2) Weakness: Problem comment: -in setting of acute COVID infection -PT/OT consults Status: Acute (3) Hypertension: Problem comment: -continue home medications Status: Acute (4) Hyperlipidemia: Problem comment: -continue home medications Status: Acute (5) Osteoarthritis of knees, bilateral: Problem comment: Severe, [id number] -lidocaine patch for left knee pain Status: Acute Total Time Spent Total Time Spent: Today I spent 75 minutes seeing the patient, reviewing Expanse and EPIC notes/diagnostics, discussing the care plan with our care time that includes social work, PT/OT, pharmacy, RT, correction and documenting my impressions and plan in the medical record. Hospitalist- H&P: HPI History of Present Illness Date Seen: 12/28/24 Chief complaint: weakness Narrative: Frannie Dubois is a 89 year old female past medical history significant for hypertension, hyperlipidemia, depression, osteoarthritis is admitted to the medical floor from the ED for weakness related to acute COVID infection. Patient reports onset of cough last night, slightly improved today. Dry for the most part. No hypoxia. No supplemental oxygen requirements. Today, complains of generalized weakness. Reports near falls without actually falling. Staff have assisted her today. She has not had any fevers. Denies headache or dizziness currently. Denies chest pain or shortness of breath. No dyspnea. Has chronic rhinitis for which she uses Benadryl every morning. Slightly worse today. Denies abdominal pain, nausea, vomiting or diarrhea. No significant UTI symptoms other than decreased urine output with decreased oral intake in setting of decreased appetite. Patient is a resident at [facility] where she has her own apartment. ED attempted to find someone to stay with her or increase nursing services overnight but was unable to do so. PCP is Dr. Salgado. Review of Systems Narrative: REVIEW OF SYSTEMS: Complete review of systems performed and negative unless otherwise stated in HPI or below. Medical Decision Making Medical Decision Making Has patient completed a Health Care Directive: Yes [facility] Medical History Cataract ?H26.9 - Unspecified cataract (ICD-10) Urinary incontinence ?R32 - Unspecified urinary incontinence (ICD-10) Joint pain ?M25.50 - Pain in unspecified joint (ICD-10) Trouble walking ?R26.2 - Difficulty in walking, not elsewhere classified (ICD-10) Hypertension ?I10 - Essential (primary) hypertension (ICD-10) Hyperlipidemia ?E78.5 - Hyperlipidemia, unspecified (ICD-10) Depression ?F32.A - Depression, unspecified (ICD-10) Urinary frequency ?R35.0 - Frequency of micturition (ICD-10) Surgical History History of tonsillectomy ?Z90.89 - Acquired absence of other organs (ICD-10) H/O bilateral mastectomy ?Z90.13 - Acquired absence of bilateral breasts and nipples (ICD-10) Family History Other Family history unknown Social History What is your current living situation?: declined to answer Problems where you live: declined to answer In the past 12 months, utilities in danger of being shut off: declined to answer In past 12 months, lack of transportation kept you from medical appts, meetings, work, or getting things needed for daily living: unable to answer How hard is it for you to pay for the very basics like food, housing, medical care, and heating: not very hard In the past 12 mos, have been you worried that your food would run out before you had money to buy more?: declined to answer In the past 12 mos, the food you bought just didn't last and you didn't have money to buy more?: declined to answer Smoking Status: Never smoker Do you use any of these nicotine containing products: None Second hand tobacco smoke exposure: No How often do you have a drink containing alcohol: 4 or more times a week How many standard drinks containing alcohol do you have on a typical day: 1 or 2 AUDIT-C Alcohol total score: 4 Non-prescribed substance use: denies use How often does anyone, including family, friends and others, physically hurt you: decline to answer How often does anyone, including family, friends and others, insult or talk down to you: decline to answer How often does anyone, including family, friends and others, threaten you with harm: decline to answer How often does anyone, including family, friends and others, scream or curse at you: decline to answer Health Related Social Needs: unsheltered homelessness (Z59.02) Meds Home Medications and Allergies Home Medications ?Medication ?Instructions ?Recorded ?Confirmed ?Type cholecalciferol (vitamin D3) 25 25 mcg PO QDAY 02/22/24 12/28/24 History mcg (1,000 unit) capsule carvedilol 6.25 mg tablet 6.25 mg PO BID #180 tabs 04/06/24 12/28/24 Rx pravastatin 40 mg tablet 40 mg PO QDAY #90 tabs 04/06/24 12/28/24 Rx sertraline 100 mg tablet (Zoloft) 100 mg PO QDAY #90 tabs 08/25/24 12/28/24 Rx Walker- 2 Wheels #1 ea 10/17/24 11/23/24 Rx naproxen 500 mg tablet (Naprosyn) 500 mg PO BID PRN 11/16/24 12/28/24 History Allergies Allergy/AdvReac Type Severity Reaction Status Date / Time No Known Drug Allergies Allergy Verified 12/28/24 16:50 Exam Narrative: Exam Narrative: PHYSICAL EXAM General: Very pleasant, conversant, NAD HEENT: Normocephalic, atraumatic, sclera white, EOMI, oral mucosa moist Cardiovascular: RRR, S1S2. No pitting edema Pulmonary: CTA bilaterally without rhonchi, rales, expiratory wheezes. No dyspnea on room air Abdominal: Soft, nondistended, NTTP Neurological: Alert, answering questions appropriately, cranial nerves intact, no focal findings Extremities: No gross joint deformity or swelling. AROMI. Neurovascularly intact Skin: Warm, dry. Const: Vital Signs, click to edit/add: Vital Signs - 24 hr 12/28/24 16:46 12/28/24 17:16 12/28/24 17:24 Temperature 98.7 F Pulse Rate 103 H Pulse Rate [Right Pulse Oximeter] 94 Respiratory Rate 22 16 Blood Pressure 121/69 Blood Pressure [Ri ght Upper Arm] 136/79 Pulse Oximetry 94 94 Oxygen Delivery Me thod Room Air 12/28/24 17:45 12/28/24 18:00 12/28/24 18:15 Temperature Pulse Rate 99 88 84 Pulse Rate [Right Pulse Oximeter] Respiratory Rate 24 21 Blood Pressure Blood Pressure [Ri ght Upper Arm] Pulse Oximetry 95 94 96 Oxygen Delivery Me thod 12/28/24 18:30 12/28/24 18:45 12/28/24 19:00 Temperature Pulse Rate 83 86 80 Pulse Rate [Right Pulse Oximeter] Respiratory Rate 22 20 23 Blood Pressure Blood Pressure [Ri ght Upper Arm] Pulse Oximetry 97 97 96 [facility] 12/28/24 19:33 Temperature Pulse Rate Pulse Rate [Right Pulse Oximeter] Respiratory Rate 17 Blood Pressure Blood Pressure [Ri ght Upper Arm] Pulse Oximetry [facility] - H&P: Result Labs Labs: Short CBC 12/28/24 Range/Units 17:20 WBC 10.24 (4.50-11.00) K/uL Hgb 13.3 (12.0-16.0) gm/dL Hct 42.0 (33.0-51.0) % Plt Count 258 (140-440) K/uL BMP 12/28/24 17:20 Sodium 133 L Potassium 4.2 Chloride 102 Carbon Dioxide 26 BUN 16 Creatinine 0.8 Glucose 112 Calcium 9.4 Liver Function 12/28/24 Range/Units 17:20 Total Bilirubin 0.7 (0.1-1.5) mg/dL AST 23 (12-35) U/L ALT 16 (4-35) U/L Alkaline Phosphatase 70 (40-150) U/L Albumin 3.9 (3.3-5.0) g/dL Urine 12/28/24 Range/Units 17:47 Urine Color Yellow (Yellow) Urine Appearance Clear (Clear) Urine pH 8.0 (5.0-8.5) Ur Specific [place] 1.015 (1.000-1.030) Urine Protein Trace A (Negative) Urine Glucose (UA) Negative (Negative) Imaging Chest x-ray: Attestation: I have reviewed the pertinent imaging results. Radiologist's impression: Findings/Impression: No focal consolidation, pleural effusion, or pneumothorax. The cardiac silhouette is normal. Hazy/cloudy calcifications overlying the bilateral acromioclavicular and glenohumeral joints, which could be reflective of calcific deposition.
[2024-12-28] MEDS: PRAVASTATIN SODIUM 20 MG TABLET 40 MG PO (21:20)
[2024-12-28] MEDS: SERTRALINE 100 MG TABLET PO (21:20)
[2024-12-28] MEDS: LIDOCAINE 5% PATCH 1 PATCH TRANSDERMA (21:21)
[2024-12-28] MEDS: SODIUM CHLORIDE 0.9 % (FLUSH) 10 ML SYRINGE 5 ML IVF (21:22)
--- NOTE | 2024-12-28 22:50 | PC.NURSE ---
Shift note:[id number] The pt has been alert and oriented x3-4; appeared forgetful intermittently. Denied chest pain and short of breath at rest; the pt has been c/o short of breath with exertion and dry cough; SPo2 has been in the 90s in RA. The pt was very weak; 2-assist pivot to transfer from wheelchair to bed. No fever noted. Denied sore throat. The pt stated that she doesn't have an appetite. C/o of left calf pain i fell MD Connolly aware of; lidocaine patch was ordered by and applied to left calf. The pt was educated to call when she needs help and before she gets out of bed- call ,light is within reach
[2024-12-29 00:36] VITALS: BP 143/83; PULSE 70; RESP 16; TEMP 37; O2SAT 99
[2024-12-29 01:18] VITALS: PULSE 70; RESP 16
[2024-12-29 04:20] VITALS: BP 131/75; PULSE 76; RESP 18; TEMP 36.9; O2SAT 98
[2024-12-29 07:00] VITALS: BP 149/73; PULSE 82; RESP 18; TEMP 36.7; O2SAT 97
--- NOTE | 2024-12-29 08:32 | PC.NURSE ---
shift note: Pt is AOx4, but forgetful. Pt denies pain; expresses discomfort in L leg when standing. Pt unable to void first time to bedside commode w/ x2 assist. Bladder scan performed with findings >500cc. RN and ABY pivot pt to bedside commode, and second attempt pt voids and has large BM. Education provided on Covid disease process.
[2024-12-29] MEDS: SERTRALINE 100 MG TABLET PO (08:47)
[2024-12-29] MEDS: SODIUM CHLORIDE 0.9 % (FLUSH) 10 ML SYRINGE 5 ML IVF (08:49)
--- NOTE | 2024-12-29 10:36 | PM.DS1 ---
DS: Providers Provider Date Seen: 12/29/24 Date of admission: 12/28/24 20:40 Primary care physician: Yovani Salgado MD Admitting Clinician: Abril Medrano MD Consults: OT, PT, SW Attending Physician on discharge: Brittany Carrion MD Date of Discharge: 12/29/24 DS: Diagnosis Discharge Diagnosis (1) COVID: Status: Acute Problem details: -symptomatic with generalized weakness, cough, increased rhinorrhea. + test at home -no hypoxia, no tachycardia, no hypotension -did not require any COVID specific therapies -declined Paxlovid upon discharge after discussion 12/29 (2) Weakness: Status: Acute Problem details: -in setting of acute COVID infection -seen by PT and OT with no needs identified (3) Hypertension: Status: Acute Problem details: -continue home medications; shared with nursing staff that she takes both of her carvedilol doses at night, recommend taking this BID as ordered (4) Hyperlipidemia: Status: Acute Problem details: -continued home medications (5) Osteoarthritis of knees, bilateral: Status: Acute Problem details: -Severe, [id number] -lidocaine patch for left knee pain DS: Summary Hospital Course Hospital Course: Frannie was admitted to the hospital last night weakness in the setting of known COVID infection. She lives at an assisted living facility; was unable to return home last night given her weakness. In addition to weakness, had rhinorrhea. No cough or dyspnea, did not require any COVID specific therapies. Overnight, VS remained stable. She felt 1000% better today and no needs were identified by therapy teams. Charly accepted patient back to facility; patient discharged home on 12/29/2024 with PCP f/u. Status at Discharge Functional status at discharge: uses cane/walker Overall status at discharge: patient is progressing back to baseline Time Spent with Patient Time attestation: Total time spent providing and/or coordinating discharge services: Time spent: Greater than 30 minutes Exam Narrative: Exam Narrative: GEN: Alert and oriented, sitting in bedside chair and having breakfast, nontoxic HEENT: Clear rhinorrhea, EOMIs bilaterally, no scleral icterus CV: RRR, soft systolic murmur without concerning features R: LCTA bilaterally Ext: wwp, no concerning edema Skin: No concerning skin lesions or rashes on exposed skin Neuro: Nonfocal Psych: Appropriate Const: Vital Signs, click to edit/add: Vital Signs - 24 hr 12/28/24 16:46 12/28/24 17:16 12/28/24 17:24 Temperature 98.7 F Pulse Rate 103 H Pulse Rate [Pulse Oximeter] Pulse Rate [Right Pulse Oximeter] 94 Respiratory Rate 22 16 Blood Pressure 121/69 Blood Pressure [Ri ght Arm] Blood Pressure [Ri ght Upper Arm] 136/79 Pulse Oximetry 94 94 Oxygen Delivery Me thod Room Air 12/28/24 17:45 12/28/24 18:00 12/28/24 18:15 Temperature Pulse Rate 99 88 84 Pulse Rate [Pulse Oximeter] Pulse Rate [Right Pulse Oximeter] Respiratory Rate 24 21 Blood Pressure Blood Pressure [Ri ght Arm] Blood Pressure [Ri ght Upper Arm] Pulse Oximetry 95 94 96 Oxygen Delivery Me thod 12/28/24 18:30 12/28/24 18:45 12/28/24 19:00 Temperature Pulse Rate 83 86 80 Pulse Rate [Pulse Oximeter] Pulse Rate [Right Pulse Oximeter] Respiratory Rate 22 20 23 Blood Pressure Blood Pressure [Ri ght Arm] Blood Pressure [Ri ght Upper Arm] Pulse Oximetry 97 97 96 Oxygen Delivery Me thod 12/28/24 19:33 12/28/24 20:53 12/28/24 20:53 Temperature 98.9 F 98.1 F Pulse Rate Pulse Rate [Pulse Oximeter] 84 Pulse Rate [Right Pulse Oximeter] Respiratory Rate 17 20 Blood Pressure Blood Pressure [Ri ght Arm] 146/77 H 146/79 H Blood Pressure [Ri ght Upper Arm] Pulse Oximetry 96 Oxygen Delivery Me thod Room Air Room Air 12/28/24 21:00 12/29/24 00:36 12/29/24 01:18 Temperature 98.6 F Pulse Rate Pulse Rate [Pulse Oximeter] 70 70 Pulse Rate [Right Pulse Oximeter] Respiratory Rate 20 16 16 Blood Pressure Blood Pressure [Ri ght Arm] 143/83 H Blood Pressure [Ri ght Upper Arm] Pulse Oximetry 96 99 Oxygen Delivery Me thod Room Air Room Air 12/29/24 04:20 Temperature 98.4 F Pulse Rate Pulse Rate [Pulse Oximeter] 76 Pulse Rate [Right Pulse Oximeter] Respiratory Rate 18 Blood Pressure Blood Pressure [Ri ght Arm] 131/75 Blood Pressure [Ri ght Upper Arm] Pulse Oximetry 98 Oxygen Delivery Me thod Room Air DS: Data Data Completed and Pending Labs on day of discharge: Labs from last 24 hours 12/29/24 12/28/24 12/28/24 05:10 17:47 17:20 WBC Pending 10.24 RBC Pending 4.37 Hgb Pending 13.3 Hct Pending 42.0 MCV Pending 96 MCH Pending 30 MCHC Pending 32 RDW Coeff of Ana 13.4 Plt Count Pending 258 Neut % (Auto) 72.8 H Lymph % (Auto) 14.5 L [place] % (Auto) 11.9 H Eos % (Auto) 0.5 Baso % (Auto) 0.1 Neut # (Auto) 7.50 H Lymph # (Auto) 1.50 [place] # (Auto) 1.20 H Eos # (Auto) 0.05 Baso # (Auto) 0.01 Abs Immat Gran (auto) 0.02 Imm/Tot Granulo (auto) 0.2 Sodium Pending 133 L Potassium Pending 4.2 Chloride Pending 102 Carbon Dioxide Pending 26 Anion Gap Pending 5 L BUN Pending 16 Creatinine Pending 0.8 Estimated GFR Pending 71 Glucose Pending 112 Calcium Pending 9.4 Total Bilirubin 0.7 AST 23 ALT 16 Alkaline Phosphatase 70 C-Reactive Protein Pending 2.0 H Total Protein 7.4 Albumin 3.9 Urine Color Yellow Urine Appearance Clear Urine pH 8.0 Ur Specific [place] 1.015 Urine Protein Trace A Urine Glucose (UA) Negative Urine Ketones Negative Urine Blood Negative Urine Nitrite Negative Urine Bilirubin Negative Urine Urobilinogen 2.0 A Ur Leukocyte Esterase Negative Urine RBC 0-2 Urine WBC 2-5 Ur Squamous Epith Cells Few Urine Bacteria Few A Preliminary micro results at discharge 12/28/24 17:47 Urine Culture - Preliminary Urine,Clean Catch Culture in Progress Discharge Plan Discharge Disposition: Home, Self-Care Date of Admission: 12/28/24 20:40 Attending Provider on Discharge: Brittany Carrion Primary Care Provider: Yovani Salgado Condition: Improved Anticipated Discharge Date/Time: 12/29/24 10:26 Discharge Medications: Continued cholecalciferol (vitamin D3) 25 mcg (1,000 unit) capsule 25 mcg PO QDAY carvedilol 6.25 mg tablet 6.25 mg PO BID Qty: 180 3RF Rx Instructions: must administer with a meal/food pravastatin 40 mg tablet 40 mg PO QDAY Qty: 90 3RF aspirin 81 mg tablet,delayed release (DR/EC) 81 mg PO DAILY sertraline [Zoloft] 100 mg tablet 100 mg PO QDAY Qty: 90 1RF Held naproxen [Naprosyn] 500 mg tablet 500 mg PO BID PRN Hold Instructions: hold until f/u with Dr. Salgado Discharge Orders: Discharge Order (Routine); Ordered 12/29/24 Ordered By: Brittany Carrion Additional Instructions: You should take your Carvedilol twice/day (Rather than both tablets at night). Hold your Naproxen until you see Dr. Salgado in followup. You can use Nyquil and dayquil or Robitussin for COVID symptoms as needed. Activity Level: No strenuous activity Discharge Diet: Regular Follow Up Appointments: Yovani Salgado MD [Primary Care Provider, Internal Medicine] - 01/10/25 10:00 am Referral Note: [facility]
[2024-12-29 10:45] VITALS: BMI 32.5
--- NOTE | 2024-12-29 10:48 | PC.SOCIAL ---
Addendum entered by STEPHANIA Rankin 12/29/24 14:16: Discharge planning: garage worker secure emailed pt's PT/OT notes to Mary at [facility], as well as, the pt's signed discharge orders with signed medication list. [facility] will start managing and administering her medications for her, which the pt was onboard with. Pt's cousin, Elsie, will be transporting her back to [facility] this afternoon. garage worker also updated the pt's [id number] and the pt's sister via phone. Social work to follow-up as needed. Original Note: Discharge planning: garage worker reached out to SANDY Underwood at [facility]. Mary and staff at [facility] are aware that the pt tested positive for COVID, as they tested her yesterday at the facility. Mary was not aware that the pt went to the hospital. The pt did go to the ED later in the day/evening yesterday. garage worker secure emailed Mary the pt's ED note and H&P. garage worker will secure email the PT/OT notes when they are available. Mary states that the pt may return to [facility] today. garage worker notified the provider on duty. Social work to follow-up as needed.
[2024-12-29 11:00] VITALS: BP 111/63; PULSE 82; RESP 20; TEMP 36.7; O2SAT 96
[2024-12-29 11:05] LABS: Hematocrit* 38.7 % (33.0-51.0); Hemoglobin* 12.4 gm/dL (12.0-16.0); Mean Corpuscular HGB Conc 32 gm/dL (32-36); Mean Corpuscular Hemoglobin 31 pg (26-34); Mean Corpuscular Volume 97 fL (80-100); Red Blood Count* 4.00 m/uL (4.00-5.20); White Blood Count* 8.75 K/uL (4.50-11.00)
[2024-12-29 11:06] LABS: Slide Review Reflex No
[2024-12-29 11:13] LABS: Chloride* 97 mmol/L (96-114); Potassium* 4.1 mmol/L (3.6-5.1); Sodium* 131 mmol/L (135-149)
[2024-12-29 11:16] LABS: Anion Gap 8 mEq/L (7-15); Blood Urea Nitrogen* 14 mg/dL (7-30); Calcium* 8.9 mg/dL (8.4-10.6); Carbon Dioxide* 26 mmol/L (20-32); Creatinine* 0.7 mg/dL (0.5-1.5); Est. Creatinine Clearance* 35.66; Estimated Glomerular Filt Rate 84 ml/min; Glucose* 115 mg/dL (60-115)
--- NOTE | 2024-12-29 13:49 | PC.NURSE ---
Pt a/ x4, assist of 1 w/walker. No pain reported though out shift, pt complained of malaise and weakness. DC education given to pt both written and verbally, all question answered, IV removed cath intact. Pt left facility accompanied by cousin and staff via wheelchair
== END 2024-12-29 13:40 | disposition home or self-care (01) ==
LOC: ED 20:11 → MEDSURG 20:41
PROVIDERS: Physician Assistant; Admitting Provider Family Medicine; Emergency Provider Family Medicine; PCP Internal Medicine; Visit Provider Family Medicine
DX: U07.1 COVID-19 (principal); R53.1 Weakness; I10 Essential (primary) hypertension; E78.5 Hyperlipidemia, unspecified; M17.0 Bilateral primary osteoarthritis of knee
CPT/HCPCS: 36415; 71045; 80048; 80053; 81001; 85025; 85027; 86140; 87081; 87086; 94761; 96360; 96361; 97161; 97165; 97535; 99284; 99285; A9270; G0378; J7030

== ENCOUNTER 2024-12-29 23:08 | Outpatient (CLI) | payer MEDICARE, OTHER, SELFPAY | END 2024-12-29 23:09 | disposition home or self-care (01) | LOC: AMB 01-02 19:22 | PROVIDERS: PCP Internal Medicine; Visit Provider Family Medicine | DX: R41.82 Altered mental status, unspecified (principal) | CPT/HCPCS: A0998 ==